=== PATIENT | female | born 2000 | race Hispanic/Latino ===

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

== ENCOUNTER 2021-01-05 10:56 | Emergency (ER) | payer OTHER ==
--- OUTSIDE RECORDS SUMMARY | 2021-01-05 10:58 | XMS REPORT | Continuity of Care Document ---
:2000 Author Organization [facility] t Address [address] [place] [address] Care Team Providers Name Role Phone Luis Alfredo Max DO Attending Clinician Doctor Unassigned, Name Attending Clinician Unavailable Akinsipe WHCNP, C Attending Clinician Arsenio COOMBSP, R Attending Clinician Problems This patient has no known problems. Allergies, Adverse Reactions, Alerts This patient has no known allergies or adverse reactions. Medications This patient has no known medications. Procedures This patient has no known procedures. Encounters Start End Encounter Admission Attending Care Care Encounter Source Date/Time Date/Time Type Type Clinicians Facility Department ID 2020-08-08 2020-08-08 Patient ZANDER Max [id number] 00:00:00 00:00:00 Outreach Luis Alfredo VILA [id number] Joey [facility] [id number] PRINCESS [id number] 2020-06-29 2020-06-29 Orders Doctor ALBA [id number] 00:00:00 00:00:00 Only UnassignedENEIDA [id number] Villan[place]va [facility] [id number] 2020-06-07 2020-06-07 Initial ZANDER Oneill [id number] 14:57:16 15:57:08 Rozina C ASSURANCE AUDITOR [id number] Visit REGIONAL [id number] MATERNAL [id number] & CHILD 107 [facility] 2020-06-07 2020-06-07 Orders Doctor ANJALI [id number] 00:00:00 00:00:00 Only Unassigned, ENEIDA [id number] [place] [id number] 2019-05-03 2019-05-03 Patient Doctor ANJALI [id number] 00:00:00 00:00:00 Secure Msg Unassigned, ENEIDA [id number] [place] [id number] 2019-02-04 2019-02-04 Routine Arsenio [facility] [id number] 10:51:35 11:16:15 Rosjovanynda R ASSURANCE AUDITOR [id number] Visit REGIONAL [id number] MATERNAL [id number] & CHILD 107 [facility] 2019-01-26 2019-01-26 Routine Arsenio [facility] [id number] 11:12:01 11:58:34 Roshunda R ASSURANCE AUDITOR [id number] Visit REGIONAL [id number] MATERNAL [id number] & CHILD 107 [facility] Results This patient has no known results.
--- NOTE | 2021-01-05 12:54 | RAD REPORT ---
EXAM DESCRIPTION: US - Abdomen Exam Limited - 01/05/2021 12:45 pm CLINICAL HISTORY: ABD PAIN COMPARISON: No comparisons FINDINGS: No gallstones, sludge or other abnormalities within the gallbladder lumen. There is no wal l thickening or pericholecystic fluid. No common duct stone or biliary tree dilatation identified. IMPRESSION: Normal gallbladder and biliary tree ultrasound.
[2021-01-05 13:58] LABS: Absolute Lymphocytes (CBC) 2.1 K/uL (0.7-4.9); Basophils % 0.6 % (0-1.3); Hematocrit 33.5 % (36.0-45.0); Lymphocytes % 22.3 % (15.3-44.8); MPV 9.1 fL (7.6-11.3); RBC Red Blood Cell Count 4.01 M/uL (3.86-4.86)
[2021-01-05 14:17] LABS: ALT/SGPT 18 U/L (12-78); AST/SGOT 13 U/L (15-37); Albumin 2.8 g/dL (3.4-5.0); Alkaline Phosphatase 145 U/L (45-117); BUN Blood Urea Nitrogen 7 mg/dL (7-18); Bicarbonate 23 mmol/L (21-32); Bilirubin Direct 0.1 mg/dL (0-0.2); Bilirubin Total 0.5 mg/dL (0.2-1.0); Glucose Level 65 mg/dL (74-106); Lipase 76 U/L (73-393); Protein, Total 7.4 g/dL (6.4-8.2); Sodium Level 138 mmol/L (136-145)
--- NOTE | 2021-01-05 14:39 | ER ---
Nurse's Notes [facility] Name: Maria L Foreman Age: 20 yrs Sex: Female : 2000 Arrival Date: 01/05/2021 Time: 10:57 Bed 20 Private MD: Jim Melo B Diagnosis: Upper abdominal pain, unspecified Presentation: 01/05 12:08 Chief complaint: Patient states: Epigastric pain, Nausea \T\ Vomiting starting at 0800. da3 Pt was seen at L\T\D and cleared. Coronavirus screen: Client denies travel out of the [place] in the last 14 days. At this time, unable to obtain information related to travel outside the [place] At this time, the client does not indicate any symptoms associated with coronavirus-19. Ebola Screen: Patient negative for fever greater than or equal to 101.5 degrees Fahrenheit, and additional compatible Ebola Virus Disease symptoms Patient denies exposure to infectious person. Patient denies travel to an Ebola-affected area in the 21 days before illness onset. Initial Sepsis Screen: Does the patient meet any 2 criteria? No. Patient's initial sepsis screen is negative. Does the patient have a suspected source of infection? No. Patient's initial sepsis screen is negative. Risk Assessment: Do you want to hurt yourself or someone else? Patient reports no desire to harm self or others. Onset of symptoms was January 05, 2021 at 08:00. 12:08 Method Of Arrival: Wheelchair da3 12:08 Acuity: LEV 3 da3 Triage Assessment: 12:11 General: Appears in no apparent distress. Behavior is calm, cooperative, appropriate da3 for age, quiet. Pain: Complains of pain in epigastric area Pain does not radiate. Pain currently is 8 out of 10 on a pain scale. at worst was 8 out of 10 on a pain scale. level that patient reports is acceptable is 3 out of 10 on a pain scale. Quality of pain is described as sharp, Is episodic. GI: Reports upper abdominal pain, nausea, vomiting. 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 - Social history:: Smoking status: Patient denies any tobacco usage or history of. Assessment: 15:12 Reassessment: Patient appears in no apparent distress at this time. Patient and/or ss family updated on plan of care and expected duration. Pain level reassessed. Patient is alert, oriented x 3, equal unlabored respirations, skin warm/dry/pink. FHTs 145. Vital Signs: 12:08 BP 106 / 75; Pulse 84; Resp 20; Temp 97.8(O); Pulse Ox 97% on R/A; Weight 89.36 kg (R); da3 Height 5 ft. 2 in. (157.48 cm) (R); Pain 7/10; 12:08 Body Mass Index 36.03 (89.36 kg, 157.48 cm) da3 ED Course: 10:57 Patient arrived in ED. am2 10:57 Jim Melo MD is Private Physician. am2 12:11 Triage completed. da3 12:11 Arm band placed on. da3 12:45 US Abdomen Limited In Process Unspecified. EDMS 13:24 Initial lab(s) drawn, by me, sent to lab. Inserted saline lock: 20 gauge in right dh3 antecubital area, using aseptic technique. Blood collected. 14:12 Patient placed in an exam room, on a stretcher. ll1 14:13 Shazia Malone FNP-C is [facility]. kb 14:13 Darvin Zuniga MD is Attending Physician. kb 14:59 Mohini Washington, CATAL[employer] is Primary Nurse. ss 15:11 No provider procedures requiring assistance completed. IV discontinued, intact, ss bleeding controlled, No redness/swelling at site. Pressure dressing applied. Administered Medications: 15:00 Drug: Pepcid (famotidine) 20 mg Route: IVP; Site: right antecubital; ss 15:12 Follow up: Response: No adverse reaction ss 15:00 Drug: Tylenol 650 mg Route: PO; ss 15:12 Follow up: Response: No adverse reaction ss Outcome: 14:38 Discharge ordered by . kb 15:11 Discharged to home ambulatory. ss 15:11 Condition: good 15:11 Discharge instructions given to patient, Instructed on discharge instructions, follow up and referral plans. medication usage, Demonstrated understanding of instructions, follow-up care. 15:12 Patient left the ED. ss Signatures: Dispatcher [employer] EDUT Shazia Malone, TABLE GAMES SHIFT MANAGER-C TABLE GAMES SHIFT MANAGER-Mohini Hewitt, RN RN Dai Esparza Nicole Lund 3 August Truong RN RN ll1 Everardo Serrato, RN RN da3
--- NOTE | 2021-01-05 14:39 | EDPHYS ---
[facility] Name: Maria L Foreman Age: 20 yrs Sex: Female : 2000 Arrival Date: 01/05/2021 Time: 10:57 Bed 20 Private MD: Jim Melo B ED Physician Darvin Zuniga HPI: 01/05 16:55 This 20 yrs old Female presents to ER via Wheelchair with complaints of kb Abdominal Pain - 36 wks preg. 16:55 The patient presents with abdominal pain in the epigastric area. Onset: The kb symptoms/episode began/occurred this morning. The symptoms do not radiate. Associated signs and symptoms: none. The symptoms are described as burning. Modifying factors: The symptoms are alleviated by nothing, the symptoms are aggravated by nothing. Severity of pain: At its worst the pain was mild moderate in the emergency department the pain is unchanged. The patient has not experienced similar symptoms in the past. The patient has not recently seen a physician. 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 - Social history:: Smoking status: Patient denies any tobacco usage or history of. ROS: 16:54 Constitutional: Negative for fever, chills, and weight loss. kb 16:54 Abdomen/GI: Positive for abdominal pain, Negative for nausea, vomiting, and diarrhea. 16:54 All other systems are negative. Exam: 16:54 Constitutional: This is a well developed, well nourished patient who is awake, alert, kb and in no acute distress. Head/Face: Normocephalic, atraumatic. ENT: Moist Mucous membranes Cardiovascular: Regular rate and rhythm with a normal S1 and S2. No gallops, murmurs, or rubs. No pulse deficits. Respiratory: Respirations even and unlabored. No increased work of breathing, no retractions or nasal flaring. Back: No spinal tenderness. No costovertebral tenderness. Full range of motion. Skin: Warm, dry with normal turgor. Normal color. MS/ Extremity: Pulses equal, no cyanosis. Neurovascular intact. Full, normal range of motion. Neuro: Awake and alert, GCS 15, oriented to person, place, time, and situation. Moves all extremities. Normal gait. Psych: Awake, alert, with orientation to person, place and time. Behavior, mood, and affect are within normal limits. 16:54 Abdomen/GI: Inspection: gravid appearance, is noted, Bowel sounds: normal, Palpation: soft, in all quadrants, mild abdominal tenderness, in the epigastric area. Vital Signs: 12:08 BP 106 / 75; Pulse 84; Resp 20; Temp 97.8(O); Pulse Ox 97% on R/A; Weight 89.36 kg (R); da3 Height 5 ft. 2 in. (157.48 cm) (R); Pain 7/10; 12:08 Body Mass Index 36.03 (89.36 kg, 157.48 cm) da3 MDM: 14:13 Patient medically screened. kb 16:53 Data reviewed: vital signs, nurses notes. Data interpreted: Pulse oximetry: on room air kb is 97 %. Interpretation: normal. Counseling: I had a detailed discussion with the patient and/or guardian regarding: the historical points, exam findings, and any diagnostic results supporting the discharge/admit diagnosis, lab results, radiology results, the need for outpatient follow up, a family practitioner, an OB/Gyne specialist, to return to the emergency department if symptoms worsen or persist or if there are any questions or concerns that arise at home. 01/05 12:18 Order name: Basic Metabolic Panel; Complete Time: 14:18 kb 01/05 12:18 Order name: CBC with Diff; Complete Time: 14:38 kb 01/05 12:18 Order name: Hepatic Function; Complete Time: 14:18 kb 01/05 12:18 Order name: Lipase; Complete Time: 14:18 kb 01/05 12:18 Order name: US Abdomen Limited; Complete Time: 13:45 kb 01/05 12:18 Order name: IV Saline Lock; Complete Time: 13:27 kb 01/05 12:18 Order name: Labs collected and sent; Complete Time: 13:27 kb Administered Medications: 15:00 Drug: Pepcid (famotidine) 20 mg Route: IVP; Site: right antecubital; ss 15:12 Follow up: Response: No adverse reaction ss 15:00 Drug: Tylenol 650 mg Route: PO; ss 15:12 Follow up: Response: No adverse reaction ss Disposition: 19:29 Co-signature as Attending Physician, Darvin Zuniga MD I agree with the assessment and kdr plan of care. Disposition Summary: 01/05/21 14:38 Discharge Ordered Location: Home kb Condition: Stable kb Diagnosis - Upper abdominal pain, unspecified kb Followup: kb - With: Emergency Department - When: As needed - Reason: Worsening of condition Followup: kb - With: Private Physician - When: 2 - 3 days - Reason: Recheck today's complaints, Continuance of care, Re-evaluation by your physician Discharge Instructions: - Discharge Summary Sheet kb - Abdominal Pain, Adult, [id number] kb - Abdominal Pain During , [id number] kb Forms: - Medication Reconciliation Form kb - Thank You Letter kb - Antibiotic Education kb - Prescription Opioid Use kb Signatures: Dispatcher [employer] EDShazia Mcclendon, PATIENT ACCOUNT LIAISON-C PATIENT ACCOUNT LIAISON-Darvin Garrsion MD MD kdr Smirch, Shelby, RN RN Everardo Mai, RN RN da3
[2021-01-05] MEDS ORDERED: ACETAMINOPHEN 325 MG TABLET ONE (15:26)
[2021-01-05] MEDS ORDERED: FAMOTIDINE 20 MG/2 ML VIAL IV ONE (15:27)
[2021-01-05 17:45] VITALS: BP 106/75; TEMP 97.8; O2SAT 97
== END 2021-01-05 15:12 | disposition home or self-care (01) ==
LOC: ER 10:56
DX: O26.893 Other specified pregnancy related conditions, third trimester (principal); Z3A.36 36 weeks gestation of pregnancy
CPT/HCPCS: 36415; 76705; 80048; 80076; 83690; 85025; 96374; 99284

== ENCOUNTER 2021-01-29 14:15 | Inpatient (IN) | payer OTHER ==
--- OUTSIDE RECORDS SUMMARY | 2021-01-29 14:18 | XMS REPORT | Continuity of Care Document ---
:2000 Author Organization [facility] t Address [address] [place] [address] Care Team Providers Name Role Phone Luis [...] ID 2020-08-08 2020-08-08 Patient ZANDER Max [id number] 00:00:00 00:00:00 Outreach Luis Alfredo VILA [id number] Joey [facility] [id number] PRINCESS [id number] 2020-06-29 2020-06-29 Orders Doctor ALBA [id number] 00:00:00 00:00:00 Only UnassignedENEIDA 350.1.13.[address] [facility] 4.2.7.2.686 [id number] 2020-06-07 2020-06-07 Initial ZANDER Oneill [id number] 14:57:16 15:57:08 Rozina C [employer] STATISTICAL PROGRAMMER [id number] Visit REGIONAL 4.2.7.2.686 MATERNAL [id number] & CHILD [address] [facility] 2020-06-07 2020-06-07 Orders Doctor ANJALI 1.2.840.114 [id number] 00:00:00 00:00:00 Only Unassigned, ENEIDA 350.1.13.10 [place] [id number] 2019-05-03 2019-05-03 Patient Doctor ANJALI [id number] 00:00:00 00:00:00 Secure Msg Unassigned, ENEIDA 350.1.13.10 [place] [id number] 2019-02-04 2019-02-04 Routine Arsenio [facility] 1.2.840.114 [id number] 10:51:35 11:16:15 Rosjovanynda R SAS STATISTICAL PROGRAMMER 350.1.13.10 Visit REGIONAL 4.2.7.2.686 MATERNAL [id number] & CHILD [address] [facility] 2019-01-26 2019-01-26 Routine Arsenio [facility] 1.2.840.114 [id number] 11:12:01 11:58:34 Roshunda R SAS STATISTICAL PROGRAMMER 350.1.13.10 Visit REGIONAL 4.2.7.2.686 MATERNAL [id number] & CHILD [address] [facility] Results This patient has no known results.
[2021-01-29 15:38] VITALS: BMI 38.0
[2021-01-29] MEDS ORDERED: BUTORPHANOL 1 MG/ML INJ IV PRN (16:07)
[2021-01-29] MEDS ORDERED: CARBOPROST TROME 250 MCG/ML IM PRN (16:07)
[2021-01-29] MEDS ORDERED: PROMETHAZINE INJ 25 MG/ML AMP IM PRN ×2 (16:07)
[2021-01-29] MEDS ORDERED: METHYLERGONOVINE 0.2MG/ML AMP IM PRN (16:07)
[2021-01-29] MEDS ORDERED: Ringers Lactate 1,000 ML IV PRN (16:07)
[2021-01-29] MEDS ORDERED: PENICILLIN 5 MU in NA CHLORIDE 0.9% 100 ML IV ONE (16:07)
[2021-01-29] MEDS ORDERED: PENICILLIN G POT 5 MU/100 ML VIAL IV SCH (17:00)
[2021-01-29] MEDS ORDERED: PENICILLIN 2.5 MU in NA CHLORIDE 0.9% 100 ML IV SCH (17:00)
[2021-01-29] MEDS ORDERED: Ringers Lactate 1,000 ML IV SCH (17:00)
[2021-01-29] MEDS ORDERED: OXYTOCIN/LR 20 UNIT/1,000 ML BAG IV SCH (17:00)
[2021-01-29 18:30] LABS: Absolute Lymphocytes (CBC) 2.4 K/uL (0.7-4.9); Basophils % 0.9 % (0-1.3); Hematocrit 34.4 % (36.0-45.0); Lymphocytes % 26.7 % (15.3-44.8); MPV 9.6 fL (7.6-11.3); RBC Red Blood Cell Count 4.05 M/uL (3.86-4.86)
[2021-01-29 23:10] LABS: RPR (Rapid Plasma Reagin) NON-REACT (NON-REACT)
[2021-01-30] MEDS ORDERED: PENICILLIN G POT 5 MU/VIAL IV ONE (03:15)
[2021-01-30] MEDS ORDERED: NA CHLORIDE 0.9% 50 ML ONE (03:16)
[2021-01-30] MEDS ORDERED: ROPIVACAINE HCL 0.2% 20ML AMP EP ONE (06:34)
[2021-01-30] MEDS ORDERED: FENTANYL CITR 100 MCG/2 ML IV ONE (06:34)
[2021-01-30] MEDS ORDERED: 0.2% ROPIVACAINE (200 MG/100 ML) BAG EP ONE (06:35)
[2021-01-30] MEDS ORDERED: LIDOCAINE 1% MPF 30 ML VIAL ONE (07:54)
[2021-01-30] MEDS ORDERED: METHYLERGONOVINE 0.2MG/ML AMP IM ONE (07:54)
--- NOTE | 2021-01-30 09:11 | PREOPHP ---
Date of Admission: 01/29/2021 History Of Present Illness: Maria L Foreman is a 21-year-old, 2, para 1, 38 weeks 6 days. Had oligohydramnios with the first necessitating induction. Had oligohydramnios with this pre gnancy, but it did seem to be improving. Secondary to a terrible cervix and weather conditions, it w as decided proceed with induction at 38 weeks and 6 days. A 2 cm on admission. The patient was cont racting on her own actually. Experienced spontaneous rupture of membranes, clear fluid even before t he Pitocin was started. Started on Pitocin at 3 a.m. and went rapidly to complete. During the labor , received Stadol 1 mg IV, Phenergan [address] Hernandez came in and did a quick one shot epidural. Family History: Mother with hypertension, diabetes on the paternal side of the family. Past Medical History: The patient has had no serious medical illnesses. Past Surgical History: No surgery. Allergies: NO ALLERGIES. Social History: No cigarette smoking. Medications: vitamins prior to admission. Physical Examination: HEENT: Clear. Pupils equal, round, and reactive to light and accommodation. Conjunctivae well perf used. No oral, lingual, buccal lesions. Chest and Lungs: Clear. Heart: Without murmurs, thrills, heaves, or rubs. Breasts: Without masses. Extremities: Clear without edema, cyanosis, or clubbing. Pelvic: A 2 cm, 50% effaced, vertex, well applied, -1 station. Assessment And Plan: Admit for delivery. The patient was obviously in early spontaneous labor. BUBBA/KITTY Voice ID: [id number]
--- NOTE | 2021-01-30 09:14 | DN ---
Surgeon: Jim Melo MD Maria L Foreman is a 21-year-old, 2, para 1, at 38 weeks 6 days, history of oligohydramnios. E xperienced spontaneous rupture of membranes before midnight, was started on penicillin prophylaxis. She received 3 doses during the labor. Stadol 1 mg IV, Phenergan 25 mg IM, at 5-6 cm, requested epid ural anesthesia. Dr. Hernandez did one shot epidural. Second stage of about 10-15 minutes. Spontaneous vaginal delivery of a 6-pound 11-ounce male , Apgars 9 and 9. No episiotomy. Two small first- degree lacerations, one below the clitoris which required several stitches of 2-0 chromic running and interrupted. One small laceration to posterior fourchette, 2 stitches of 2-0 chromic. Local infilt ration in both places as epidural is not fully functional. Tolerated all procedures well. She is re porting pruritus secondary to the epidural, but otherwise quite stable and doing well. The patient i s Rh positive, immune to rubella, negative COVID, positive strep for which she received prophylactic antibiotics x3. BUBBA/KITTY Voice ID: [id number] Report ID: [id number]
[2021-01-30] MEDS ORDERED: MEASLES,MUMPS,RUBELLA VAC 0.5ML SQVAC ONE (12:15)
[2021-01-30] MEDS ORDERED: Tdap (Diph,Pertuss(Acell),Tet Vac) 0.5 ML SYR IMVAC ONE (12:15)
[2021-01-30] MEDS ORDERED: DOCUSATE NA/SENNA CONC 1 TAB PO PRN (12:15)
[2021-01-30] MEDS ORDERED: ONDANSETRON 4 MG (ODT) TAB PO PRN (12:15)
[2021-01-30] MEDS ORDERED: IBUPROFEN 200 MG TAB PO PRN (12:15)
[2021-01-30] MEDS ORDERED: ACETAMINOPHEN 500 MG TAB PO PRN (12:15)
[2021-01-30] MEDS ORDERED: Oxycodone HCl/Acetaminophen 1 TAB TAB PO PRN ×2 (12:15→14:42)
[2021-01-30 20:03] LABS: Urine Appearance CLEAR (Clear); Urine Bilirubin NEGATIVE (Negative); Urine Blood 3+ (Negative); Urine Color YELLOW (Yellow); Urine Glucose NEGATIVE (Negative); Urine Protein 1+ (Negative)
[2021-01-30 20:04] LABS: Urine Microscopic Reflex ORDER UMIC
[2021-01-30 20:05] LABS: Urine Bacteria <20 /HPF (<20); Urine RBC >50 /HPF (NONE SEEN)
[2021-01-31 07:18] VITALS: BP 113/63; TEMP 96.9
--- NOTE | 2021-01-31 08:50 | DS ---
Hospital Course: Maria L Foreman is a 2, para 1, 38 weeks 6 days. Delivered of a 6-pound 11-o unce male , Apgars 9 and 9. Epidural anesthesia with local infiltration for repair of 2 small first-degree lacerations. Schultze delivery of the placenta, 300 mL blood loss at the time of delive ry. Penicillin prophylaxis x3 as the patient was beta strep positive. ; afebrile, ambulat ing and voiding. Lochia is normal. No complaints or problems. Rh positive, immune to rubella. Neg ative COVID. Requests no analgesics on dismissal. To return to my office in 6 weeks for followup to report any temperature elevation of 100 degrees or greater, severe pain, heavy bleeding, or any othe r type of abnormalities. Offered Tdap numerous times during the and again today. Final Diagnoses: Term intrauterine at 38 weeks 6 days, vaginal delivery, epidural anesthes ia, penicillin prophylaxis, Tdap offered. BUBBA/KITTY Voice ID: [id number] Report ID: [id number]
[2021-01-31] MEDS ORDERED: Tdap (Diph,Pertuss(Acell),Tet Vac) 0.5 ML SYR IMVAC ONE (09:05)
[2021-02-04 03:08] LABS: HBsAG Nonreactive (Nonreactive)
== END 2021-01-31 10:00 | disposition home or self-care (01) | DRG 807 ==
LOC: 2ND-WC 14:15
PROVIDERS: ADMIT Specialist; ATTEND Specialist
PROC: 10E0XZZ Delivery of Products of Conception, External Approach (ICD-10-PCS; principal; 2021-01-30)
PROC: 0HQ9XZZ Repair Perineum Skin, External Approach (ICD-10-PCS; 2021-01-30)
PROC: 3E033VJ Introduction of Other Hormone into Peripheral Vein, Percutaneous Approach (ICD-10-PCS; 2021-01-30)
DX: O41.03X0 Oligohydramnios, third trimester, not applicable or unspecified (principal); Z37.0 Single live birth; O99.824 Streptococcus B carrier state complicating childbirth; O70.0 First degree perineal laceration during delivery; O71.89 Other specified obstetric trauma; Z3A.38 38 weeks gestation of pregnancy; Z20.822 Contact with and (suspected) exposure to COVID-19; L29.9 Pruritus, unspecified; Z23 Encounter for immunization
CPT/HCPCS: 36415; 81003; 81015; 85025; 86592; 86901; 87086; 87088; 87340; 90471; 90715; J0595; J2210; J2540; J2550; J2590; J2795; J3010; J7120; U0003

== ENCOUNTER 2021-09-02 00:23 | Emergency (ER) | payer OTHER ==
--- OUTSIDE RECORDS SUMMARY | 2021-09-02 00:27 | XMS REPORT | Continuity of Care Document ---
:2000 Author Organization [facility] t Address [address] [place] [address] Care Team Providers Name Role Phone Gay Montana Primary Care Physician [phone] Dahiana Taylor Attending Clinician Joey Max DO Attending Clinician Dahiana WEBSTER Attending Clinician Unavailable Doctor Unassigned, Name Attending Clinician Unavailable Gina Montana Attending Clinician Payers Payer Name Policy Type Policy Number Effective Date Expiration Date S dorina MEDICAID PENDING PENDING 2020 00:00:00 Advance Directives Directive Decision Effective Termination Comments Source Date Date Healthcare Agents on N/A [facility] ersity FileNameRelationshipHealthcare [facility] Agent Medical RelationshipCommunicationAlexis oLbo SuarezlSpouseBerger Hospital Care [phone] (Mobile) [email or web address] Problems Condition Condition Condition Status Onset Resolution Last Treating Co mments Source Name Details Category Date Date Treatment Clinician Date Susceptibl Susceptibl Disease Active U nivers e to e to 1-21 ity of varicella varicella 00:00: Zoie dawkins (non-immun (non-immun 00 Me dical e), e), Branch currently currently Obesity in Obesity in Disease Active U nivers 1-20 ity of 00:00: [place] 00 Medical Branch History of History of Disease Active Overview : Univers gestationa gestationa 1-20 Formattin ity of l l 00:00: g of this [place] hypertensi hypertensi 00 note Me dical on on might be Branch different from the original. Reports with last not started on meds Multiparit Multiparit Disease Active U nivers y y 1-20 ity of 00:00: [place] 00 Medical Branch Supervisio Supervisio Disease Active U nivers n of n of -20 ity of high-risk high[place]risk [place] [facility] Allergies, Adverse Reactions, Alerts Allergy Allergy Status Severity Reaction(s) Onset Inactive Treating Comm ents Source Name Type Date Date Clinician NO KNOWN Drug Active Univers ALLERGIE Class ity of S [facility] Social History Social Habit Start Date Stop Date Quantity Comments Source Alcohol intake 2021-02-21 2021-02-21 Current [facility] 00:00:00 00:00:00 non-drinker of [facility] alcohol Branch (finding) Tobacco use and 2018-07-13 2018-07-13 Never used Universit y of exposure 00:00:00 00:00:00 [facility] Sex Assigned At [birth year] Universit y of 00:00:00 00:00:00 [facility] Smoking Status Start Date Stop Date Source Never smoker [facility] Medications Ordered Filled Start Stop Current Ordering Indication Dosage Frequency Signature Comments Components Source Medication Medication Date Date Medication? Clinician (SIG) Name Name norethindro 2018-05 Yes [id number] 1{tbl} Take 1 Univers ne 0.35 mg 1-12 tablet by ity of tablet 00:00: mouth [place] 00 daily. Medical Branch ibuprofen 2018-05 Yes [id number] 600mg Take 1 Univers 600 mg 0-01 tablet by ity of tablet 00:00: mouth [place] 00 every 6 Medical (six) Branch hours as needed for Pain (scale 1-3) or Pain (scale 4-6) (Pain). Take with food or milk. Immunizations Ordered Filled Immunization Date Status Comments Sour e Immunization Name Name Influenza Virus 2020-06-07 Completed Universit y of Vaccine Quad .5 mL 00:00:00 [facility] 6+ MO Branch Influenza Virus 2019-03-30 Completed Universit y of Vaccine Quad .5 mL 00:00:00 [facility] 6+ MO Branch TDAP 2018-12-01 Completed University of 00:00:00 [facility] Procedures This patient has no known procedures. Encounters Start End Encounter Admission Attending Care Care Encounter Source Date/Time Date/Time Type Type Clinicians Facility Department ID 2021-02-21 2021-02-21 Telephone Nino [facility] [id number] Univers 00:00:00 00:00:00 Rozina Talbot PROVIDER ENROLLMENT SPECIALIST [facility]13.[facility]2.7.2.686 Jeb as MATERNAL [id number] [facility] ical & CHILD [address] [place] [address] 2020-08-08 2020-08-08 Patient Mansoor [facility] 1.2.840.114 [id number] 00:00:00 00:00:00 Outreach [facility] 350.1.13.10 [facility] 4.2.7.2.686 [facility] [id number] 2020-07-05 2020-07-05 [facility] [id number] Univers 15:45:00 15:45:00 ROZINA [id number] ity o [facility] 2020-07-05 2020-07-05 [facility] [id number] Univers 15:45:00 15:45:00 ROZINA strauss o [facility] 2020-06-29 2020-06-29 Orders Doctor ANJALI 1.2.840.114 [id number] 00:00:00 00:00:00 Only Unassigned, ENEIDA 350.1.13.10 [place] [facility] 4.2.7.2.686 [id number] 2020-06-14 2020-06-14 Outpatient R [facility] [id number] Univers 08:15:00 08:15:00 [id number] ity [facility] 2020-06-14 2020-06-14 Outpatient R [facility] [id number] Univers 08:15:00 08:15:00 ity [facility] 2020-06-07 2020-06-07 Initial Bolivaremily [facility] [id number] 14:57:16 15:57:08 Rozina Talbot PROVIDER ENROLLMENT SPECIALIST 350.1.13.10 Visit REGIONAL 4.2.7.2.686 MATERNAL [id number] & CHILD 107 [facility] 2020-06-07 2020-06-07 Outpatient R [facility] [id number] Univers 14:00:00 14:00:00 [id number] ity [facility] 2020-06-07 2020-06-07 Outpatient R AKINLORRIEEMILY, [facility] [id number] Univers 14:00:00 14:00:00 ROZINA amin [facility] 2020-06-07 2020-06-07 Orders Doctor ANJALI 1.2.840.114 [id number] 00:00:00 00:00:00 Only Unassigned, ENEIDA 350.1.13.[address] [place]2.7.2.686 [id number] [id number] 2019-05-03 2019-05-03 Patient Doctor ANJALI 1.2.840.114 [id number] 00:00:00 00:00:00 Secure Msg Unassigned, ENEIDA 350.1.13.10 [place]2.7.2.686 [id number] [id number] 2019-02-04 2019-02-04 Routine ZANDER Cesar 1.2.840.114 [id number] 10:51:35 11:16:15 Susiea R PROVIDER ENROLLMENT SPECIALIST 350.1.13.10 Visit REGIONAL 4.2.7.2.686 MATERNAL [id number] & CHILD 107 [facility] 2019-01-26 2019-01-26 Routine Arsenio TNSTEVE 1.2.840.114 [id number] 11:12:01 11:58:34 Roshunda R PROVIDER ENROLLMENT SPECIALIST 350.1.13.10 Visit REGIONAL 4.2.7.2.686 MATERNAL [id number] & CHILD 107 [facility] Results This patient has no known results.
--- NOTE | 2021-09-02 01:27 | ER ---
Nurse's Notes [facility] Name: Maria L Foreman Age: 21 yrs Sex: Female : 2000 Arrival Date: 09/02/2021 Time: 00:26 Bed 4 Private MD: Diagnosis: Suspected foreign body in vagina Presentation: 09/02 00:36 Chief complaint: Patient states: "I tried to take out my tampon and I guess I forced it as6 more in there" pt reports tampon has been in for about 3 hours. Coronavirus screen: At this time, the client does not indicate any symptoms associated with coronavirus-19. Ebola Screen: No symptoms or risks identified at this time. Initial Sepsis Screen: Does the patient meet any 2 criteria? No. Patient's initial sepsis screen is negative. Does the patient have a suspected source of infection? No. Patient's initial sepsis screen is negative. Risk Assessment: Do you want to hurt yourself or someone else? Patient reports no desire to harm self or others. Onset of symptoms was September 01, 2021 at 22:00. 00:36 Method Of Arrival: Ambulatory as6 00:36 Acuity: LEV 4 as6 BAND MANAGER: 00:43 LMP 08/29/2021 as6 Historical: - Allergies: 00:42 No Known Allergies; as6 - Home Meds: 00:42 None [Active]; as6 - PMHx: 00:42 None; as6 - PSHx: 00:42 None; as6 - Immunization history:: Client reports having NOT received the Covid vaccine. - Social history:: Smoking status: Patient denies any tobacco usage or history of. - Family history:: not pertinent. - Hospitalizations: : No recent hospitalization is reported. Screenin:43 Abuse screen: Denies threats or abuse. Denies injuries from another. Nutritional as6 screening: No deficits noted. Tuberculosis screening: No symptoms or risk factors identified. Fall Risk None identified. Assessment: 00:43 General: Appears in no apparent distress. Behavior is calm, cooperative. Pain: Denies as6 pain. Neuro: Level of Consciousness is awake, alert, obeys commands, Oriented to person, place, time, situation. Cardiovascular: Capillary refill < 3 seconds Patient's skin is warm and dry. Respiratory: Airway is patent Trachea midline Respiratory effort is even, unlabored, Respiratory pattern is regular, symmetrical. Vital Signs: 00:36 BP 124 / 81; Pulse 74; Resp 18 S; Temp 97.8(O); Pulse Ox 100% on R/A; Weight 81.65 kg as6 (R); Height 5 ft. 2 in. (157.48 cm) (R); Pain 0/10; 01:24 BP 111 / 85; Pulse 70; Resp 18 S; Pulse Ox 98% on R/A; as6 00:36 Body Mass Index 32.92 (81.65 kg, 157.48 cm) as6 ED Course: 00:26 Patient arrived in ED. bp1 00:29 Dev Selby MD is Attending Physician. rn 00:34 Benedicto Ashley, CATALINA is Primary Nurse. as6 00:42 Triage completed. as6 00:43 Arm band placed on. as6 00:44 Placed in gown. Bed in low position. Call light in reach. Side rails up X2. Pulse ox as6 on. NIBP on. 01:26 Jim Melo MD is Referral Physician. rn 01:30 Assist provider with pelvic exam: Set up pelvic tray. Performed by Dev Selby MD as6 Patient tolerated well. Patient did not have IV access during this emergency room visit. Administered Medications: No medications were administered Outcome: 01:27 Discharge ordered by . rn 01:37 Discharged to home ambulatory. as6 01:37 Condition: stable 01:37 Discharge instructions given to patient, Instructed on discharge instructions, follow up and referral plans. Demonstrated understanding of instructions, follow-up care. 01:37 Patient left the ED. as6 Signatures: Dev Selby MD MD rn [place], Brittany bp1 Benedicto Ashley RN RN as6
--- NOTE | 2021-09-02 01:28 | EDPHYS ---
Physician Documentation [facility] Name: Maria L Foreman Age: 21 yrs Sex: Female : 2000 Arrival Date: 09/02/2021 Time: 00:26 Bed 4 Private MD: ED Physician Dev Selby HPI: 09/02 00:42 This 21 yrs old Female presents to ER via Ambulatory with complaints of rn Foreign body In Vagina. 00:42 The patient presents with. rn 00:42 The patient or guardian reports the patient has a suspected foreign body, of the rn vagina. The reported likely foreign body is a tampon. Onset: The symptoms/episode began/occurred today. Current symptoms: foreign body sensation. The patient has not experienced similar symptoms in the past. The patient has not recently seen a physician. Pt reports removing tampon and things broke in half, is dry, states thinks can still see it but didn't want to dig it out so came in.. MANAGER ECONOMIC: 00:43 LMP 08/29/2021 as6 Historical: - Allergies: 00:42 No Known Allergies; as6 - Home Meds: 00:42 None [Active]; as6 - PMHx: 00:42 None; as6 - PSHx: 00:42 None; as6 - Immunization history:: Client reports having NOT received the Covid vaccine. - Social history:: Smoking status: Patient denies any tobacco usage or history of. - Family history:: not pertinent. - Hospitalizations: : No recent hospitalization is reported. ROS: 00:42 Constitutional: Negative for fever, chills, and weight loss, Abdomen/GI: Negative for rn abdominal pain, nausea, vomiting, diarrhea, and constipation, : + foreign body in vagina Exam: 00:42 Constitutional: This is a well developed, well nourished patient who is awake, alert, rn and in no acute distress. Abdomen/GI: soft, non-tender 01:23 : Pelvic Exam: Speculum exam: scant bleeding, no foreign body identified, scant rn amount of blood, larger speculum used and rotated still no foreign body identified.. Vital Signs: 00:36 BP 124 / 81; Pulse 74; Resp 18 S; Temp 97.8(O); Pulse Ox 100% on R/A; Weight 81.65 kg as6 (R); Height 5 ft. 2 in. (157.48 cm) (R); Pain 0/10; 01:24 BP 111 / 85; Pulse 70; Resp 18 S; Pulse Ox 98% on R/A; as6 00:36 Body Mass Index 32.92 (81.65 kg, 157.48 cm) as6 MDM: 00:29 Patient medically screened. rn 01:23 Data reviewed: vital signs, nurses notes, and as a result, I will discharge patient. rn Counseling: I had a detailed discussion with the patient and/or guardian regarding: the historical points, exam findings, and any diagnostic results supporting the discharge/admit diagnosis, the need for outpatient follow up, to return to the emergency department if symptoms worsen or persist or if there are any questions or concerns that arise at home. ED course: NO foreign body identified on speculum exam, no further tools available other than 2 speculums, will dc home with return precautions and urged to f/u with [facility] tomorrow given is friday.. 04:10 ED course: No vaginal discharge or foul smell noted. ED course: Recommend f/u with [facility] [facility] rn and given return precautions if notices foul smell or drainage. . 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
[2021-09-02 01:46] VITALS: TEMP 97.8
[2021-09-02 01:47] VITALS: BP 111/85; O2SAT 98
== END 2021-09-02 01:37 | disposition home or self-care (01) ==
LOC: ER 00:23
DX: Z71.1 Person with feared health complaint in whom no diagnosis is made (principal)
CPT/HCPCS: 99283

== ENCOUNTER 2023-09-15 06:58 | Emergency (ER) | payer SELFPAY ==
--- OUTSIDE RECORDS SUMMARY | 2023-09-15 07:04 | XMS REPORT | Continuity of Care Document ---
Author Name Unknown Address [address] [facility] [address] [place] [address] [facility] thconnect Address [address] [facility]. [address] [place] [address] Care Team Providers Care Braker Passenger Train Name Role Phone Rozina Taylor Primary Care Physicia n MERLY GARDNER Attending Clinician ROZINA Ortiz Attending Clinician Unavail able Visit, Ryann Nurse Attending Clinician Unava ilRozina Lemus Attending Clinician + ANJALI MEDEROS Attending Clinician Unavailable Doctor Unassigned, [place] Attending Clinician U karol Tinoco MD, Turner Attending Clinician [phone] Oscar Gonzalez MD Attending Clinician [phone] Winston Farley MD Attending Clinician [phone] Merly Gardner CNM Attending Clinician [phone] Provider, Ryann Temrudy Attending Clinician Sherri vailable Ultrasound, Jorgelisa Attending Clinician UnavailMerary Metz MD Attending Clinician [phone] MERARY SMILEY Attending Clinician Unavailable MERARY SMILEY Attending Clinician Unavailable GAY COE Attending Clinician Unavailab brittany Dominguez MD, Last Melgar Attending Clinician + LAST DOMINGUEZ Attending Clinician Unav ailable Xochitl ROMULO, Clara George Attending Clinician Gay [place] Attending Clinician Luis Alfredo Max DO Attending Clinician Earnest CORTEZ, Turner Admitting Clinician Payers Payer Name Policy Type Policy Number Effective Date Expirati on Date Source [facility] [id number] 2022 00:00:00 MEDICAID PENDING PENDING 2020 00:00:00 Problems Condition Name Condition Details Condition Category Status Onset Date Resolution Date Last Treatment Date Treating Clinician Comments Source Pre-eclamp ruthie in third trimester Pre-eclamp ruthie in third trimester Disease Active 4-06 00:00: 00 [facility] Acute blood loss anemia Acute blood loss anemia Disease Active 4-06 00:00: 00 [facility] Obstetrica l laceration Obstetrica l laceration Disease Active 4-06 00:00: 00 [facility] Elevated blood pressure reading without diagnosis of hypertensi on Elevated blood pressure reading without diagnosis of hypertensi on Disease Active 4-04 00:00: 00 [facility] 38 weeks gestation of 38 weeks gestation of Disease Active 4-04 00:00: 00 [facility] Anemia of mother in , antepartum Anemia of mother in , antepartum Disease Active 2- 00:00: 00 [facility] Anemia of mother in , antepartum Anemia of mother in , antepartum Disease Active 2- 00:00: 00 [facility] Pain of round ligament affecting , antepartum Pain of round ligament affecting , antepartum Disease Active 06-19 00:00: 00 [facility] GBS (group B streptococ cus) UTI complicati ng GBS (group B streptococ cus) UTI complicati ng Disease Active 2021-05 00:00: 00 [facility] History of HSV History of HSV Disease Active 2021-05 00:00: 00 [facility] Herpes infection in Herpes infection in Disease Active 2021-05 00:00: 00 [facility] Susceptibl e to varicella (non-immun e), currently Susceptibl e to varicella (non-immun e), currently Disease Active 06-08 00:00: 00 [facility] Obesity in Obesity in Disease Active 06-07 00:00: 00 [facility] History of gestationa l hypertensi on History of gestationa l hypertensi on Disease Active 06-07 00:00: 00 Overview: Formattin g of this note might be different from the original. Reports with last not started on meds [facility] Multiparit y Multiparit y Disease Active 06-07 00:00: 00 [facility] Supervisio n of high-risk Supervisio n of high-risk Disease Active 06-07 00:00: 00 [facility] (spontaneo us vaginal delivery) (spontaneo us vaginal delivery) Disease Active 2018-05 00:00: 00 [facility] Single live Single live Disease Active 2018-05 0 00:00: 00 [facility] Maternal varicella, non-immune Maternal varicella, non-immune Disease Active 07-14 00:00: 00 Overview: Formattin g of this note might be different from the original. [facility] Allergies, Adverse Reactions, Alerts Allergy Name Allergy Type Status Severity Reaction(s) Onset Date Inactive Date Treating Clinician Comments Source NO KNOWN ALLERGIE S Drug Class Active [facility] Social History Social Habit Start Date Stop Date Quantity Comments Source ASSERTION 2021-12-11 00:00:00 [facility] to SARS-CoV-2 (event) 2022-08-18 00:00:00 2022-08-28 13:35:00 Not sure [facility] History of Social function 2022-01-31 00:00:00 2022-01-31 00:00:00 [facility] Tobacco use and exposure 2022-01-31 00:00:00 2022-01-31 00:00:00 Smokeless tobacco non-user [facility] Alcohol intake 2022-01-31 00:00:00 2022-01-31 00:00:00 Current non-drinker of alcohol (finding) [facility] Sex Assigned At 2000 00:00:00 2000 00:00:00 [facility] Smoking Status Start Date Stop Date Source Never smoked tobacco [facility] Medications Ordered Medication Name Filled Medication Name Start Date Stop Date Current Medication? Ordering Clinician Indication Dosage Frequency Signature (SIG) Comments Components Source [id number] fum-folic () 27 mg iron- 1 mg folic tablet 08-22 00:00: 00 Yes [id number] 1{tbl} Take 1 tablet by mouth in the morning. [facility] docusate 100 mg capsule 08-22 00:00: 00 Yes [id number] 200mg Take 2 capsules by mouth once daily as needed for Constipati on. [facility] ferrous sulfate 325 mg (65 mg iron) tablet 08-22 00:00: 00 Yes [id number] 325mg Take 1 tablet by mouth in the morning. [facility] ibuprofen 600 mg tablet 08-22 00:00: 00 Yes [id number] 600mg Take 1 tablet by mouth every 6 (six) hours as needed (Pain). Take with food or milk. [facility] [id number] fum-folic () 27 mg iron- 1 mg folic tablet 08-22 00:00: 00 Yes [id number] 1{tbl} Take 1 tablet by mouth in the morning. [facility] ibuprofen (IBU) tablet 600 mg 08-21 17:00: 00 Yes 600mg 600 mg, Oral, Q6H, First dose on Fri08/21/22 at 1200, Until Discontinu ed, Routine [facility] INVESTIGATI ONAL DRUG - hydrochloro thiazide 50 mg or placebo capsule 08-21 15:45: 00 09-04 13:59 :00 No 50mg 50 mg, Oral, DAILY, 14 doses, First dose (after last modificati on) on Fri08/21/22 at 1045, Last dose on Fri09/03/22 at 0900, Routine
Principal investigat or: SAVANNA HAN [facility] rho(D) immune globulin (RHOGAM) syringe 300 mcg 08-21 13:02: 12 Yes 300ug 300 mcg, Intramuscu lar, ONCE, For 1 dose, Conditiona l, Routine [facility] acetaminoph en (TYLENOL) tablet 650 mg 08-21 13:02: 08 Yes 650mg 650 mg, Oral, Q6HPRN, Starting on Fri08/21/22 at 0802, Until Discontinu ed, Routine, Pain (scale 1-3) [facility] diphenhydrA MINE (BENADRYL) tablet 25 mg 08-21 13:02: 08 Yes 25mg 25 mg, Oral, Q6HPRN, Starting on Fri08/21/22 at 0802, Until Discontinu ed, Routine, Sleep, Itching [facility] ondansetron (ZOFRAN (PF)) injection 4 mg 08-21 13:02: 08 Yes 4mg 4 mg, Slow IV Push, Q8HPRN, Starting on Fri08/21/22 at 0802, Until Discontinu ed, Routine, Nausea and Vomiting (N/V) [facility] simethicone (GAS RELIEF (SIMETHICON E)) chewable tablet 160 mg 08-21 13:02: 08 Yes 160mg 160 mg, Oral, PC+HSPRN, Starting on Fri08/21/22 at 0802, Until Discontinu ed, Routine, Gas [facility] docusate (COLACE) capsule 200 mg 08-21 13:02: 08 Yes 200mg 200 mg, Oral, QDAILYPRN, Starting on Fri08/21/22 at 0802, Until Discontinu ed, Routine, Constipati on [facility] magnesium hydroxide (MILK OF MAGNESIA) 400 mg/5 mL suspension 30 mL 08-21 13:02: 08 Yes 30mL 30 mL, Oral, QDAILYPRN, Starting on Fri08/21/22 at 0802, Until Discontinu ed, Routine, Constipati on [facility] benzocaine- menthol (DERMOPLAST ) 20-0.5 % topical spray 08-21 13:02: 07 Yes Topical, PRN, Starting on Fri08/21/22 at 0802, Until Discontinu ed, Routine, Perineum discomfort [facility] ibuprofen (IBU) tablet 600 mg 08-21 11:45: 00 08-21 10:55 :00 No 600mg 600 mg, Oral, ONCE, 1 dose, On Fri08/21/22 at 0645, Routine [facility] ceFAZolin (ANCEF) 1,000 mg in NaCl 0.9% (NS) 100 mL MINI-BAG 08-21 11:45: 00 08-21 11:35 :30 No 1000mg 1,000 mg, Intravenou s, ONCE, 1 dose, On Fri08/21/22 at 0645, Administer over 30 Minutes, 100 mL
Reas on for Anti-Infec tive: Empiric Non-Surgic al Prophylaxi s
Durat ion of therapy: 72 hours [facility] oxytocin (PITOCIN) 30 units in NS 500 mL IV infusion 08-21 10:06: 19 08-21 13:02 :10 No 600mL/h 600 mL/hr, IV Infusion, PRN, For post delivery uterine atony., Starting on Fri08/21/[address] at 600 mL/hr for 1 hr then 150 mL/hr for 1 hr.
[facility] oxytocin (PITOCIN) 30 units in NS 500 mL IV infusion 08-21 10:06: 19 08-21 13:02 :10 No 300mL/h 300 mL/hr, IV Infusion, SEE-INSTRU CTIONS, Starting on Fri08/21/[address] at 300 mL/hr for 1 hr then 150 mL/hr for 1 hr. & nbsp; For post delivery uterotonic
[facility] ondansetron (ZOFRAN (PF)) injection 4 mg 08-21 06:30: 00 08-21 05:48 :00 No 4mg 4 mg, Slow IV Push, ONCE, On Fri08/21/22 at 0130, For 1 dose
Do ses of ondansetro n 16 mg and above need to be administer ed via IV piggyback. For Dose >=24mg ECG monitoring is advisable.
[facility] lactated ringers IV infusion 500 mL 08-21 04:30: 00 08-21 03:48 :38 No 500mL at 999 mL/hr, 500 mL, IV Infusion, ONCE, 1 dose, On Fri08/20/22 at 2330, Routine [facility] lidocaine-e pinephrine (XYLOCAINE W/EPINEPHRI NE) 1.5 %-1:200,000 injection 08-21 04:18: 00 08-21 11:52 :22 No Intraderma l, ONCE INTRA PROCEDURE, Starting on Fri08/20/22 at 2318, Until Discontinu ed, Routine, Intra-op [facility] ropivacaine 0.2 % (NAROPIN (PF)) epidural infusion 08-21 04:18: 00 08-21 11:52 :22 No Epidural, CONTINUOUS PRN, Starting on Fri08/20/22 at 2318, Until Discontinu ed, Routine, Intra-op [facility] lactated ringers IV infusion 500 mL 08-21 03:35: 45 08-21 09:47 :04 No 500mL at 999 mL/hr, 500 mL, IV Infusion, PRN - SEE INSTRUCTIO NS, 1 dose, Starting on Fri08/20/22 at 2235, Until Fri08/21/22 at 0447, Routine [facility] sodium citrate-cit ronni acid (BICITRA) 500-334 mg/5 mL solution 30 mL 08-21 03:35: 45 08-21 03:49 :00 No 30mL 30 mL, Oral, PRE-PROCED URE ONCE, 1 dose, Starting on Fri08/20/22 at 2235, Until Fri08/20/22 at 2249, Routine, Surgery/Pr ocedure [facility] D5W-LR IV infusion 1,000 mL 08-21 01:31: 21 08-21 13:02 :10 No 1000mL at 1-125 mL/hr, IV Infusion, TITRATE, Starting on Fri08/20/22 at 2031, Until Fri08/21/22 at 0802, Routine [facility] acyclovir 400 mg tablet 07-31 00:00: 00 Yes [id number] 400mg Take 1 tablet by mouth in the morning and 1 tablet at noon and 1 tablet in the evening. [facility] Iron Fum & P-FA-Vit B & C No.9 (INTEGRA PLUS) 125 mg iron- 1 mg Cap - 00:00: 00 08-22 00:00 :00 No [id number] 1{capsu le} Take 1 capsule by mouth daily. [facility] aspirin 81 mg chewable tablet 2021-05- 00:00: 00 08-22 00:00 :00 No [id number] 81mg Take 1 tablet by mouth in the morning. [facility] ampicillin 500 mg capsule 02-04 00:00: 00 02-15 04:59 :00 No [id number] 500mg Take 1 capsule by mouth every 6 (six) hours for 10 days. [facility] vit 33-iron-fol ic-dha (SELECT-OB + DHA) 29 mg iron-1 mg -250 mg combo pack 01-31 00:00: 00 08-22 00:00 :00 No [id number] 1{packe t} Take 1 Packet by mouth in the morning. [facility] vit 33-iron-fol ic-dha (SELECT-OB + DHA) 29 mg iron-1 mg -250 mg combo pack -15 00:00: 00 08-22 00:00 :00 No [id number] 1{packe t} Take 1 Packet by mouth in the morning. [facility] norethindro ne 0.35 mg tablet 2018-05 00:00: 03-22 00:00 :00 No [id number] 1{tbl} Take 1 tablet by mouth daily. [facility] ibuprofen 600 mg tablet 2018-05 00:00: 00 03-22 00:00 :00 No [id number] 600mg Take 1 tablet by mouth every 6 (six) hours as needed for Pain (scale 1-3) or Pain (scale 4-6) (Pain). Take with food or milk. [facility] Immunizations Ordered Immunization Name Filled Immunization Name Date Status Comments Source TD 2022-06-18 00:00:00 Completed [facility] TDAP 2022-06-18 00:00:00 Completed [facility] TDAP 2022-06-18 00:00:00 Completed [facility] TDAP 2022-06-18 00:00:00 Completed [facility] TDAP 2022-06-18 00:00:00 Completed [facility] TDAP 2022-06-18 00:00:00 Completed [facility] TDAP 2022-06-18 00:00:00 Completed [facility] TDAP 2022-06-18 00:00:00 Completed [facility] TDAP 2022-06-18 00:00:00 Completed [facility] TDAP 2022-06-18 00:00:00 Completed [facility] TDAP 2022-06-18 00:00:00 Completed [facility] TDAP 2022-06-18 00:00:00 Completed [facility] TDAP 2022-06-18 00:00:00 Completed [facility] TDAP 2022-06-18 00:00:00 Completed [facility] Influenza Virus Vaccine Quad IM, Preserv and ABX Free 6 MO-64 YRS 2022-01-31 00:00:00 Completed [facility] Influenza Virus Vaccine Quad IM, Preserv and ABX Free 6 MO-64 YRS 2022-01-31 00:00:00 Completed [facility] Influenza Virus Vaccine Quad IM, Preserv and ABX Free 6 MO-64 YRS 2022-01-31 00:00:00 Completed [facility] Influenza Virus Vaccine Quad IM, Preserv and ABX Free 6 MO-64 YRS 2022-01-31 00:00:00 Completed [facility] Influenza Virus Vaccine Quad IM, Preserv and ABX Free 6 MO-64 YRS 2022-01-31 00:00:00 Completed [facility] Influenza Virus Vaccine Quad IM, Preserv and ABX Free 6 MO-64 YRS 2022-01-31 00:00:00 Completed [facility] Influenza Virus Vaccine Quad IM, Preserv and ABX Free 6 MO-64 YRS 2022-01-31 00:00:00 Completed [facility] Influenza Virus Vaccine Quad IM, Preserv and ABX Free 6 MO-64 YRS 2022-01-31 00:00:00 Completed [facility] Influenza Virus Vaccine Quad IM, Preserv and ABX Free 6 MO-64 YRS 2022-01-31 00:00:00 Completed [facility] Influenza Virus Vaccine Quad IM, Preserv and ABX Free 6 MO-64 YRS 2022-01-31 00:00:00 Completed [facility] Influenza Virus Vaccine Quad IM, Preserv and ABX Free 6 MO-64 YRS 2022-01-31 00:00:00 Completed [facility] Influenza Virus Vaccine Quad IM, Preserv and ABX Free 6 MO-64 YRS 2022-01-31 00:00:00 Completed [facility] Influenza Virus Vaccine Quad IM, Preserv and ABX Free 6 MO-64 YRS 2022-01-31 00:00:00 Completed [facility] Influenza Virus Vaccine Quad IM, Preserv and ABX Free 6 MO-64 YRS 2022-01-31 00:00:00 Completed [facility] Influenza Virus Vaccine Quad IM, Preserv and ABX Free 6 MO-64 YRS 2022-01-31 00:00:00 Completed [facility] Influenza Virus Vaccine Quad IM, Preserv and ABX Free 6 MO-64 YRS 2022-01-31 00:00:00 Completed [facility] Influenza Virus Vaccine Quad IM, Preserv and ABX Free 6 MO-64 YRS 2022-01-31 00:00:00 Completed [facility] Influenza Virus Vaccine Quad IM, Preserv and ABX Free 6 MO-64 YRS 2022-01-31 00:00:00 Completed [facility] Influenza Virus Vaccine Quad IM, Preserv and ABX Free 6 MO-64 YRS 2022-01-31 00:00:00 Completed [facility] Influenza Virus Vaccine Quad IM, Preserv and ABX Free 6 MO-64 YRS 2022-01-31 00:00:00 Completed [facility] Influenza Virus Vaccine Quad IM, Preserv and ABX Free 6 MO-64 YRS 2022-01-31 00:00:00 Completed [facility] Influenza Virus Vaccine Quad IM, Preserv and ABX Free 6 MO-64 YRS 2022-01-31 00:00:00 Completed [facility] Influenza Virus Vaccine Quad IM, Preserv and ABX Free 6 MO-64 YRS 2022-01-31 00:00:00 Completed [facility] Influenza Virus Vaccine Quad IM, Preserv and ABX Free 6 MO-64 YRS 2022-01-31 00:00:00 Completed [facility] Influenza Virus Vaccine Quad IM, Preserv and ABX Free 6 MO-64 YRS 2022-01-31 00:00:00 Completed [facility] Influenza Virus Vaccine Quad IM, Preserv and ABX Free 6 MO-64 YRS 2022-01-31 00:00:00 Completed [facility] Influenza Virus Vaccine Quad .5 mL IM 6+ MO 2020-06-07 00:00:00 Completed [facility] Influenza Virus Vaccine Quad .5 mL IM 6+ MO 2020-06-07 00:00:00 Completed [facility] Influenza Virus Vaccine Quad .5 mL IM 6+ MO 2020-06-07 00:00:00 Completed [facility] Influenza Virus Vaccine Quad .5 mL IM 6+ MO 2020-06-07 00:00:00 Completed [facility] Influenza Virus Vaccine Quad .5 mL IM 6+ MO 2020-06-07 00:00:00 Completed [facility] Influenza Virus Vaccine Quad .5 mL IM 6+ MO 2020-06-07 00:00:00 Completed [facility] Influenza Virus Vaccine Quad .5 mL IM 6+ MO 2020-06-07 00:00:00 Completed [facility] Influenza Virus Vaccine Quad .5 mL IM 6+ MO 2020-06-07 00:00:00 Completed [facility] Influenza Virus Vaccine Quad .5 mL IM 6+ MO 2020-06-07 00:00:00 Completed [facility] Influenza Virus Vaccine Quad .5 mL IM 6+ MO 2020-06-07 00:00:00 Completed [facility] Influenza Virus Vaccine Quad .5 mL IM 6+ MO 2020-06-07 00:00:00 Completed [facility] Influenza Virus Vaccine Quad .5 mL IM 6+ MO 2020-06-07 00:00:00 Completed [facility] Influenza Virus Vaccine Quad .5 mL IM 6+ MO 2020-06-07 00:00:00 Completed [facility] Influenza Virus Vaccine Quad .5 mL IM 6+ MO 2020-06-07 00:00:00 Completed [facility] Influenza Virus Vaccine Quad .5 mL IM 6+ MO 2020-06-07 00:00:00 Completed [facility] Influenza Virus Vaccine Quad .5 mL IM 6+ MO 2020-06-07 00:00:00 Completed [facility] Influenza Virus Vaccine Quad .5 mL IM 6+ MO 2020-06-07 00:00:00 Completed [facility] Influenza Virus Vaccine Quad .5 mL IM 6+ MO 2020-06-07 00:00:00 Completed [facility] Influenza Virus Vaccine Quad .5 mL IM 6+ MO 2020-06-07 00:00:00 Completed [facility] Influenza Virus Vaccine Quad .5 mL IM 6+ MO 2020-06-07 00:00:00 Completed [facility] Influenza Virus Vaccine Quad .5 mL IM 6+ MO 2020-06-07 00:00:00 Completed [facility] Influenza Virus Vaccine Quad .5 mL IM 6+ MO 2020-06-07 00:00:00 Completed [facility] Influenza Virus Vaccine Quad .5 mL IM 6+ MO 2020-06-07 00:00:00 Completed [facility] Influenza Virus Vaccine Quad .5 mL IM 6+ MO 2020-06-07 00:00:00 Completed [facility] Influenza Virus Vaccine Quad .5 mL IM 6+ MO 2020-06-07 00:00:00 Completed [facility] Influenza Virus Vaccine Quad .5 mL IM 6+ MO 2020-06-07 00:00:00 Completed [facility] Influenza Virus Vaccine Quad .5 mL IM 6+ MO 2019-03-30 00:00:00 Completed [facility] Influenza Virus Vaccine Quad .5 mL IM 6+ MO 2019-03-30 00:00:00 Completed [facility] Influenza Virus Vaccine Quad .5 mL IM 6+ MO 2019-03-30 00:00:00 Completed [facility] Influenza Virus Vaccine Quad .5 mL IM 6+ MO 2019-03-30 00:00:00 Completed [facility] Influenza Virus Vaccine Quad .5 mL IM 6+ MO 2019-03-30 00:00:00 Completed [facility] Influenza Virus Vaccine Quad .5 mL IM 6+ MO 2019-03-30 00:00:00 Completed [facility] Influenza Virus Vaccine Quad .5 mL IM 6+ MO 2019-03-30 00:00:00 Completed [facility] Influenza Virus Vaccine Quad .5 mL IM 6+ MO 2019-03-30 00:00:00 Completed [facility] Influenza Virus Vaccine Quad .5 mL IM 6+ MO 2019-03-30 00:00:00 Completed [facility] Influenza Virus Vaccine Quad .5 mL IM 6+ MO 2019-03-30 00:00:00 Completed [facility] Influenza Virus Vaccine Quad .5 mL IM 6+ MO 2019-03-30 00:00:00 Completed [facility] Influenza Virus Vaccine Quad .5 mL IM 6+ MO 2019-03-30 00:00:00 Completed [facility] Influenza Virus Vaccine Quad .5 mL IM 6+ MO 2019-03-30 00:00:00 Completed [facility] Influenza Virus Vaccine Quad .5 mL IM 6+ MO 2019-03-30 00:00:00 Completed [facility] Influenza Virus Vaccine Quad .5 mL IM 6+ MO 2019-03-30 00:00:00 Completed [facility] Influenza Virus Vaccine Quad .5 mL IM 6+ MO 2019-03-30 00:00:00 Completed [facility] Influenza Virus Vaccine Quad .5 mL IM 6+ MO 2019-03-30 00:00:00 Completed [facility] Influenza Virus Vaccine Quad .5 mL IM 6+ MO 2019-03-30 00:00:00 Completed [facility] Influenza Virus Vaccine Quad .5 mL IM 6+ MO 2019-03-30 00:00:00 Completed [facility] Influenza Virus Vaccine Quad .5 mL IM 6+ MO 2019-03-30 00:00:00 Completed [facility] Influenza Virus Vaccine Quad .5 mL IM 6+ MO 2019-03-30 00:00:00 Completed [facility] Influenza Virus Vaccine Quad .5 mL IM 6+ MO 2019-03-30 00:00:00 Completed [facility] Influenza Virus Vaccine Quad .5 mL IM 6+ MO 2019-03-30 00:00:00 Completed [facility] Influenza Virus Vaccine Quad .5 mL IM 6+ MO 2019-03-30 00:00:00 Completed [facility] Influenza Virus Vaccine Quad .5 mL IM 6+ MO 2019-03-30 00:00:00 Completed [facility] Influenza Virus Vaccine Quad .5 mL IM 6+ MO 2019-03-30 00:00:00 Completed [facility] TDAP 2018-12-01 00:00:00 Completed [facility] TDAP 2018-12-01 00:00:00 Completed [facility] TDAP 2018-12-01 00:00:00 Completed [facility] TDAP 2018-12-01 00:00:00 Completed [facility] TDAP 2018-12-01 00:00:00 Completed [facility] TDAP 2018-12-01 00:00:00 Completed [facility] TDAP 2018-12-01 00:00:00 Completed [facility] TDAP 2018-12-01 00:00:00 Completed [facility] TDAP 2018-12-01 00:00:00 Completed [facility] TDAP 2018-12-01 00:00:00 Completed [facility] TDAP 2018-12-01 00:00:00 Completed [facility] TDAP 2018-12-01 00:00:00 Completed [facility] TDAP 2018-12-01 00:00:00 Completed [facility] TDAP 2018-12-01 00:00:00 Completed [facility] TDAP 2018-12-01 00:00:00 Completed [facility] TDAP 2018-12-01 00:00:00 Completed [facility] TDAP 2018-12-01 00:00:00 Completed [facility] TDAP 2018-12-01 00:00:00 Completed [facility] TDAP 2018-12-01 00:00:00 Completed [facility] TDAP 2018-12-01 00:00:00 Completed [facility] TDAP 2018-12-01 00:00:00 Completed [facility] TDAP 2018-12-01 00:00:00 Completed [facility] TDAP 2018-12-01 00:00:00 Completed [facility] TDAP 2018-12-01 00:00:00 Completed [facility] TDAP 2018-12-01 00:00:00 Completed [facility] TDAP 2018-12-01 00:00:00 Completed [facility] Influenza Virus Vaccine Quad .5 mL IM 6+ MO 2017-01-30 00:00:00 Completed [facility] Influenza Virus Vaccine Quad .5 mL IM 6+ MO 2017-01-30 00:00:00 Completed [facility] Influenza Virus Vaccine Quad .5 mL IM 6+ MO 2017-01-30 00:00:00 Completed [facility] Influenza Virus Vaccine Quad .5 mL IM 6+ MO 2017-01-30 00:00:00 Completed [facility] Influenza Virus Vaccine Quad .5 mL IM 6+ MO 2017-01-30 00:00:00 Completed [facility] Influenza Virus Vaccine Quad .5 mL IM 6+ MO 2017-01-30 00:00:00 Completed [facility] Influenza Virus Vaccine Quad .5 mL IM 6+ MO 2017-01-30 00:00:00 Completed [facility] Influenza Virus Vaccine Quad .5 mL IM 6+ MO 2017-01-30 00:00:00 Completed [facility] Influenza Virus Vaccine Quad .5 mL IM 6+ MO 2017-01-30 00:00:00 Completed [facility] Influenza Virus Vaccine Quad .5 mL IM 6+ MO 2017-01-30 00:00:00 Completed [facility] Influenza Virus Vaccine Quad .5 mL IM 6+ MO 2017-01-30 00:00:00 Completed [facility] Influenza Virus Vaccine Quad .5 mL IM 6+ MO 2017-01-30 00:00:00 Completed [facility] Influenza Virus Vaccine Quad .5 mL IM 6+ MO 2017-01-30 00:00:00 Completed [facility] Meningococcal B, OMV 2016-09-26 00:00:00 Completed [facility] Meningococcal B, OMV 2016-09-26 00:00:00 Completed [facility] Meningococcal B, OMV 2016-09-26 00:00:00 Completed [facility] Meningococcal B, OMV 2016-09-26 00:00:00 Completed [facility] Meningococcal B, OMV 2016-09-26 00:00:00 Completed [facility] Meningococcal B, OMV 2016-09-26 00:00:00 Completed [facility] Meningococcal B, OMV 2016-09-26 00:00:00 Completed [facility] Meningococcal B, OMV 2016-09-26 00:00:00 Completed [facility] Meningococcal B, OMV 2016-09-26 00:00:00 Completed [facility] Meningococcal B, OMV 2016-09-26 00:00:00 Completed [facility] Meningococcal B, OMV 2016-09-26 00:00:00 Completed [facility] Meningococcal B, OMV 2016-09-26 00:00:00 Completed [facility] Meningococcal B, OMV 2016-09-26 00:00:00 Completed [facility] Meningococcal B, OMV 2016-06-06 00:00:00 Completed [facility] Meningococcal B, OMV 2016-06-06 00:00:00 Completed [facility] Meningococcal B, OMV 2016-06-06 00:00:00 Completed [facility] Meningococcal B, OMV 2016-06-06 00:00:00 Completed [facility] Meningococcal B, OMV 2016-06-06 00:00:00 Completed [facility] Meningococcal B, OMV 2016-06-06 00:00:00 Completed [facility] Meningococcal B, OMV 2016-06-06 00:00:00 Completed [facility] Meningococcal B, OMV 2016-06-06 00:00:00 Completed [facility] Meningococcal B, OMV 2016-06-06 00:00:00 Completed [facility] Meningococcal B, OMV 2016-06-06 00:00:00 Completed [facility] Meningococcal B, OMV 2016-06-06 00:00:00 Completed [facility] Meningococcal B, OMV 2016-06-06 00:00:00 Completed [facility] Meningococcal B, V 2016-06-06 00:00:00 Completed [facility] Influenza Virus Vaccine - Whole 2016-02-07 00:00:00 Completed [facility] Meningococcal Polysaccharide (groups A, C, Y and W-135) conjugate vaccine (MCV4P) 2016-02-07 00:00:00 Completed [facility] Meningococcal B, OMV 2016-02-07 00:00:00 Completed [facility] Influenza Virus Vaccine - Whole 2016-02-07 00:00:00 Completed [facility] Meningococcal Polysaccharide (groups A, C, Y and W-135) conjugate vaccine (MCV4P) 2016-02-07 00:00:00 Completed [facility] Meningococcal B, OMV 2016-02-07 00:00:00 Completed [facility] Influenza Virus Vaccine - Whole 2016-02-07 00:00:00 Completed [facility] Meningococcal Polysaccharide (groups A, C, Y and W-135) conjugate vaccine (MCV4P) 2016-02-07 00:00:00 Completed [facility] Meningococcal B, OMV 2016-02-07 00:00:00 Completed [facility] Influenza Virus Vaccine - Whole 2016-02-07 00:00:00 Completed [facility] Meningococcal Polysaccharide (groups A, C, Y and W-135) conjugate vaccine (MCV4P) 2016-02-07 00:00:00 Completed [facility] Meningococcal B, OMV 2016-02-07 00:00:00 Completed [facility] Influenza Virus Vaccine - Whole 2016-02-07 00:00:00 Completed [facility] Meningococcal Polysaccharide (groups A, C, Y and W-135) conjugate vaccine (MCV4P) 2016-02-07 00:00:00 Completed [facility] Meningococcal B, OMV 2016-02-07 00:00:00 Completed [facility] Influenza Virus Vaccine - Whole 2016-02-07 00:00:00 Completed [facility] Meningococcal Polysaccharide (groups A, C, Y and W-135) conjugate vaccine (MCV4P) 2016-02-07 00:00:00 Completed [facility] Meningococcal B, OMV 2016-02-07 00:00:00 Completed [facility] Influenza Virus Vaccine - Whole 2016-02-07 00:00:00 Completed [facility] Meningococcal Polysaccharide (groups A, C, Y and W-135) conjugate vaccine (MCV4P) 2016-02-07 00:00:00 Completed [facility] Meningococcal B, OMV 2016-02-07 00:00:00 Completed [facility] Influenza Virus Vaccine - Whole 2016-02-07 00:00:00 Completed [facility] Meningococcal Polysaccharide (groups A, C, Y and W-135) conjugate vaccine (MCV4P) 2016-02-07 00:00:00 Completed [facility] Meningococcal B, OMV 2016-02-07 00:00:00 Completed [facility] Influenza Virus Vaccine - Whole 2016-02-07 00:00:00 Completed [facility] Meningococcal Polysaccharide (groups A, C, Y and W-135) conjugate vaccine (MCV4P) 2016-02-07 00:00:00 Completed [facility] Meningococcal B, OMV 2016-02-07 00:00:00 Completed [facility] Influenza Virus Vaccine - Whole 2016-02-07 00:00:00 Completed [facility] Meningococcal Polysaccharide (groups A, C, Y and W-135) conjugate vaccine (MCV4P) 2016-02-07 00:00:00 Completed [facility] Meningococcal B, OMV 2016-02-07 00:00:00 Completed [facility] Influenza Virus Vaccine - Whole 2016-02-07 00:00:00 Completed [facility] Meningococcal Polysaccharide (groups A, C, Y and W-135) conjugate vaccine (MCV4P) 2016-02-07 00:00:00 Completed [facility] Meningococcal B, OMV 2016-02-07 00:00:00 Completed [facility] Influenza Virus Vaccine - Whole 2016-02-07 00:00:00 Completed [facility] Meningococcal Polysaccharide (groups A, C, Y and W-135) conjugate vaccine (MCV4P) 2016-02-07 00:00:00 Completed [facility] Meningococcal B, OMV 2016-02-07 00:00:00 Completed [facility] Influenza Virus Vaccine - Whole 2016-02-07 00:00:00 Completed [facility] Meningococcal Polysaccharide (groups A, C, Y and W-135) conjugate vaccine (MCV4P) 2016-02-07 00:00:00 Completed [facility] Meningococcal B, OMV 2016-02-07 00:00:00 Completed [facility] Influenza Virus Vaccine - Whole 2015-03-16 00:00:00 Completed [facility] Influenza Virus Vaccine - Whole 2015-03-16 00:00:00 Completed [facility] Influenza Virus Vaccine - Whole 2015-03-16 00:00:00 Completed [facility] Influenza Virus Vaccine - Whole 2015-03-16 00:00:00 Completed [facility] Influenza Virus Vaccine - Whole 2015-03-16 00:00:00 Completed [facility] Influenza Virus Vaccine - Whole 2015-03-16 00:00:00 Completed [facility] Influenza Virus Vaccine - Whole 2015-03-16 00:00:00 Completed [facility] Influenza Virus Vaccine - Whole 2015-03-16 00:00:00 Completed [facility] Influenza Virus Vaccine - Whole 2015-03-16 00:00:00 Completed [facility] Influenza Virus Vaccine - Whole 2015-03-16 00:00:00 Completed [facility] Influenza Virus Vaccine - Whole 2015-03-16 00:00:00 Completed [facility] Influenza Virus Vaccine - Whole 2015-03-16 00:00:00 Completed [facility] Influenza Virus Vaccine - Whole 2015-03-16 00:00:00 Completed [facility] HPV 2013-07-12 00:00:00 Completed [facility] HPV 2013-07-12 00:00:00 Completed [facility] HPV 2013-07-12 00:00:00 Completed [facility] HPV 2013-07-12 00:00:00 Completed [facility] HPV 2013-07-12 00:00:00 Completed [facility] HPV 2013-07-12 00:00:00 Completed [facility] HPV 2013-07-12 00:00:00 Completed [facility] HPV 2013-07-12 00:00:00 Completed [facility] HPV 2013-07-12 00:00:00 Completed [facility] HPV 2013-07-12 00:00:00 Completed [facility] HPV 2013-07-12 00:00:00 Completed [facility] HPV 2013-07-12 00:00:00 Completed [facility] HPV 2013-07-12 00:00:00 Completed [facility] Influenza Virus Vaccine - Whole 2013-02-08 00:00:00 Completed [facility] HPV 2013-02-08 00:00:00 Completed [facility] Influenza Virus Vaccine - Whole 2013-02-08 00:00:00 Completed [facility] HPV 2013-02-08 00:00:00 Completed [facility] Influenza Virus Vaccine - Whole 2013-02-08 00:00:00 Completed [facility] HPV 2013-02-08 00:00:00 Completed [facility] Influenza Virus Vaccine - Whole 2013-02-08 00:00:00 Completed [facility] HPV 2013-02-08 00:00:00 Completed [facility] Influenza Virus Vaccine - Whole 2013-02-08 00:00:00 Completed [facility] HPV 2013-02-08 00:00:00 Completed [facility] Influenza Virus Vaccine - Whole 2013-02-08 00:00:00 Completed [facility] HPV 2013-02-08 00:00:00 Completed [facility] Influenza Virus Vaccine - Whole 2013-02-08 00:00:00 Completed [facility] HPV 2013-02-08 00:00:00 Completed [facility] Influenza Virus Vaccine - Whole 2013-02-08 00:00:00 Completed [facility] HPV 2013-02-08 00:00:00 Completed [facility] Influenza Virus Vaccine - Whole 2013-02-08 00:00:00 Completed [facility] HPV 2013-02-08 00:00:00 Completed [facility] Influenza Virus Vaccine - Whole 2013-02-08 00:00:00 Completed [facility] HPV 2013-02-08 00:00:00 Completed [facility] Influenza Virus Vaccine - Whole 2013-02-08 00:00:00 Completed [facility] HPV 2013-02-08 00:00:00 Completed [facility] Influenza Virus Vaccine - Whole 2013-02-08 00:00:00 Completed [facility] HPV 2013-02-08 00:00:00 Completed [facility] Influenza Virus Vaccine - Whole 2013-02-08 00:00:00 Completed [facility] HPV 2013-02-08 00:00:00 Completed [facility] HPV 2012-07-20 00:00:00 Completed [facility] HPV 2012-07-20 00:00:00 Completed [facility] HPV 2012-07-20 00:00:00 Completed [facility] HPV 2012-07-20 00:00:00 Completed [facility] HPV 2012-07-20 00:00:00 Completed [facility] HPV 2012-07-20 00:00:00 Completed [facility] HPV 2012-07-20 00:00:00 Completed [facility] HPV 2012-07-20 00:00:00 Completed [facility] HPV 2012-07-20 00:00:00 Completed [facility] HPV 2012-07-20 00:00:00 Completed [facility] HPV 2012-07-20 00:00:00 Completed [facility] HPV 2012-07-20 00:00:00 Completed [facility] HPV 2012-07-20 00:00:00 Completed [facility] Influenza Virus Vaccine - Whole 2011-02-16 00:00:00 Completed [facility] Meningococcal Polysaccharide (groups A, C, Y and W-135) conjugate vaccine (MCV4P) 2011-02-16 00:00:00 Completed [facility] TDAP 2011-02-16 00:00:00 Completed [facility] Influenza Virus Vaccine - Whole 2011-02-16 00:00:00 Completed [facility] Meningococcal Polysaccharide (groups A, C, Y and W-135) conjugate vaccine (MCV4P) 2011-02-16 00:00:00 Completed [facility] TDAP 2011-02-16 00:00:00 Completed [facility] Influenza Virus Vaccine - Whole 2011-02-16 00:00:00 Completed [facility] Meningococcal Polysaccharide (groups A, C, Y and W-135) conjugate vaccine (MCV4P) 2011-02-16 00:00:00 Completed [facility] TDAP 2011-02-16 00:00:00 Completed [facility] Influenza Virus Vaccine - Whole 2011-02-16 00:00:00 Completed [facility] Meningococcal Polysaccharide (groups A, C, Y and W-135) conjugate vaccine (MCV4P) 2011-02-16 00:00:00 Completed [facility] TDAP 2011-02-16 00:00:00 Completed [facility] Influenza Virus Vaccine - Whole 2011-02-16 00:00:00 Completed [facility] Meningococcal Polysaccharide (groups A, C, Y and W-135) conjugate vaccine (MCV4P) 2011-02-16 00:00:00 Completed [facility] TDAP 2011-02-16 00:00:00 Completed [facility] Influenza Virus Vaccine - Whole 2011-02-16 00:00:00 Completed [facility] Meningococcal Polysaccharide (groups A, C, Y and W-135) conjugate vaccine (MCV4P) 2011-02-16 00:00:00 Completed [facility] TDAP 2011-02-16 00:00:00 Completed [facility] Influenza Virus Vaccine - Whole 2011-02-16 00:00:00 Completed [facility] Meningococcal Polysaccharide (groups A, C, Y and W-135) conjugate vaccine (MCV4P) 2011-02-16 00:00:00 Completed [facility] TDAP 2011-02-16 00:00:00 Completed [facility] Influenza Virus Vaccine - Whole 2011-02-16 00:00:00 Completed [facility] Meningococcal Polysaccharide (groups A, C, Y and W-135) conjugate vaccine (MCV4P) 2011-02-16 00:00:00 Completed [facility] TDAP 2011-02-16 00:00:00 Completed [facility] Influenza Virus Vaccine - Whole 2011-02-16 00:00:00 Completed [facility] Meningococcal Polysaccharide (groups A, C, Y and W-135) conjugate vaccine (MCV4P) 2011-02-16 00:00:00 Completed [facility] TDAP 2011-02-16 00:00:00 Completed [facility] Influenza Virus Vaccine - Whole 2011-02-16 00:00:00 Completed [facility] Meningococcal Polysaccharide (groups A, C, Y and W-135) conjugate vaccine (MCV4P) 2011-02-16 00:00:00 Completed [facility] TDAP 2011-02-16 00:00:00 Completed [facility] Influenza Virus Vaccine - Whole 2011-02-16 00:00:00 Completed [facility] Meningococcal Polysaccharide (groups A, C, Y and W-135) conjugate vaccine (MCV4P) 2011-02-16 00:00:00 Completed [facility] TDAP 2011-02-16 00:00:00 Completed [facility] Influenza Virus Vaccine - Whole 2011-02-16 00:00:00 Completed [facility] Meningococcal Polysaccharide (groups A, C, Y and W-135) conjugate vaccine (MCV4P) 2011-02-16 00:00:00 Completed [facility] TDAP 2011-02-16 00:00:00 Completed [facility] Influenza Virus Vaccine - Whole 2011-02-16 00:00:00 Completed [facility] Meningococcal Polysaccharide (groups A, C, Y and W-135) conjugate vaccine (MCV4P) 2011-02-16 00:00:00 Completed [facility] TDAP 2011-02-16 00:00:00 Completed [facility] Influenza Virus Vaccine - Whole 2010-06-13 00:00:00 Completed [facility] Influenza Virus Vaccine - Whole 2010-06-13 00:00:00 Completed [facility] Influenza Virus Vaccine - Whole 2010-06-13 00:00:00 Completed [facility] Influenza Virus Vaccine - Whole 2010-06-13 00:00:00 Completed [facility] Influenza Virus Vaccine - Whole 2010-06-13 00:00:00 Completed [facility] Influenza Virus Vaccine - Whole 2010-06-13 00:00:00 Completed [facility] Influenza Virus Vaccine - Whole 2010-06-13 00:00:00 Completed [facility] Influenza Virus Vaccine - Whole 2010-06-13 00:00:00 Completed [facility] Influenza Virus Vaccine - Whole 2010-06-13 00:00:00 Completed [facility] Influenza Virus Vaccine - Whole 2010-06-13 00:00:00 Completed [facility] Influenza Virus Vaccine - Whole 2010-06-13 00:00:00 Completed [facility] Influenza Virus Vaccine - Whole 2010-06-13 00:00:00 Completed [facility] Influenza Virus Vaccine - Whole 2010-06-13 00:00:00 Completed [facility] Influenza Virus Vaccine Nasal 2009-02-22 00:00:00 Completed [facility] Influenza Virus Vaccine Nasal 2009-02-22 00:00:00 Completed [facility] Influenza Virus Vaccine Nasal 2009-02-22 00:00:00 Completed [facility] Influenza Virus Vaccine Nasal 2009-02-22 00:00:00 Completed [facility] Influenza Virus Vaccine Nasal 2009-02-22 00:00:00 Completed [facility] Influenza Virus Vaccine Nasal 2009-02-22 00:00:00 Completed [facility] Influenza Virus Vaccine Nasal 2009-02-22 00:00:00 Completed [facility] Influenza Virus Vaccine Nasal 2009-02-22 00:00:00 Completed [facility] Influenza Virus Vaccine Nasal 2009-02-22 00:00:00 Completed [facility] Influenza Virus Vaccine Nasal 2009-02-22 00:00:00 Completed [facility] Influenza Virus Vaccine Nasal 2009-02-22 00:00:00 Completed [facility] Influenza Virus Vaccine Nasal 2009-02-22 00:00:00 Completed [facility] Influenza Virus Vaccine Nasal 2009-02-22 00:00:00 Completed [facility] Varicella (varivax)(chicken pox) 2006-10-03 00:00:00 Completed [facility] Varicella (varivax)(chicken pox) 2006-10-03 00:00:00 Completed [facility] Varicella (varivax)(chicken pox) 2006-10-03 00:00:00 Completed [facility] Varicella (varivax)(chicken pox) 2006-10-03 00:00:00 Completed [facility] Varicella (varivax)(chicken pox) 2006-10-03 00:00:00 Completed [facility] Varicella (varivax)(chicken pox) 2006-10-03 00:00:00 Completed [facility] Varicella (varivax)(chicken pox) 2006-10-03 00:00:00 Completed [facility] Varicella (varivax)(chicken pox) 2006-10-03 00:00:00 Completed [facility] Varicella (varivax)(chicken pox) 2006-10-03 00:00:00 Completed [facility] Varicella (varivax)(chicken pox) 2006-10-03 00:00:00 Completed [facility] Varicella (varivax)(chicken pox) 2006-10-03 00:00:00 Completed [facility] Varicella (varivax)(chicken pox) 2006-10-03 00:00:00 Completed [facility] Varicella (varivax)(chicken pox) 2006-10-03 00:00:00 Completed [facility] MMR 2004-02-24 00:00:00 Completed [facility] IPV 2004-02-24 00:00:00 Completed [facility] MMR 2004-02-24 00:00:00 Completed [facility] IPV 2004-02-24 00:00:00 Completed [facility] MMR 2004-02-24 00:00:00 Completed [facility] IPV 2004-02-24 00:00:00 Completed [facility] MMR 2004-02-24 00:00:00 Completed [facility] IPV 2004-02-24 00:00:00 Completed [facility] MMR 2004-02-24 00:00:00 Completed [facility] IPV 2004-02-24 00:00:00 Completed [facility] MMR 2004-02-24 00:00:00 Completed [facility] IPV 2004-02-24 00:00:00 Completed [facility] MMR 2004-02-24 00:00:00 Completed [facility] IPV 2004-02-24 00:00:00 Completed [facility] MMR 2004-02-24 00:00:00 Completed [facility] IPV 2004-02-24 00:00:00 Completed [facility] MMR 2004-02-24 00:00:00 Completed [facility] IPV 2004-02-24 00:00:00 Completed [facility] MMR 2004-02-24 00:00:00 Completed [facility] IPV 2004-02-24 00:00:00 Completed [facility] MMR 2004-02-24 00:00:00 Completed [facility] IPV 2004-02-24 00:00:00 Completed [facility] MMR 2004-02-24 00:00:00 Completed [facility] IPV 2004-02-24 00:00:00 Completed [facility] MMR 2004-02-24 00:00:00 Completed [facility] IPV 2004-02-24 00:00:00 Completed [facility] HEPATITIS A 2003-06-15 00:00:00 Completed [facility] HEPATITIS A 2003-06-15 00:00:00 Completed [facility] HEPATITIS A 2003-06-15 00:00:00 Completed [facility] HEPATITIS A 2003-06-15 00:00:00 Completed [facility] HEPATITIS A 2003-06-15 00:00:00 Completed [facility] HEPATITIS A 2003-06-15 00:00:00 Completed [facility] HEPATITIS A 2003-06-15 00:00:00 Completed [facility] HEPATITIS A 2003-06-15 00:00:00 Completed [facility] HEPATITIS A 2003-06-15 00:00:00 Completed [facility] HEPATITIS A 2003-06-15 00:00:00 Completed [facility] HEPATITIS A 2003-06-15 00:00:00 Completed [facility] HEPATITIS A 2003-06-15 00:00:00 Completed [facility] HEPATITIS A 2003-06-15 00:00:00 Completed [facility] HEPATITIS A 2002-09-28 00:00:00 Completed [facility] HEPATITIS A 2002-09-28 00:00:00 Completed [facility] HEPATITIS A 2002-09-28 00:00:00 Completed [facility] HEPATITIS A 2002-09-28 00:00:00 Completed [facility] HEPATITIS A 2002-09-28 00:00:00 Completed [facility] HEPATITIS A 2002-09-28 00:00:00 Completed [facility] HEPATITIS A 2002-09-28 00:00:00 Completed [facility] HEPATITIS A 2002-09-28 00:00:00 Completed [facility] [facility] 2002-09-28 00:00:00 Completed [facility] HEPATITIS A 2002-09-28 00:00:00 Completed [facility] HEPATITIS A 2002-09-28 00:00:00 Completed [facility] HEPATITIS A 2002-09-28 00:00:00 Completed [facility] HEPATITIS A 2002-09-28 00:00:00 Completed [facility] HIB 4 Dose Schedule 2001-01-22 00:00:00 Completed [facility] MMR 2001-01-22 00:00:00 Completed [facility] IPV 2001-01-22 00:00:00 Completed [facility] Varicella (varivax)(chicken pox) 2001-01-22 00:00:00 Completed [facility] HIB 4 Dose Schedule 2001-01-22 00:00:00 Completed [facility] MMR 2001-01-22 00:00:00 Completed [facility] IPV 2001-01-22 00:00:00 Completed [facility] Varicella (varivax)(chicken pox) 2001-01-22 00:00:00 Completed [facility] HIB 4 Dose Schedule 2001-01-22 00:00:00 Completed [facility] MMR 2001-01-22 00:00:00 Completed [facility] IPV 2001-01-22 00:00:00 Completed [facility] Varicella (varivax)(chicken pox) 2001-01-22 00:00:00 Completed [facility] HIB 4 Dose Schedule 2001-01-22 00:00:00 Completed [facility] MMR 2001-01-22 00:00:00 Completed [facility] IPV 2001-01-22 00:00:00 Completed [facility] Varicella (varivax)(chicken pox) 2001-01-22 00:00:00 Completed [facility] HIB 4 Dose Schedule 2001-01-22 00:00:00 Completed [facility] MMR 2001-01-22 00:00:00 Completed [facility] IPV 2001-01-22 00:00:00 Completed [facility] Varicella (varivax)(chicken pox) 2001-01-22 00:00:00 Completed [facility] HIB 4 Dose Schedule 2001-01-22 00:00:00 Completed [facility] MMR 2001-01-22 00:00:00 Completed [facility] IPV 2001-01-22 00:00:00 Completed [facility] Varicella (varivax)(chicken pox) 2001-01-22 00:00:00 Completed [facility] HIB 4 Dose Schedule 2001-01-22 00:00:00 Completed [facility] MMR 2001-01-22 00:00:00 Completed [facility] IPV 2001-01-22 00:00:00 Completed [facility] Varicella (varivax)(chicken pox) 2001-01-22 00:00:00 Completed [facility] HIB 4 Dose Schedule 2001-01-22 00:00:00 Completed [facility] MMR 2001-01-22 00:00:00 Completed [facility] IPV 2001-01-22 00:00:00 Completed [facility] Varicella (varivax)(chicken pox) 2001-01-22 00:00:00 Completed [facility] HIB 4 Dose Schedule 2001-01-22 00:00:00 Completed [facility] MMR 2001-01-22 00:00:00 Completed [facility] IPV 2001-01-22 00:00:00 Completed [facility] Varicella (varivax)(chicken pox) 2001-01-22 00:00:00 Completed [facility] HIB 4 Dose Schedule 2001-01-22 00:00:00 Completed [facility] MMR 2001-01-22 00:00:00 Completed [facility] IPV 2001-01-22 00:00:00 Completed [facility] Varicella (varivax)(chicken pox) 2001-01-22 00:00:00 Completed [facility] HIB 4 Dose Schedule 2001-01-22 00:00:00 Completed [facility] MMR 2001-01-22 00:00:00 Completed [facility] IPV 2001-01-22 00:00:00 Completed [facility] Varicella (varivax)(chicken pox) 2001-01-22 00:00:00 Completed [facility] HIB 4 Dose Schedule 2001-01-22 00:00:00 Completed [facility] MMR 2001-01-22 00:00:00 Completed [facility] IPV 2001-01-22 00:00:00 Completed [facility] Varicella (varivax)(chicken pox) 2001-01-22 00:00:00 Completed [facility] HIB 4 Dose Schedule 2001-01-22 00:00:00 Completed [facility] MMR 2001-01-22 00:00:00 Completed [facility] IPV 2001-01-22 00:00:00 Completed [facility] Varicella (varivax)(chicken pox) 2001-01-22 00:00:00 Completed [facility] Hep B, Adol or Pedi Dosage 2000 00:00:00 Completed [facility] HIB 4 Dose Schedule 2000 00:00:00 Completed [facility] Hep B, Adol or Pedi Dosage 2000 00:00:00 Completed [facility] HIB 4 Dose Schedule 2000 00:00:00 Completed [facility] Hep B, Adol or Pedi Dosage 2000 00:00:00 Completed [facility] HIB 4 Dose Schedule 2000 00:00:00 Completed [facility] Hep B, Adol or Pedi Dosage 2000 00:00:00 Completed [facility] HIB 4 Dose Schedule 2000 00:00:00 Completed [facility] Hep B, Adol or Pedi Dosage 2000 00:00:00 Completed [facility] HIB 4 Dose Schedule 2000 00:00:00 Completed [facility] Hep B, Adol or Pedi Dosage 2000 00:00:00 Completed [facility] HIB 4 Dose Schedule 2000 00:00:00 Completed [facility] Hep B, Adol or Pedi Dosage 2000 00:00:00 Completed [facility] HIB 4 Dose Schedule 2000 00:00:00 Completed [facility] Hep B, Adol or Pedi Dosage 2000 00:00:00 Completed [facility] HIB 4 Dose Schedule 2000 00:00:00 Completed [facility] Hep B, Adol or Pedi Dosage 2000 00:00:00 Completed [facility] HIB 4 Dose Schedule 2000 00:00:00 Completed [facility] Hep B, Adol or Pedi Dosage 2000 00:00:00 Completed [facility] HIB 4 Dose Schedule 2000 00:00:00 Completed [facility] Hep B, Adol or Pedi Dosage 2000 00:00:00 Completed [facility] HIB 4 Dose Schedule 2000 00:00:00 Completed [facility] Hep B, Adol or Pedi Dosage 2000 00:00:00 Completed [facility] HIB 4 Dose Schedule 2000 00:00:00 Completed [facility] Hep B, Adol or Pedi Dosage 2000 00:00:00 Completed [facility] HIB 4 Dose Schedule 2000 00:00:00 Completed [facility] HIB 4 Dose Schedule 2000 00:00:00 Completed [facility] IPV 2000 00:00:00 Completed [facility] HIB 4 Dose Schedule 2000 00:00:00 Completed [facility] IPV 2000 00:00:00 Completed [facility] HIB 4 Dose Schedule 2000 00:00:00 Completed [facility] IPV 2000 00:00:00 Completed [facility] HIB 4 Dose Schedule 2000 00:00:00 Completed [facility] IPV 2000 00:00:00 Completed [facility] HIB 4 Dose Schedule 2000 00:00:00 Completed [facility] IPV 2000 00:00:00 Completed [facility] HIB 4 Dose Schedule 2000 00:00:00 Completed [facility] IPV 2000 00:00:00 Completed [facility] HIB 4 Dose Schedule 2000 00:00:00 Completed [facility] IPV 2000 00:00:00 Completed [facility] HIB 4 Dose Schedule 2000 00:00:00 Completed [facility] IPV 2000 00:00:00 Completed [facility] HIB 4 Dose Schedule 2000 00:00:00 Completed [facility] IPV 2000 00:00:00 Completed [facility] HIB 4 Dose Schedule 2000 00:00:00 Completed [facility] IPV 2000 00:00:00 Completed [facility] HIB 4 Dose Schedule 2000 00:00:00 Completed [facility] IPV 2000 00:00:00 Completed [facility] HIB 4 Dose Schedule 2000 00:00:00 Completed [facility] IPV 2000 00:00:00 Completed [facility] HIB 4 Dose Schedule 2000 00:00:00 Completed [facility] IPV 2000 00:00:00 Completed [facility] Hep B, Adol or Pedi Dosage 2000 00:00:00 Completed [facility] HIB 4 Dose Schedule 2000 00:00:00 Completed [facility] IPV 2000 00:00:00 Completed [facility] Hep B, Adol or Pedi Dosage 2000 00:00:00 Completed [facility] HIB 4 Dose Schedule 2000 00:00:00 Completed [facility] IPV 2000 00:00:00 Completed [facility] Hep B, Adol or Pedi Dosage 2000 00:00:00 Completed [facility] HIB 4 Dose Schedule 2000 00:00:00 Completed [facility] IPV 2000 00:00:00 Completed [facility] Hep B, Adol or Pedi Dosage 2000 00:00:00 Completed [facility] HIB 4 Dose Schedule 2000 00:00:00 Completed [facility] IPV 2000 00:00:00 Completed [facility] Hep B, Adol or Pedi Dosage 2000 00:00:00 Completed [facility] HIB 4 Dose Schedule 2000 00:00:00 Completed [facility] IPV 2000 00:00:00 Completed [facility] Hep B, Adol or Pedi Dosage 2000 00:00:00 Completed [facility] HIB 4 Dose Schedule 2000 00:00:00 Completed [facility] IPV 2000 00:00:00 Completed [facility] Hep B, Adol or Pedi Dosage 2000 00:00:00 Completed [facility] HIB 4 Dose Schedule 2000 00:00:00 Completed [facility] IPV 2000 00:00:00 Completed [facility] Hep B, Adol or Pedi Dosage 2000 00:00:00 Completed [facility] HIB 4 Dose Schedule 2000 00:00:00 Completed [facility] IPV 2000 00:00:00 Completed [facility] Hep B, Adol or Pedi Dosage 2000 00:00:00 Completed [facility] HIB 4 Dose Schedule 2000 00:00:00 Completed [facility] IPV 2000 00:00:00 Completed [facility] Hep B, Adol or Pedi Dosage 2000 00:00:00 Completed [facility] HIB 4 Dose Schedule 2000 00:00:00 Completed [facility] IPV 2000 00:00:00 Completed [facility] Hep B, Adol or Pedi Dosage 2000 00:00:00 Completed [facility] HIB 4 Dose Schedule 2000 00:00:00 Completed [facility] IPV 2000 00:00:00 Completed [facility] Hep B, Adol or Pedi Dosage 2000 00:00:00 Completed [facility] HIB 4 Dose Schedule 2000 00:00:00 Completed [facility] IPV 2000 00:00:00 Completed [facility] Hep B, Adol or Pedi Dosage 2000 00:00:00 Completed [facility] HIB 4 Dose Schedule 2000 00:00:00 Completed [facility] IPV 2000 00:00:00 Completed [facility] Hep B, Adol or Pedi Dosage 2000 00:00:00 Completed [facility] Hep B, Adol or Pedi Dosage 2000 00:00:00 Completed [facility] Hep B, Adol or Pedi Dosage 2000 00:00:00 Completed [facility] Hep B, Adol or Pedi Dosage 2000 00:00:00 Completed [facility] Hep B, Adol or Pedi Dosage 2000 00:00:00 Completed [facility] Hep B, Adol or Pedi Dosage 2000 00:00:00 Completed [facility] Hep B, Adol or Pedi Dosage 2000 00:00:00 Completed [facility] Hep B, Adol or Pedi Dosage 2000 00:00:00 Completed [facility] Hep B, Adol or Pedi Dosage 2000 00:00:00 Completed [facility] Hep B, Adol or Pedi Dosage 2000 00:00:00 Completed [facility] Hep B, Adol or Pedi Dosage 2000 00:00:00 Completed [facility] Hep B, Adol or Pedi Dosage 2000 00:00:00 Completed [facility] Hep B, Adol or Pedi Dosage 2000 00:00:00 Completed [facility] Influenza Virus Vaccine Quad .5 mL IM 6+ MO (FLUZONE/FLULAVAL/FL UARIX) Unknown Completed [facility] Influenza Virus Vaccine Quad IM, Preserv and ABX Free 6 MO-64 YRS (FLUCELVAX) Unknown Completed [facility] TDAP Unknown Completed [facility] Influenza Virus Vaccine Quad .5 mL IM 6+ MO (FLUZONE/FLULAVAL/FL UARIX) Unknown Completed [facility] Influenza Virus Vaccine - Whole Unknown Completed [facility] Influenza Virus Vaccine - Whole Unknown Completed [facility] Influenza Virus Vaccine - Whole Unknown Completed [facility] Influenza Virus Vaccine - Whole Unknown Completed [facility] Influenza Virus Vaccine - Whole Unknown Completed [facility] Influenza Virus Vaccine Nasal Unknown Completed [facility] HEPATITIS A Unknown Completed [facility] HEPATITIS A Unknown Completed [facility] Hep B, Adol or Pedi Dosage Unknown Completed [facility] Hep B, Adol or Pedi Dosage Unknown Completed [facility] Hep B, Adol or Pedi Dosage Unknown Completed [facility] HIB 4 Dose Schedule Unknown Completed [facility] HIB 4 Dose Schedule Unknown Completed [facility] HIB 4 Dose Schedule Unknown Completed [facility] HIB 4 Dose Schedule Unknown Completed [facility] HPV Unknown Completed [facility] HPV Unknown Completed [facility] HPV Unknown Completed [facility] Meningococcal Polysaccharide (groups A, C, Y and W-135) conjugate vaccine (MCV4P) Unknown Completed [facility] Meningococcal Polysaccharide (groups A, C, Y and W-135) conjugate vaccine (MCV4P) Unknown Completed [facility] Meningococcal B, OMV Unknown Completed [facility] Meningococcal B, OMV Unknown Completed [facility] Meningococcal B, OMV Unknown Completed [facility] MMR Unknown Completed [facility] MMR Unknown Completed [facility] IPV Unknown Completed [facility] IPV Unknown Completed [facility] IPV Unknown Completed [facility] IPV Unknown Completed [facility] TDAP Unknown Completed [facility] Varicella (varivax)(chicken pox) Unknown Completed [facility] Varicella (varivax)(chicken pox) Unknown Completed [facility] TDAP Unknown Completed [facility] Influenza Virus Vaccine Quad .5 mL IM 6+ MO (FLUZONE/FLULAVAL/FL UARIX) Unknown Completed [facility] Influenza Virus Vaccine Quad .5 mL IM 6+ MO (FLUZONE/FLULAVAL/FL UARIX) Unknown Completed [facility] Influenza Virus Vaccine Quad IM, Preserv and ABX Free 6 MO-64 YRS (FLUCELVAX) Unknown Completed [facility] TDAP Unknown Completed [facility] Influenza Virus Vaccine Quad .5 mL IM 6+ MO (FLUZONE/FLULAVAL/FL UARIX) Unknown Completed [facility] Influenza Virus Vaccine - Whole Unknown Completed [facility] Influenza Virus Vaccine - Whole Unknown Completed [facility] Influenza Virus Vaccine - Whole Unknown Completed [facility] Influenza Virus Vaccine - Whole Unknown Completed [facility] Influenza Virus Vaccine - Whole Unknown Completed [facility] Influenza Virus Vaccine Nasal Unknown Completed [facility] HEPATITIS A Unknown Completed [facility] HEPATITIS A Unknown Completed [facility] Hep B, Adol or Pedi Dosage Unknown Completed [facility] Hep B, Adol or Pedi Dosage Unknown Completed [facility] Hep B, Adol or Pedi Dosage Unknown Completed [facility] HIB 4 Dose Schedule Unknown Completed [facility] HIB 4 Dose Schedule Unknown Completed [facility] HIB 4 Dose Schedule Unknown Completed [facility] HIB 4 Dose Schedule Unknown Completed [facility] HPV Unknown Completed [facility] HPV Unknown Completed [facility] HPV Unknown Completed [facility] Meningococcal Polysaccharide (groups A, C, Y and W-135) conjugate vaccine (MCV4P) Unknown Completed [facility] Meningococcal Polysaccharide (groups A, C, Y and W-135) conjugate vaccine (MCV4P) Unknown Completed [facility] Meningococcal B, OMV Unknown Completed [facility] Meningococcal B, OMV Unknown Completed [facility] Meningococcal B, OMV Unknown Completed [facility] MMR Unknown Completed [facility] MMR Unknown Completed [facility] IPV Unknown Completed [facility] IPV Unknown Completed [facility] IPV Unknown Completed [facility] IPV Unknown Completed [facility] TDAP Unknown Completed [facility] Varicella (varivax)(chicken pox) Unknown Completed [facility] Varicella (varivax)(chicken pox) Unknown Completed [facility] TDAP Unknown Completed [facility] Influenza Virus Vaccine Quad .5 mL IM 6+ MO (FLUZONE/FLULAVAL/FL UARIX) Unknown Completed [facility] Influenza Virus Vaccine Quad .5 mL IM 6+ MO (FLUZONE/FLULAVAL/FL UARIX) Unknown Completed [facility] Influenza Virus Vaccine Quad IM, Preserv and ABX Free 6 MO-64 YRS (FLUCELVAX) Unknown Completed [facility] TDAP Unknown Completed [facility] Influenza Virus Vaccine Quad .5 mL IM 6+ MO (FLUZONE/FLULAVAL/FL UARIX) Unknown Completed [facility] Influenza Virus Vaccine - Whole Unknown Completed [facility] Influenza Virus Vaccine - Whole Unknown Completed [facility] Influenza Virus Vaccine - Whole Unknown Completed [facility] Influenza Virus Vaccine - Whole Unknown Completed [facility] Influenza Virus Vaccine - Whole Unknown Completed [facility] Influenza Virus Vaccine Nasal Unknown Completed [facility] HEPATITIS A Unknown Completed [facility] HEPATITIS A Unknown Completed [facility] Hep B, Adol or Pedi Dosage Unknown Completed [facility] Hep B, Adol or Pedi Dosage Unknown Completed [facility] Hep B, Adol or Pedi Dosage Unknown Completed [facility] HIB 4 Dose Schedule Unknown Completed [facility] HIB 4 Dose Schedule Unknown Completed [facility] HIB 4 Dose Schedule Unknown Completed [facility] HIB 4 Dose Schedule Unknown Completed [facility] HPV Unknown Completed [facility] HPV Unknown Completed [facility] HPV Unknown Completed [facility] Meningococcal Polysaccharide (groups A, C, Y and W-135) conjugate vaccine (MCV4P) Unknown Completed [facility] Meningococcal Polysaccharide (groups A, C, Y and W-135) conjugate vaccine (MCV4P) Unknown Completed [facility] Meningococcal B, OMV Unknown Completed [facility] Meningococcal B, OMV Unknown Completed [facility] Meningococcal B, OMV Unknown Completed [facility] MMR Unknown Completed [facility] MMR Unknown Completed [facility] IPV Unknown Completed [facility] IPV Unknown Completed [facility] IPV Unknown Completed [facility] IPV Unknown Completed [facility] TDAP Unknown Completed [facility] Varicella (varivax)(chicken pox) Unknown Completed [facility] Varicella (varivax)(chicken pox) Unknown Completed [facility] TDAP Unknown Completed [facility] Influenza Virus Vaccine Quad .5 mL IM 6+ MO (FLUZONE/FLULAVAL/FL UARIX) Unknown Completed [facility] Influenza Virus Vaccine Quad .5 mL IM 6+ MO (FLUZONE/FLULAVAL/FL UARIX) Unknown Completed [facility] Influenza Virus Vaccine Quad IM, Preserv and ABX Free 6 MO-64 YRS (FLUCELVAX) Unknown Completed [facility] Influenza Virus Vaccine Quad .5 mL IM 6+ MO (FLUZONE/FLULAVAL/FL UARIX) Unknown Completed [facility] Influenza Virus Vaccine - Whole Unknown Completed [facility] Influenza Virus Vaccine - Whole Unknown Completed [facility] Influenza Virus Vaccine - Whole Unknown Completed [facility] Influenza Virus Vaccine - Whole Unknown Completed [facility] Influenza Virus Vaccine - Whole Unknown Completed [facility] Influenza Virus Vaccine Nasal Unknown Completed [facility] HEPATITIS A Unknown Completed [facility] HEPATITIS A Unknown Completed [facility] Hep B, Adol or Pedi Dosage Unknown Completed [facility] Hep B, Adol or Pedi Dosage Unknown Completed [facility] Hep B, Adol or Pedi Dosage Unknown Completed [facility] HIB 4 Dose Schedule Unknown Completed [facility] HIB 4 Dose Schedule Unknown Completed [facility] HIB 4 Dose Schedule Unknown Completed [facility] HIB 4 Dose Schedule Unknown Completed [facility] HPV Unknown Completed [facility] HPV Unknown Completed [facility] HPV Unknown Completed [facility] Meningococcal Polysaccharide (groups A, C, Y and W-135) conjugate vaccine (MCV4P) Unknown Completed [facility] Meningococcal Polysaccharide (groups A, C, Y and W-135) conjugate vaccine (MCV4P) Unknown Completed [facility] Meningococcal B, OMV Unknown Completed [facility] Meningococcal B, OMV Unknown Completed [facility] Meningococcal B, OMV Unknown Completed [facility] MMR Unknown Completed [facility] MMR Unknown Completed [facility] IPV Unknown Completed [facility] IPV Unknown Completed [facility] IPV Unknown Completed [facility] IPV Unknown Completed [facility] TDAP Unknown Completed [facility] Varicella (varivax)(chicken pox) Unknown Completed [facility] Varicella (varivax)(chicken pox) Unknown Completed [facility] TDAP Unknown Completed [facility] Influenza Virus Vaccine Quad .5 mL IM 6+ MO (FLUZONE/FLULAVAL/FL UARIX) Unknown Completed [facility] Influenza Virus Vaccine Quad .5 mL IM 6+ MO (FLUZONE/FLULAVAL/FL UARIX) Unknown Completed [facility] Influenza Virus Vaccine Quad IM, Preserv and ABX Free 6 MO-64 YRS (FLUCELVAX) Unknown Completed [facility] Influenza Virus Vaccine Quad .5 mL IM 6+ MO (FLUZONE/FLULAVAL/FL UARIX) Unknown Completed [facility] Influenza Virus Vaccine - Whole Unknown Completed [facility] Influenza Virus Vaccine - Whole Unknown Completed [facility] Influenza Virus Vaccine - Whole Unknown Completed [facility] Influenza Virus Vaccine - Whole Unknown Completed [facility] Influenza Virus Vaccine - Whole Unknown Completed [facility] Influenza Virus Vaccine Nasal Unknown Completed [facility] HEPATITIS A Unknown Completed [facility] HEPATITIS A Unknown Completed [facility] Hep B, Adol or Pedi Dosage Unknown Completed [facility] Hep B, Adol or Pedi Dosage Unknown Completed [facility] Hep B, Adol or Pedi Dosage Unknown Completed [facility] HIB 4 Dose Schedule Unknown Completed [facility] HIB 4 Dose Schedule Unknown Completed [facility] HIB 4 Dose Schedule Unknown Completed [facility] HIB 4 Dose Schedule Unknown Completed [facility] HPV Unknown Completed [facility] HPV Unknown Completed [facility] HPV Unknown Completed [facility] Meningococcal Polysaccharide (groups A, C, Y and W-135) conjugate vaccine (MCV4P) Unknown Completed [facility] Meningococcal Polysaccharide (groups A, C, Y and W-135) conjugate vaccine (MCV4P) Unknown Completed [facility] Meningococcal B, OMV Unknown Completed [facility] Meningococcal B, OMV Unknown Completed [facility] Meningococcal B, OMV Unknown Completed [facility] MMR Unknown Completed [facility] MMR Unknown Completed [facility] IPV Unknown Completed [facility] IPV Unknown Completed [facility] IPV Unknown Completed [facility] IPV Unknown Completed [facility] TDAP Unknown Completed [facility] Varicella (varivax)(chicken pox) Unknown Completed [facility] Varicella (varivax)(chicken pox) Unknown Completed [facility] TDAP Unknown Completed [facility] Influenza Virus Vaccine Quad .5 mL IM 6+ MO (FLUZONE/FLULAVAL/FL UARIX) Unknown Completed [facility] Vital Signs Vital Name Observation Time Observation Value Comments S ource Systolic blood pressure 2022-08-28 18:49:00 127 mm[Hg] [facility] Diastolic blood pressure 2022-08-28 18:49:00 87 mm[Hg] [facility] Heart rate 2022-08-28 18:49:00 77 /min [facility] Body temperature 2022-08-28 18:49:00 36.06 [facility] Respiratory rate 2022-08-28 18:49:00 17 /min [facility] Body weight 2022-08-28 18:49:00 82.555 kg [facility] BMI 2022-08-28 18:49:00 33.28 kg/m2 [facility] Systolic blood pressure 2022-08-22 21:39:00 137 mm[Hg] [facility] Diastolic blood pressure 2022-08-22 21:39:00 87 mm[Hg] [facility] Heart rate 2022-08-22 21:39:00 63 /min [facility] Body temperature 2022-08-22 21:39:00 36.78 Zuly [facility] Respiratory rate 2022-08-22 21:39:00 18 /min [facility] Oxygen saturation in Arterial blood by Pulse oximetry 2022-08-22 21:39:00 99 /min [facility] Body height 2022-08-21 00:19:00 157.5 cm [facility] Body weight 2022-08-21 00:19:00 90.402 kg [facility] BMI 2022-08-21 00:19:00 36.44 kg/m2 [facility] Systolic blood pressure 2022-08-20 20:22:00 149 mm[Hg] [facility] Diastolic blood pressure 2022-08-20 20:22:00 90 mm[Hg] [facility] Heart rate 2022-08-20 20:21:00 75 /min [facility] Body temperature 2022-08-20 20:21:00 36.22 Zuly [facility] Respiratory rate 2022-08-20 20:21:00 17 /min [facility] Body height 2022-08-20 20:21:00 157.5 cm [facility] Body weight 2022-08-20 20:21:00 90.538 kg [facility] BMI 2022-08-20 20:21:00 36.51 kg/m2 [facility] Systolic blood pressure 2022-07-30 18:02:00 133 mm[Hg] [facility] Diastolic blood pressure 2022-07-30 18:02:00 78 mm[Hg] [facility] Heart rate 2022-07-30 18:02:00 81 /min [facility] Body temperature 2022-07-30 18:02:00 36.44 Zuly [facility] Respiratory rate 2022-07-30 18:02:00 18 /min [facility] Body height 2022-07-30 18:02:00 157.5 cm [facility] Body weight 2022-07-30 18:02:00 88.996 kg [facility] BMI 2022-07-30 18:02:00 35.89 kg/m2 [facility] Systolic blood pressure 2022-07-03 15:36:00 124 mm[Hg] [facility] Diastolic blood pressure 2022-07-03 15:36:00 84 mm[Hg] [facility] Heart rate 2022-07-03 15:36:00 80 /min [facility] Body temperature 2022-07-03 15:36:00 35.83 Zuly [facility] Respiratory rate 2022-07-03 15:36:00 18 /min [facility] Body height 2022-07-03 15:36:00 157.5 cm [facility] Body weight 2022-07-03 15:36:00 86.365 kg [facility] BMI 2022-07-03 15:36:00 34.82 kg/m2 [facility] Systolic blood pressure 2022-06-18 19:39:00 115 mm[Hg] [facility] Diastolic blood pressure 2022-06-18 19:39:00 68 mm[Hg] [facility] Heart rate 2022-06-18 19:39:00 78 /min [facility] Body temperature 2022-06-18 19:39:00 36.28 Zuly [facility] Respiratory rate 2022-06-18 19:39:00 16 /min [facility] Body height 2022-06-18 19:39:00 157.5 cm [facility] Body weight 2022-06-18 19:39:00 86.138 kg [facility] BMI 2022-06-18 19:39:00 34.73 kg/m2 [facility] Systolic blood pressure 2022-03-22 14:14:00 125 mm[Hg] [facility] Diastolic blood pressure 2022-03-22 14:14:00 74 mm[Hg] [facility] Heart rate 2022-03-22 14:14:00 75 /min [facility] Body temperature 2022-03-22 14:14:00 36.28 Zuly [facility] Respiratory rate 2022-03-22 14:14:00 18 /min [facility] Body weight 2022-03-22 14:14:00 85.049 kg [facility] BMI 2022-03-22 14:14:00 34.29 kg/m2 [facility] Procedures Procedure Date / Time Performed Performing Clinician Source CBC WITH DIFF 2022-08-22 09:36:00 Jayne Goff Mai [facility] VENOUS CORD GAS 2022-08-21 10:05:00 Ly, [facility] CENTRAL NEURAXIAL BLOCK 2022-08-21 04:41:00 Imelda Gonzalez [facility] SGOT (ASPARTATE AMINO TRANSFER) 2022-08-21 01:47:00 Ly, [facility] CREATININE 2022-08-21 01:47:00 Ly, [facility] ALANINE AMINO TRANSFERASE(SGPT 2022-08-21 01:47:00 Ly, [facility] LACTATE DEHYDROGENASE 2022-08-21 01:47:00 Ly, [facility] URIC ACID 2022-08-21 01:47:00 Ly, [facility] CBC WITH DIFF 2022-08-21 01:47:00 Ly, [facility] URINALYSIS 2022-08-21 01:47:00 Ly, [facility] HEPATITIS B SURFACE ANTIGEN 2022-08-21 01:47:00 Ly, [facility] HB ABO GROUPING 2022-08-21 01:47:00 Ly, [facility] RHO (D) IMMUNE GLOBULIN 2022-08-21 01:47:00 Jill Salguero Mai [facility] PROTEIN CREAT RATIO URINE RANDOM 2022-08-21 01:47:00 Ly, [facility] SYPHILIS IGG/IGM 2022-08-21 01:47:00 Ly, [facility] COVID-19 (ID NOW RAPID TESTING) 2022-08-21 00:30:00 Guille [facility] LAB ONLY COVID INTERPRETATION 2022-08-21 00:30:00 Savanna Han [facility] GALV ONLY - INFLUENZA A B RSV PCR 2022-08-20 20:24:00 Ly, Teresa [facility] POCT URINALYSIS 2022-08-20 00:00:00 Gay Coe [facility] CBC WITH DIFF 2022-07-30 18:50:00 Merly Gardner [facility] POCT URINALYSIS 2022-07-30 18:02:00 aGy Coe [facility] ASSIGNMENT OF BENEFITS 2022-07-30 17:42:37 Docto r Unassigned, [place] [facility] POCT URINALYSIS 2022-07-03 15:39:00 Gay Coe [facility] CBC WITH DIFF 2022-06-18 20:07:00 Merly Gardner [facility] HIV 1/2 AG-AB WITH REFLEX 2022-06-18 20:07:00 Merly Artis [facility] TDAP VACCINE, >11 YRS, IM 2022-06-18 19:58:57 Merly Artis [facility] POCT URINALYSIS 2022-06-18 00:00:00 Gay Coe [facility] POCT URINALYSIS 2022-03-22 14:15:00 Gay Coe [facility] Encounters Start Date/Time End Date/Time Encounter Type Admission Type Attending [facility] Facility Care Department Encounter ID Source 2022-12-24 15:00:00 2022-12-24 15:00:00 Outpatient MERLY ROMERO [facility] [id number] [facility] 2022-11-21 14:45:00 2022-11-21 14:45:00 Outpatient ROZINA DEE [facility] [id number] [facility] 2022-09-16 10:15:00 2022-09-16 10:15:00 Outpatient ROZINA DEE [facility] [id number] [facility] 2022-08-28 13:30:00 2022-08-28 14:01:39 [facility] 1.2.840.114 350.1.13.10 4.2.7.2.686 [id number] [facility] 2022-08-28 13:30:00 2022-08-28 13:30:00 Outpatient R ROZINA ONEILL [facility] [id number] [facility] 2022-08-23 00:00:00 2022-08-23 00:00:00 Telephone Rozina Oneill [facility] 1.2.840.114 350.1.13.10 4.2.7.2.686 [id number] [facility] 2022-08-23 00:00:00 2022-08-23 00:00:00 Patient Secure Msg Doctor Unassigned, [place] [facility] 1.2.840.114 350.1.13.10 4.2.7.2.686 [id number] [facility] 2022-08-23 00:00:00 2022-08-23 00:00:00 Patient Secure Msg Doctor Unassigned, [place] [facility] 1.2.840.114 350.1.13.10 4.2.7.2.686 [id number] [facility] 2022-08-20 19:09:00 2022-08-22 20:49:00 Hospital Encounter Turner Tinoco [facility] 1.2.840.114 350.1.13.10 4.2.7.2.686 [id number] [facility] 2022-08-20 22:35:00 2022-08-21 06:52:00 Anesthesia Event Oscar Gonzalez Brian [facility] 1.2.840.114 350.1.13.10 4.2.7.2.686 [id number] [facility] 2022-08-20 15:00:00 2022-08-20 15:48:28 Outpatient R MERLY GARDNER [facility] [id number] [facility] 2022-08-20 15:00:00 2022-08-20 15:48:28 Routine Visit Merly Gardner [facility] 1..840.114 350.1.13.10 4.2.7.2.686 [id number] [facility] 2022-08-20 15:00:00 2022-08-20 15:48:28 [facility] [id number] [facility] 2022-08-06 15:15:00 2022-08-06 15:15:00 Outpatient R ROZINA ONEILL [facility] [id number] [facility] 2022-08-03 00:00:00 2022-08-03 00:00:00 Patient Secure Msg Doctor Unassigned, [place] 395[address].840.114 350.1.13.10 4.2.7.2.686 [id number] [facility] 2022-07-30 12:45:00 2022-07-30 13:40:37 Outpatient R MERLY GARDNER [facility] [id number] [facility] 2022-07-30 12:45:00 2022-07-30 13:40:37 Routine Visit Provider, [facility]Rmchp [facility] 1..840.114 350.1.13.10 4.2.7.2.686 [id number] [facility] 2022-07-30 00:00:00 2022-07-30 00:00:00 Orders Only Doctor Unassigned, [place] [address].0.114 350.1.13.10 4.2.7.2.686 [id number] [facility] 2022-07-28 00:00:00 2022-07-28 00:00:00 Patient Secure Msg Doctor Unassigned, [place] [facility] 1.20.114 350.1.13.10 4.2.7.2.686 [id number] [facility] 2022-07-18 12:45:00 2022-07-18 12:45:00 Outpatient R MERLY GARDNER [facility] [id number] [facility] 2022-07-03 09:00:00 2022-07-03 10:12:46 Outpatient R ROZINA ONEILL [facility] [id number] [facility] 2022-07-03 09:00:00 2022-07-03 10:12:46 Routine Visit Rozina Oneill [facility] .840.114 350.1.13.10 4.2.7.2.686 [id number] 107 [id number] [facility] 2022-06-19 00:00:00 2022-06-19 00:00:00 Case Management Merly Gardner [facility] 1.840.114 350.1.13.10 4.2.7.2.686 [id number] [facility] 2022-06-18 13:30:00 2022-06-18 14:20:07 Outpatient R ROZINA ONEILL [facility] [id number] [facility] 2022-06-18 13:30:00 2022-06-18 14:20:07 Routine Visit Provider, JorgeRmchp Temp Rozina Oneill [facility] 1.840.114 350.1.13.10 4.2.7.2.686 [id number] [facility] 2022-05-29 08:45:00 2022-05-29 08:45:00 Outpatient R ROZINA ONEILL [facility] [id number] [facility] 2022-04-24 09:45:00 2022-04-24 09:45:00 Outpatient R ROZINA ONEILL [facility] [id number] [facility] 2022-04-18 00:00:00 2022-04-18 00:00:00 Abstract Rozina Oneill [facility] 1..840.114 350.1.13.10 4.2.7.2.686 [id number] [facility] 2022-04-17 08:00:00 2022-04-17 09:00:00 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 Visit Ultrasound, Merary James [facility] 1..840.114 350.1.13.10 4.2.7.2.686 [id number] [facility] 2022-04-17 08:00:00 2022-04-17 08:00:00 Outpatient MERARY RODGERS SANGEETA [facility] [id number] [facility] 2022-03-22 09:00:00 2022-03-22 10:02:01 Outpatient MERLY ROMEOR [facility] [id number] [facility] 2022-03-22 09:00:00 2022-03-22 10:02:01 Routine Visit Provider, Merly Brown [facility] 1..840.114 350.1.13.10 4.2.7.2.686 [id number] [facility] 2022-03-15 09:30:00 2022-03-15 09:30:00 Outpatient R MERLY GARDNER [facility] [id number] [facility] 2022-03-04 07:45:00 2022-03-04 07:45:00 Outpatient R GAY COE [facility] [id number] [facility] 2022-02-21 08:00:00 2022-02-21 08:30:00 Termite Helper Visit Ultrasound, Last Camacho [facility] 1..114 350.1.13.10 4.2.7.2.686 [id number] [facility] 2022-02-21 08:00:00 2022-02-21 08:00:00 Outpatient P ANGELICA LAST [facility] [id number] [facility] 2022-02-21 08:00:00 2022-02-21 08:00:00 Outpatient P [facility] [id number] [facility] 2022-02-21 00:00:00 2022-02-21 00:00:00 Abstract Clara Leung [facility]ILD [facility] 1..114 350.1.13.10 4.2.7.2.686 [id number] [facility] 2022-02-10 00:00:00 2022-02-10 00:00:00 Patient Secure Msg Doctor Unassigned, [place] [facility] 1..114 350.1.13.10 4.2.7.2.686 [id number] [facility] 2022-02-10 00:00:00 2022-02-10 00:00:00 Telephone Gay Coe [facility] 1.0.114 350.1.13.10 4.2.7.2.686 [id number] [facility] 2022-02-05 00:00:00 2022-02-05 00:00:00 Telephone Gay Coe [facility] 1..114 350.1.13.10 4.2.7.2.686 [id number] [facility] 2022-02-04 00:00:00 2022-02-04 00:00:00 Telephone Gay Coe [facility] 1..114 350.1.13.10 4.2.7.2.686 [id number] [facility] 2022-02-01 00:00:00 2022-02-01 00:00:00 [facility] 1..114 350.1.13.10 4.2.7.2.686 [id number] [facility] 2022-01-31 09:15:00 2022-01-31 09:48:42 Outpatient R GERMAINE COECHRISTINE [facility] [id number] [facility] 2022-01-31 09:15:00 2022-01-31 09:48:42 Outpatient R COEGAY [facility] [id number] [facility] 2022-01-31 09:15:00 2022-01-31 09:48:42 Initial Visit Germaine Coechristine [facility] CHILD [facility] 1..114 350.1.13.10 4.2.7.2.686 [id number] [facility] 2022-01-31 00:00:00 2022-01-31 00:00:00 Orders Only Doctor Unassigned, [place] [facility] 1.114 350.1.13.10 4.2.7.2.686 [id number] [facility] 2021-02-21 00:00:00 2021-02-21 00:00:00 Telephone Rozina Oneill [facility] 1.2.840.114 350.1.13.10 4.2.7.2.686 [id number] [facility] 2020-08-08 00:00:00 2020-08-08 00:00:00 Patient Outreach Luis Alfredo Max [facility] 1.2840.114 350.1.13.10 4.2.7.2.686 [id number] 2020-07-05 15:45:00 2020-07-05 15:45:00 Outpatient R ROZINA ONEILL [facility] [id number] [facility] 2020-06-29 00:00:00 2020-06-29 00:00:00 Orders Only Doctor Unassigned, [place] [facility] 1.2840.114 350.1.13.10 4.2.7.2.686 [id number] 2020-06-14 08:15:00 2020-06-14 08:15:00 Outpatient R [facility] [id number] [facility] 2020-06-07 14:57:16 2020-06-07 15:57:08 Initial Visit Rozina Oneill [facility] 1.2840.114 350.1.13.10 4.2.7.2.686 [id number] 2020-06-07 14:00:00 2020-06-07 14:00:00 Outpatient R ROZINA ONEILL [facility] [id number] [facility] 2020-06-07 00:00:00 2020-06-07 00:00:00 Orders Only Doctor Unassigned, [place] [facility] 1.2.840.114 350.1.13.10 4.2.7.2.686 [id number] 2019-05-03 00:00:00 2019-05-03 00:00:00 Patient Secure Msg Doctor Unassigned, [place] [facility] 1.2.840.114 350.1.13.10 4.2.7.2.686 [id number] 2019-02-04 10:51:35 2019-02-04 11:16:15 [facility] 1.2.840.114 350.1.13.10 4.2.7.2.686 [id number] 2019-01-26 11:12:01 2019-01-26 11:58:34 [facility] 1.2.840.114 350.1.13.10 4.2.7.2.686 [id number] Results Test Description Test Time Test Comments Results Result Co mments Source [facility] CORD [id number] 10:23:04* Test Item Value Reference Range Interpretation Comme nts VENOUS BASE EXCESS, CORD (test code = 1533974301) -0.3 mEq/L VENOUS PH, CORD (test code = 8209408672) 7.34 7.25-7.45 VENOUS PC02, CORD (test code = 2158549808) 50 See_Comment H [Automated me ssage] The system which generated this result transmitted reference range: 27 - 49 mmHg. The reference range was not used to interpret this result as normal/abnormal. VENOUS PO2, CORD (test code = 5740178040) 22 See_Comment [Automated me ssage] The system which generated this result transmitted reference range: 17 - 41 mmHg. The reference range was not used to interpret this result as normal/abnormal. VENOUS BICARBONATE, CORD (test code = 9078093042) 26 See_Comment [Automa kathryn message] The system which generated this result transmitted reference range: 12 - 29 mEq/L. The reference range was not used to interpret this result as normal/abnormal. Lab Interpretation (test code = 13323-7) [id number] 10:22:43* Test Item Value Reference Range Interpretation Comme nts BASE EXCESS, CORD (test code = 6522167820) -2.8 mEq/L QUES AC PH, CORD (BEAKER) (test code = 3938135073) 7.29 7.18-7.38 PC02, CORD (test code = 2300414525) 53 See_Comment [Automated messa ge] The system which generated this result transmitted reference range: 32 - 66 mmHg. The reference range was not used to interpret this result as normal/abnormal. PO2, CORD (test code = 0170530209) 21 See_Comment [Automated messa ge] The system which generated this result transmitted reference range: 10 - 30 mmHg. The reference range was not used to interpret this result as normal/abnormal. BICARBONATE, CORD (test code = 0938031757) 25 See_Comment [Automated messa ge] The system which generated this result transmitted reference range: 17 - 27 mEq/L. The reference range was not used to interpret this result as normal/abnormal. [facility]CIFIC [id number] 20:27:00* Test Item Value Reference Range Interpretation Comme nts POCT U SP GRAV (test code = 3255) . 1.005-1.025 POCT PH U (test code = 3254) 7 mg/dl 5-8 POCT U LEUK EST (test code = 3263) trace Negative - Negative POCT U NIT (test code = 3262) negative Negative - Negati ve POCT U PROT (test code = 3259) 3+ Negative - Negat felicitas POCT U GLU (test code = 3256) negative Negative - Negati ve POCT U KETONE (test code = 3258) negative Negative - Neg ative POCT U UROBILI (test code = 3260) . 0.2-1 POCT U BILI (test code = 3261) . Negative - Negat felicitas POCT U BLD (test code = 3257) trace Negative - Negati ve POCT U COLOR (test code = 3266) . POCT U APPEAR (test code = 3267) . [facility] WITH [id number] 05:55:15* Test Item Value Reference Range Interpretation Comme nts WBC (test code = 6690-2) 8.34 See_Comment [Automated [employer]] The system which generated this result transmitted reference range: 4.30 - 11.10 10*3/?L. The reference range was not used to interpret this result as normal/abnormal. RBC (test code = 789-8) 4.08 See_Comment [Automated [employer]] The system which generated this result transmitted reference range: 3.93 - 5.25 10*6/?L. The reference range was not used to interpret this result as normal/abnormal. HGB (test code = 718-7) 11.6 g/dL 11.6-15.0 HCT (test code = 4544-3) 35.8 % 35.7-45.2 MCV (test code = 787-2) 87.7 fL 80.6-95.5 MCH (test code = 785-6) 28.4 pg 25.9-32.8 MCHC (test code = 786-4) 32.4 g/dL 31.6-35.1 RDW-SD (test code = 36190-7) 41.6 fL 39.0-49.9 RDW-CV (test code = 788-0) 13.0 % 12.0-15.5 PLT (test code = 777-3) 275 See_Comment [Automated [employer] ge] The system which generated this result transmitted reference range: 166 - 358 10*3/?L. The reference range was not used to interpret this result as normal/abnormal. MPV (test code = 06630-0) 12.3 fL 9.5-12.9 IPF % (test code = 7286062578) 8.4 % 1.3-7.7 H Platelet count measured by fluorescence method. NRBC/100 WBC (test code = 2817303527) 0.0 See_Comment [Automated [facility] ssage] The system which generated this result transmitted reference range: 0.0 - 10.0 /100 WBCs. The reference range was not used to interpret this result as normal/abnormal. NRBC x10^3 (test code = 8065594289) See_Comment [Automated messa ge] The system which generated this result transmitted reference range: 10*3/?L. The reference range was not used to interpret this result as normal/abnormal. GRAN MAT (NEUT) % (test code = 770-8) 72.6 % IMM GRAN % (test code = 7664616493) 0.40 % LYMPH % (test code = 736-9) 20.7 % MONO % (test code = 5905-5) 5.3 % EOS % (test code = 713-8) 0.8 % BASO % (test code = 706-2) 0.2 % GRAN MAT x10^3(ANC) (test code = 0249802827) 6.05 10*3/uL 1.88-7.09 IMM GRAN x10^3 (test code = 3798434396) 0.03 10*3/uL 0.00-0.06 LYMPH x10^3 (test code = 731-0) 1.73 10*3/uL 1.32-3.29 MONO x10^3 (test code = 742-7) 0.44 10*3/uL 0.33-0.92 EOS x10^3 (test code = 711-2) 0.07 10*3/uL 0.03-0.39 BASO x10^3 (test code = 704-7) 0.01-0.07 Lab Interpretation (test code = 79935-7) Abnormal [facility] WITH [id number] 05:55:15* Test Item Value Reference Range Interpretation Comme nts WBC (test code = 6690-2) 8.34 See_Comment [Automated messa ge] The system which generated this result transmitted reference range: 4.30 - 11.10 10*3/?L. The reference range was not used to interpret this result as normal/abnormal. RBC (test code = 789-8) 4.08 See_Comment [Automated messa ge] The system which generated this result transmitted reference range: 3.93 - 5.25 10*6/?L. The reference range was not used to interpret this result as normal/abnormal. HGB (test code = 718-7) 11.6 g/dL 11.6-15.0 HCT (test code = 4544-3) 35.8 % 35.7-45.2 MCV (test code = 787-2) 87.7 fL 80.6-95.5 MCH (test code = 785-6) 28.4 pg 25.9-32.8 MCHC (test code = 786-4) 32.4 g/dL 31.6-35.1 RDW-SD (test code = 92176-6) 41.6 fL 39.0-49.9 RDW-CV (test code = 788-0) 13.0 % 12.0-15.5 PLT (test code = 777-3) 275 See_Comment [Automated [employer]] The system which generated this result transmitted reference range: 166 - 358 10*3/?L. The reference range was not used to interpret this result as normal/abnormal. MPV (test code = 87202-0) 12.3 fL 9.5-12.9 IPF % (test code = 9308628877) 8.4 % 1.3-7.7 H Platelet count measured by fluorescence method. NRBC/100 WBC (test code = 4124693439) 0.0 See_Comment [Automated [facility] ssage] The system which generated this result transmitted reference range: 0.0 - 10.0 /100 WBCs. The reference range was not used to interpret this result as normal/abnormal. NRBC x10^3 (test code = 8334720622) See_Comment [Automated [employer]] The system which generated this result transmitted reference range: 10*3/?L. The reference range was not used to interpret this result as normal/abnormal. GRAN MAT (NEUT) % (test code = 770-8) 72.6 % IMM GRAN % (test code = 1804238727) 0.40 % LYMPH % (test code = 736-9) 20.7 % MONO % (test code = 5905-5) 5.3 % EOS % (test code = 713-8) 0.8 % BASO % (test code = 706-2) 0.2 % GRAN MAT x10^3(ANC) (test code = 2987762990) 6.05 10*3/uL 1.88-7.09 IMM GRAN x10^3 (test code = 4724883022) 0.03 10*3/uL 0.00-0.06 LYMPH x10^3 (test code = 731-0) 1.73 10*3/uL 1.32-3.29 MONO x10^3 (test code = 742-7) 0.44 10*3/uL 0.33-0.92 EOS x10^3 (test code = 711-2) 0.07 10*3/uL 0.03-0.39 BASO x10^3 (test code = 704-7) 0.01-0.07 Lab Interpretation (test code = 20912-2) Abnormal [facility] URINALYSIS W SPECIFIC [id number] 18:02:00* Test Item Value Reference Range Interpretation Comme nts POCT U SP GRAV (test code = 3255) . 1.005-1.025 POCT PH U (test code = 3254) . 5-8 POCT U LEUK EST (test code = 3263) . Negative - N egative POCT U NIT (test code = 3262) . Negative - Negati ve POCT U PROT (test code = 3259) 3+ Negative - Negat felicitas POCT U GLU (test code = 3256) Neg Negative - Negati ve POCT U KETONE (test code = 3258) . Negative - Neg ative POCT U UROBILI (test code = 3260) . 0.2-1 POCT U BILI (test code = 3261) . Negative - Negat felicitas POCT U BLD (test code = 3257) . Negative - Negati ve POCT U COLOR (test code = 3266) . POCT U APPEAR (test code = 3267) . [facility] URINALYSIS W SPECIFIC [id number] 18:02:00* Test Item Value Reference Range Interpretation Comme nts POCT U SP GRAV (test code = 3255) . 1.005-1.025 POCT PH U (test code = 3254) . 5-8 POCT U LEUK EST (test code = 3263) . Negative - N egative POCT U NIT (test code = 3262) . Negative - Negati ve POCT U PROT (test code = 3259) 3+ Negative - Negat felicitas POCT U GLU (test code = 3256) Neg Negative - Negati ve POCT U KETONE (test code = 3258) . Negative - Neg ative POCT U UROBILI (test code = 3260) . 0.2-1 POCT U BILI (test code = 3261) . Negative - Negat felicitas POCT U BLD (test code = 3257) . Negative - Negati ve POCT U COLOR (test code = 3266) . POCT U APPEAR (test code = 3267) . [facility] URINALYSIS W SPECIFIC [id number] 15:39:00* Test Item Value Reference Range Interpretation Comme nts POCT U SP GRAV (test code = 3255) . 1.005-1.025 POCT PH U (test code = 3254) . 5-8 POCT U LEUK EST (test code = 3263) . Negative - N egative POCT U NIT (test code = 3262) . Negative - Negati ve POCT U PROT (test code = 3259) 3+ Negative - Negat felicitas POCT U GLU (test code = 3256) Neg Negative - Negati ve POCT U KETONE (test code = 3258) . Negative - Neg ative POCT U UROBILI (test code = 3260) . 0.2-1 POCT U BILI (test code = 3261) . Negative - Negat felicitas POCT U BLD (test code = 3257) . Negative - Negati ve POCT U COLOR (test code = 3266) POCT U APPEAR (test code = 3267) [facility] URINALYSIS W SPECIFIC [id number] 15:39:00* Test Item Value Reference Range Interpretation Comme nts POCT U SP GRAV (test code = 3255) . 1.005-1.025 POCT PH U (test code = 3254) . 5-8 POCT U LEUK EST (test code = 3263) . Negative - N egative POCT U NIT (test code = 3262) . Negative - Negati ve POCT U PROT (test code = 3259) 3+ Negative - Negat felicitas POCT U GLU (test code = 3256) Neg Negative - Negati ve POCT U KETONE (test code = 3258) . Negative - Neg ative POCT U UROBILI (test code = 3260) . 0.2-1 POCT U BILI (test code = 3261) . Negative - Negat felicitas POCT U BLD (test code = 3257) . Negative - Negati ve POCT U COLOR (test code = 3266) POCT U APPEAR (test code = 3267) [facility] URINALYSIS W SPECIFIC [id number] 15:39:00* Test Item Value Reference Range Interpretation Comme nts POCT U SP GRAV (test code = 3255) . 1.005-1.025 POCT PH U (test code = 3254) . 5-8 POCT U LEUK EST (test code = 3263) . Negative - N egative POCT U NIT (test code = 3262) . Negative - Negati ve POCT U PROT (test code = 3259) 3+ Negative - Negat felicitas POCT U GLU (test code = 3256) Neg Negative - Negati ve POCT U KETONE (test code = 3258) . Negative - Neg ative POCT U UROBILI (test code = 3260) . 0.2-1 POCT U BILI (test code = 3261) . Negative - Negat felicitas POCT U BLD (test code = 3257) . Negative - Negati ve POCT U COLOR (test code = 3266) POCT U APPEAR (test code = 3267) [facility] URINALYSIS W SPECIFIC [id number] 19:52:00* Test Item Value Reference Range Interpretation Comme nts POCT U SP GRAV (test code = 3255) . 1.005-1.025 POCT PH U (test code = 3254) 6 mg/dl 5-8 POCT U LEUK EST (test code = 3263) 2+ Negative - Negative POCT U NIT (test code = 3262) negative Negative - Negati ve POCT U PROT (test code = 3259) 2+ Negative - Negat felicitas POCT U GLU (test code = 3256) negative Negative - Negati ve POCT U KETONE (test code = 3258) negative Negative - Neg ative POCT U UROBILI (test code = 3260) . 0.2-1 POCT U BILI (test code = 3261) . Negative - Negat felicitas POCT U BLD (test code = 3257) 1+ Negative - Negati ve POCT U COLOR (test code = 3266) . POCT U APPEAR (test code = 3267) . [facility] URINALYSIS W SPECIFIC [id number] 14:15:00* Test Item Value Reference Range Interpretation Comme nts POCT U SP GRAV (test code = 3255) * 1.005-1.025 POCT PH U (test code = 3254) * 5-8 POCT U LEUK EST (test code = 3263) * Negative - Negative POCT U NIT (test code = 3262) * Negative - Negati ve POCT U PROT (test code = 3259) trace Negative - Negat felicitas POCT U GLU (test code = 3256) negative Negative - Negati ve POCT U KETONE (test code = 3258) * Negative - Neg ative POCT U UROBILI (test code = 3260) * 0.2-1 POCT U BILI (test code = 3261) * Negative - Negat felicitas POCT U BLD (test code = 3257) * Negative - Negati ve POCT U COLOR (test code = 3266) POCT U APPEAR (test code = 3267) [facility] URINALYSIS W SPECIFIC [id number] 14:15:00* Test Item Value Reference Range Interpretation Comme nts POCT U SP GRAV (test code = 3255) * 1.005-1.025 POCT PH U (test code = 3254) * 5-8 POCT U LEUK EST (test code = 3263) * Negative - Negative POCT U NIT (test code = 3262) * Negative - Negati ve POCT U PROT (test code = 3259) trace Negative - Negat felicitas POCT U GLU (test code = 3256) negative Negative - Negati ve POCT U KETONE (test code = 3258) * Negative - Neg ative POCT U UROBILI (test code = 3260) * 0.2-1 POCT U BILI (test code = 3261) * Negative - Negat felicitas POCT U BLD (test code = 3257) * Negative - Negati ve POCT U COLOR (test code = 3266) POCT U APPEAR (test code = 3267) [facility]
--- NOTE | 2023-09-15 07:11 | EDPHYS ---
Physician Documentation [facility] Name: Maria L Foreman Age: 23 yrs Sex: Female : 2000 Arrival Date: 09/15/2023 Time: 06:58 Bed IW1 Private MD: ED Physician Dev Selby HPI: 09/14 07:10 This 23 yrs old Female presents to ER via Ambulatory with complaints of Facial rn Swelling, Toothache. 07:10 The patient presents with pain, swelling. Onset: The symptoms/episode began/occurred rn last night. Modifying factors: The symptoms are alleviated by nothing, the symptoms are aggravated by chewing. Associated signs and symptoms: Pertinent positives: pain, swelling. Severity of symptoms: At their worst the symptoms were mild, in the emergency department the symptoms are unchanged. The patient has not experienced similar symptoms in the past. 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 - Infectious Disease History:: Denies. - Social history:: Smoking status: Patient denies any tobacco usage or history of. - Family history:: not pertinent. - Hospitalizations: : No recent hospitalization is reported. ROS: 07:10 Constitutional: Negative for fever, chills, and weight loss, ENT: + for dental pain and rn left cheek swelling Exam: 07:10 Constitutional: This is a well developed, well nourished patient who is awake, alert, rn and in no acute distress. Eyes: Periorbital areas with no swelling, redness, or edema. ENT: Positive dental caries left upper teeth. No evidence of dental abscess. Mild swelling of left buccal mucosa without fluctuance or abscess Vital Signs: 07:07 BP 137 / 98; Pulse 98; Resp 16; Pulse Ox 100% on R/A; iw MDM: 07:01 Patient medically screened. rn 07:10 Differential diagnosis: dental caries, dental abscess. Data reviewed: vital signs, rn nurses notes, and as a result, I will discharge patient. Counseling: I had a detailed discussion with the patient and/or guardian regarding the historical points, exam findings, and any diagnostic results supporting the discharge/admit diagnosis, the need for outpatient follow up, to return to the emergency department if symptoms worsen or persist or if there are any questions or concerns that arise at home. Special discussion: I discussed with the patient/guardian in detail that at this point there is no indication for admission to the hospital. It is understood, however, that if the symptoms persist or worsen the patient needs to return immediately for re-evaluation. ED course: Has dentist appointment in 4 days.. 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
--- NOTE | 2023-09-15 07:11 | ER ---
Nurse's Notes [facility] Name: Maria L Foreman Age: 23 yrs Sex: Female : 2000 Arrival Date: 09/15/2023 Time: 06:58 Bed IW1 Private MD: Diagnosis: Dental caries, unspecified;Cellulitis of face Presentation: 09/14 07:07 Chief complaint: Patient states: left sided facial swelling, tooth pain since last iw night, has dental appt next Friday. Coronavirus screen: At this time, the client does not indicate any symptoms associated with coronavirus-19. Ebola Screen: Patient negative for fever greater than or equal to 101.5 degrees Fahrenheit, and additional compatible Ebola Virus Disease symptoms Patient denies exposure to infectious person. Patient denies travel to an Ebola-affected area in the 21 days before illness onset. No symptoms or risks identified at this time. Initial Sepsis Screen: Does the patient meet any 2 criteria? No. Patient's initial sepsis screen is negative. Does the patient have a suspected source of infection? No. Patient's initial sepsis screen is negative. Risk Assessment: Do you want to hurt yourself or someone else? Patient reports no desire to harm self or others. Onset of symptoms was September 15, 2023. 07:07 Method Of Arrival: Ambulatory iw 07:07 Acuity: LEV 4 iw Triage Assessment: 07:08 General: Appears in no apparent distress. Behavior is calm, cooperative. Pain: iw Complains of pain in face. EENT: Reports pain in left cheek. 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 - Infectious Disease History:: Denies. - Social history:: Smoking status: Patient denies any tobacco usage or history of. - Family history:: not pertinent. - Hospitalizations: : No recent hospitalization is reported. Screenin:17 [facility] ED Fall Risk Assessment (Adult) History of falling in the last 3 months, iw including since admission No falls in past 3 months (0 pts) Confusion or Disorientation No (0 pts) Intoxicated or Sedated No (0 pts) Impaired Gait No (0 pts) Mobility Assist Device Used No (0 pt) Altered Elimination No (0 pt) Score/Fall Risk Level 0 - 2 = Low Risk. Abuse screen: Denies threats or abuse. Denies injuries from another. Nutritional screening: No deficits noted. Tuberculosis screening: No symptoms or risk factors identified. Assessment: 07:10 General: Appears in no apparent distress. comfortable, Behavior is calm, cooperative. iw Pain: Complains of pain in left cheek. Neuro: Level of Consciousness is awake, alert, obeys commands, Oriented to person, place, time, situation, Moves all extremities. Full function. Cardiovascular: Patient's skin is warm and dry. Respiratory: Respiratory effort is even, unlabored, Respiratory pattern is regular. GI: Abdomen is non-distended. Derm: Skin is intact, is healthy with good turgor. Musculoskeletal: Range of motion: intact in all extremities. Vital Signs: 07:07 BP 137 / 98; Pulse 98; Resp 16; Pulse Ox 100% on R/A; iw ED Course: 07:00 Patient arrived in ED. rg4 07:01 Dev eSlby MD is Attending Physician. rn 07:08 Triage completed. iw 07:08 Arm band placed on. iw 07:09 Odette Cabral RN is Primary Nurse. iw 07:10 Patient has correct armband on for positive identification. Provided Education on: HIV iw Consent. 07:17 No provider procedures requiring assistance completed. Patient did not have IV access iw during this emergency room visit. Administered Medications: No medications were administered Medication: 07:10 VIS not applicable for this client. iw Outcome: 07:10 Discharge ordered by . rn 07:17 Discharged to home ambulatory, iw 07:17 Condition: good 07:17 Discharge instructions given to patient, Instructed on discharge instructions, follow up and referral plans. medication usage, Demonstrated understanding of instructions, follow-up care, medications, Prescriptions given X 1, 07:18 Patient left the ED. iw Signatures: Odette Cabral RN RN iw Dev Selby MD MD rn Garcia, Rubi rg4
[2023-09-15 07:28] VITALS: BP 137/98; O2SAT 100
== END 2023-09-15 07:18 | disposition home or self-care (01) ==
LOC: ER 06:58
DX: K02.9 Dental caries, unspecified (principal); L03.211 Cellulitis of face
CPT/HCPCS: 99283

== ENCOUNTER 2024-04-23 08:11 | Emergency (ER) | payer SELFPAY ==
[2024-04-23] MEDS ORDERED: ONDANSETRON 4 MG (ODT) TAB ONE (08:42)
[2024-04-23 09:13] LABS: Urine Bacteria 20-50 /HPF (<20); Urine Bilirubin NEGATIVE (Negative); Urine Blood 2+ (Negative); Urine Clarity Extremely Turbid (Clear); Urine Color Yellow (Yellow); Urine Culture Reflex Order NOT NEEDED; Urine Glucose NEGATIVE (Negative); Urine Granular Casts 0-5 /LPF (None Seen); Urine Ketones NEGATIVE (Negative); Urine Microscopic Reflex YN ORDER UMIC; Urine Mucus 2+ /HPF (None Seen); Urine Nitrite NEGATIVE (Negative); Urine Protein 1+ (Negative); Urine Urobilinogen 1+ (Normal); Urine WBC <5 /HPF (<5)
[2024-04-23] MEDS ORDERED: IBUPROFEN 200 MG TAB PO ONE (09:28)
[2024-04-23] MEDS ORDERED: ACETAMINOPHEN 325 MG TABLET ONE (09:28)
[2024-04-23 09:30] LABS: SARS-CoV-2 Antigen CONTROL BLUE LINE VIS/BG OK; SARS-CoV-2 Antigen Rapid Res Negative (Negative)
--- NOTE | 2024-04-23 09:54 | EDPHYS ---
Physician Documentation [facility] Name: Maria L Foreman Age: 24 yrs Sex: Female : 2000 Arrival Date: 04/23/2024 Time: 08:11 Bed 20 Private MD: ED Physician Ehsan Angel HPI: 04/23 09:48 This 24 yrs old Female presents to ER via Ambulatory with complaints of yovani Nausea/Vomiting, Sore Throat, Fever. 09:48 The patient presents to the emergency department with nausea, vomiting, that is yovani intermittent. Onset: The symptoms/episode began/occurred 3 day(s) ago. Possible causes: unknown, sick contacts, strep. The symptoms are aggravated by movement, food , The symptoms are alleviated by remaining still. Associated signs and symptoms: Pertinent positives: fever, nausea, vomiting. Severity of symptoms: At their worst the symptoms were moderate in the emergency department the symptoms are unchanged. The patient has experienced similar episodes in the past, a few times. Historical: - Allergies: 08:25 No Known Allergies; ss - Home Meds: 08:25 None [Active]; ss - PMHx: 08:25 None; ss - PSHx: 08:25 None; ss - Immunization history:: Client reports receiving the 2nd dose of the Covid vaccine. - Infectious Disease History:: Denies. - Social history:: Smoking status: Patient denies any tobacco usage or history of. ROS: 09:49 Eyes: Negative for injury, pain, redness, and discharge, Neck: Negative for injury, yovani pain, and swelling, Cardiovascular: Negative for chest pain, palpitations, and edema, Respiratory: Negative for shortness of breath, cough, wheezing, and pleuritic chest pain, Abdomen/GI: Negative for abdominal pain, nausea, vomiting, diarrhea, and constipation, Back: Negative for injury and pain, : Negative for injury, bleeding, discharge, and swelling, MS/Extremity: Negative for injury and deformity, Skin: Negative for injury, rash, and discoloration, Neuro: Negative for headache, weakness, numbness, tingling, and seizure, Psych: Negative for depression, anxiety, suicide ideation, homicidal ideation, and hallucinations, Allergy/Immunology: Negative for hives, rash, and allergies, Endocrine: Negative for neck swelling, polydipsia, polyuria, polyphagia, and marked weight changes, Hematologic/Lymphatic: Negative for swollen nodes, abnormal bleeding, and unusual bruising, 09:49 Constitutional: Positive for body aches, chills, fatigue, fever, malaise, poor PO intake, 09:49 ENT: Positive for rhinorrhea, sinus congestion, sore throat, :49 Respiratory: Positive for cough, Exam: 09:49 Constitutional: This is a well developed, well nourished patient who is awake, alert, yovani and in no acute distress. Head/Face: Normocephalic, atraumatic. Eyes: Pupils equal round and reactive to light, extra-ocular motions intact. Lids and lashes normal. Conjunctiva and sclera are non-icteric and not injected. Cornea within normal limits. Periorbital areas with no swelling, redness, or edema. Neck: Trachea midline, no thyromegaly or masses palpated, and no cervical lymphadenopathy. Supple, full range of motion without nuchal rigidity, or vertebral point tenderness. No Meningismus. Chest/axilla: Normal chest wall appearance and motion. Nontender with no deformity. No lesions are appreciated. Respiratory: Lungs have equal breath sounds bilaterally, clear to auscultation and percussion. No rales, rhonchi or wheezes noted. No increased work of breathing, no retractions or nasal flaring. Abdomen/GI: Soft, non-tender, with normal bowel sounds. No distension or tympany. No guarding or rebound. No evidence of tenderness throughout. Back: No spinal tenderness. No costovertebral tenderness. Full range of motion. Skin: Warm, dry with normal turgor. Normal color with no rashes, no lesions, and no evidence of cellulitis. MS/ Extremity: Pulses equal, no cyanosis. Neurovascular intact. Full, normal range of motion., bilateral aka Neuro: Awake and alert, GCS 15, oriented to person, place, time, and situation. Cranial nerves II-XII grossly intact. Motor strength 5/5 in all extremities. Sensory grossly intact. Cerebellar exam normal. Normal gait. Psych: Awake, alert, with orientation to person, place and time. Behavior, mood, and affect are within normal limits. 09:49 ENT: Posterior pharynx: Airway: normal, no evidence of obstruction, Tonsils: bilaterally enlarged, with erythema, with exudate, Uvula: normal, midline, non-edematous, no erythema, swelling, is not appreciated, erythema, is not appreciated, exudate, is not appreciated, peritonsillar mass, is not appreciated, pooling of secretions, is not appreciated, Vital Signs: 08:24 BP 117 / 79; Pulse 128; Resp 15; Temp 98.9(O); Pulse Ox 97% on R/A; Weight 83.91 kg; ss Height 5 ft. 2 in. ; Pain 8/10; 10:43 BP 104 / 76; Pulse 107; Resp 20; Pulse Ox 99% ; bp 08:24 Body Mass Index 33.84 (83.91 kg, 157.48 cm) 08:24 Pain Scale: Adult ss MDM: 08:23 Medical Screening Exam initiated [facility] 09:51 Differential diagnosis: Nonspecific abd pain, gastritis, viral gastroenteritis, yovani gastroenteritis, viral Infection, bacterial infection. Differential Diagnosis sepsis, flu. Data reviewed: vital signs, nurses notes, lab test result(s), Flu: negative. Consideration of Admission/Observation Escalation of care including admission/observation considered. I considered the following discharge prescriptions or medication management in the emergency department Medications were administered in the Emergency Department. See MAR. Test considered but Not performed: Labs: no cbc, no comp met. Historians other than the Patient: pt well informed. Care significantly affected by the following chronic conditions: none. 04/23 08:24 Order name: Urinalysis w/ reflexes; Complete Time: 09:20 [facility] 04/23 08:24 Order name: PREGU; Complete Time: 09:20 [facility] 04/23 08:24 Order name: Strep; Complete Time: 09:47 [facility] 04/23 08:24 Order name: Flu; Complete Time: 09:47 [facility] 04/23 08:24 Order name: SARS RAPID; Complete Time: 09:47 [facility] 04/23 09:21 Order name: PO challenge; Complete Time: 09:30 [facility] Administered Medications: 08:45 Drug: Ondansetron Oral Disintegrating Tablet Oral Disintegrating Tablet 4 mg PO once bp Route: PO; 10:12 Follow up: Response: Nausea is decreased bp 09:29 Drug: Acetaminophen PO 650 mg PO once Route: PO; bp 10:12 Follow up: Response: No adverse reaction bp 09:30 Drug: Ibuprofen PO 600 mg PO once Route: PO; bp 10:12 Follow up: Response: No adverse reaction bp 10:00 Drug: Rocephin (cefTRIAXone) IM 1 grams IM once Route: IM; Site: right gluteus; bp 10:12 Follow up: Response: No adverse reaction bp 10:00 Drug: Amoxicillin-Clavulanate PO 875 mg PO once Route: PO; bp 10:13 Follow up: Response: No adverse reaction bp 10:00 Drug: Dexamethasone PO 10 mg PO once Route: PO; bp 10:13 Follow up: Response: No adverse reaction bp Disposition Summary: 04/23/24 09:53 Discharge Ordered Notes: Location: Home [facility] Problem: new [facility] Symptoms: have improved [facility] Condition: Stable [facility] Diagnosis - Fever, unspecified yovani - Streptococcal pharyngitis yovani - Streptococcal tonsillitis yovani - Vomiting yovani Followup: [facility] - With: Private Physician - When: 2 - 3 days - Reason: Recheck today's complaints, Continuance of care, Re-evaluation by your physician Discharge Instructions: - Discharge Summary Sheet [facility] - Fever, Adult yovani - Pharyngitis yovani - Sore Throat [facility] - Rapid Strep Test [facility] - Strep Throat, Adult [facility] - Upper Respiratory Infection, Adult [facility] - Strep Throat, Adult, [id number] [facility] Forms: - Medication Reconciliation Form [facility] - Antibiotic Education [facility] - Prescription Opioid Use [facility] - Patient Portal Instructions [facility] - Leadership Thank You Letter [facility] - Work release form bp Prescriptions: - ondansetron 4 mg Oral Tablet,disintegrating - take 1 tablet ORAL route every 6-8 hours for 5 days; 20 tablet; Refills: 0, [facility] Product Selection Permitted - Augmentin 875-125 mg Oral Tablet - take 1 tablet ORAL route every 12 hours for 10 days; 20 tablet; Refills: 0, [facility] Product Selection Permitted Signatures: Dispatcher [employer] Ehsan Wayne MD MD cha Blanchard, Shelby, RN RN Winston Goldman RN RN bp
--- NOTE | 2024-04-23 09:54 | ER ---
Nurse's Notes [facility] Name: Maria L Foreman Age: 24 yrs Sex: Female : 2000 Arrival Date: 04/23/2024 Time: 08:11 Bed 20 Private MD: Diagnosis: Fever, unspecified;Streptococcal pharyngitis;Streptococcal tonsillitis;Vomiting Presentation: 04/23 08:24 Chief complaint: Patient states: sore throat and fever that began two days ago. Body ss aches that began last night. Tylenol last taken at 0400 this am. Coronavirus screen: Client denies travel out of the [place] in the last 14 days. Ebola Screen: Patient denies exposure to infectious person. Patient denies travel to an Ebola-affected area in the 21 days before illness onset. Initial Sepsis Screen: Does the patient meet any 2 criteria? No. Patient's initial sepsis screen is negative. Does the patient have a suspected source of infection? No. Patient's initial sepsis screen is negative. Risk Assessment: Do you want to hurt yourself or someone else? Patient reports no desire to harm self or others. Onset of symptoms was April 21, 2024. 08:24 Method Of Arrival: Ambulatory ss 08:24 Acuity: LEV 3 ss Triage Assessment: 08:30 General: Appears in no apparent distress. uncomfortable, Behavior is calm, cooperative, bp appropriate for age. Pain: Complains of pain in neck. EENT: Reports pain when swallowing. Neuro: No deficits noted. Cardiovascular: No deficits noted. Respiratory: No deficits noted. GI: Reports nausea. : No signs and/or symptoms were reported regarding the genitourinary system. Derm: No deficits noted. Musculoskeletal: No deficits noted. Historical: - Allergies: 08:25 No Known Allergies; ss - Home Meds: 08:25 None [Active]; ss - PMHx: 08:25 None; ss - PSHx: 08:25 None; ss - Immunization history:: Client reports receiving the 2nd dose of the Covid vaccine. - Infectious Disease History:: Denies. - Social history:: Smoking status: Patient denies any tobacco usage or history of. Screenin:30 [facility] ED Fall Risk Assessment (Adult) History of falling in the last 3 months, bp including since admission No falls in past 3 months (0 pts) Confusion or Disorientation No (0 pts) Intoxicated or Sedated No (0 pts) Impaired Gait No (0 pts) Mobility Assist Device Used No (0 pt) Altered Elimination No (0 pt) Score/Fall Risk Level 0 - 2 = Low Risk. Abuse screen: Denies threats or abuse. Denies injuries from another. Nutritional screening: No deficits noted. Tuberculosis screening: No symptoms or risk factors identified. Assessment: 08:30 General: Appears in no apparent distress. Behavior is calm, cooperative, appropriate bp for age. GI: Abdomen is non-distended. EENT: Throat is reddened. Vital Signs: 08:24 BP 117 / 79; Pulse 128; Resp 15; Temp 98.9(O); Pulse Ox 97% on R/A; Weight 83.91 kg; ss Height 5 ft. 2 in. ; Pain 8/10; 10:43 BP 104 / 76; Pulse 107; Resp 20; Pulse Ox 99% ; bp 08:24 Body Mass Index 33.84 (83.91 kg, 157.48 cm) ss 08:24 Pain Scale: Adult ss ED Course: 08:16 Patient arrived in ED. mg5 08:17 Winston Goldman, RN is Primary Nurse. bp 08:23 Ehsan Angel MD is Attending Physician. yovani 08:25 Triage completed. ss 08:25 Arm band placed on right wrist. ss 08:30 Patient has correct armband on for positive identification. bp 08:51 COVID swab sent to lab. Flu and/or RSV swab sent to lab. Strep swab sent to lab. bp 10:43 No provider procedures requiring assistance completed. Patient did not have IV access bp during this emergency room visit. Administered Medications: 08:45 Drug: Ondansetron Oral Disintegrating Tablet Oral Disintegrating Tablet 4 mg PO once bp Route: PO; 10:12 Follow up: Response: Nausea is decreased bp 09:29 Drug: Acetaminophen PO 650 mg PO once Route: PO; bp 10:12 Follow up: Response: No adverse reaction bp 09:30 Drug: Ibuprofen PO 600 mg PO once Route: PO; bp 10:12 Follow up: Response: No adverse reaction bp 10:00 Drug: Rocephin (cefTRIAXone) IM 1 grams IM once Route: IM; Site: right gluteus; bp 10:12 Follow up: Response: No adverse reaction bp 10:00 Drug: Amoxicillin-Clavulanate PO 875 mg PO once Route: PO; bp 10:13 Follow up: Response: No adverse reaction bp 10:00 Drug: Dexamethasone PO 10 mg PO once Route: PO; bp 10:13 Follow up: Response: No adverse reaction bp Medication: 08:30 VIS not applicable for this client. bp Outcome: 09:53 Discharge ordered by . yovani 10:35 Patient left the ED. bp 10:43 Discharged to home ambulatory, bp 10:43 Condition: stable 10:43 Discharge instructions given to patient, Instructed on discharge instructions, follow up and referral plans. medication usage, Demonstrated understanding of instructions, follow-up care, medications, Prescriptions given X 2, Signatures: Ehsan Angel MD MD cha Blanchard, Shelby, RN RN Winston Vargas, CATALINA RN Enid Rider mg5
[2024-04-23] MEDS ORDERED: CEFTRIAXONE 1000 MG/VIAL ONE (10:06)
[2024-04-23] MEDS ORDERED: LIDOCAINE 1% MPF 2 ML AMPULE ONE (10:06)
[2024-04-23] MEDS ORDERED: AMOX/K CLAV 875 MG TAB ONE (10:06)
[2024-04-23] MEDS ORDERED: dexAMETHasone 4 MG TAB ONE (10:06)
[2024-04-23 13:04] VITALS: BP 117/79; TEMP 98.9; O2SAT 97
--- OUTSIDE RECORDS SUMMARY | 2024-04-26 07:59 | XMS REPORT | Continuity of Care Document ---
Author Name Unknown Address [address] [facility] [address] [place] [address] [facility] thconnect Address [address] [facility] [place] [address] Care Team Providers Care [employer] Name Role Phone Rozina Taylor Primary Care Physicia n APARNA REES Attending Clinician Unavailable MERLY GARDNER Attending Clinician ROZINA Ortiz Attending Clinician Unavail able Visit, Ryann Nurse Attending Clinician Unava ilable Rozina Taylor Attending Clinician + ANJALI MEDEROS Attending Clinician Unavailable Doctor Unassigned, [place] Attending Clinician U karol Tinoco MD, Turner Attending Clinician [phone] Oscar Gonzalez MD Attending Clinician [phone] Winston Farley MD Attending Clinician [phone] Merly Gardner CNM Attending Clinician [phone] Provider, Ryann Temp Attending Clinician Sherri vailable Ultrasound, Jorgelisa Attending Clinician Unavaila Merary Mackey MD Attending Clinician [phone] MERARY SMILEY Attending Clinician Unavailable MERARY SMILEY Attending Clinician Unavailable GAY COE Attending Clinician Unavailab Storm CORTEZ, Last Melgar Attending Clinician + LAST DOMINGUEZ Attending Clinician Unav ailable Petersherita ROMULO, Clara George Attending Clinician Gay Montana Attending Clinician Luis Alfredo Max DO Attending Clinician [phone] Turner Tinoco MD Admitting Clinician [phone] Payers Payer Name Policy Type Policy Number Effective Date Expirati on Date Source [id number] [facility] [id number] 2022 00:00:00 MEDICAID PENDING PENDING 2020 00:00:00 Problems Condition Name Condition Details Condition Category Status Onset Date Resolution Date Last Treatment Date Treating Clinician Comments Source Pre-eclamp ruthie in third trimester Pre-eclamp ruthie in third trimester Disease Active 4-06 00:00: 00 [facility] Acute blood loss anemia Acute blood loss anemia Disease Active 4-06 00:00: 00 [facility] Obstetrica l laceration Obstetrica l laceration Disease Active 4-06 00:00: 00 [facility] Elevated blood pressure reading without diagnosis of hypertensi on Elevated blood pressure reading without diagnosis of hypertensi on Disease Active 0 4-04 00:00: 00 [facility] 38 weeks gestation of 38 weeks gestation of Disease Active 0 4-04 00:00: 00 [facility] Anemia of mother in , antepartum Anemia of mother in , antepartum Disease Active 2- 00:00: 00 [facility] Anemia of mother in , antepartum Anemia of mother in , antepartum Disease Active 2- 00:00: 00 [facility] Pain of round ligament affecting , antepartum Pain of round ligament affecting , antepartum Disease Active 2 00:00: 00 [facility] GBS (group B streptococ cus) UTI complicati ng GBS (group B streptococ cus) UTI complicati ng Disease Active 2021-05 00:00: 00 [facility] History of HSV History of HSV Disease Active 2021-05 00:00: 00 [facility] Herpes infection in Herpes infection in Disease Active 2021-05 00:00: 00 [facility] Susceptibl e to varicella (non-immun e), currently Susceptibl e to varicella (non-immun e), currently Disease Active 06-08 00:00: 00 [facility] Obesity in Obesity in Disease Active 06-07 00:00: 00 [facility] History of gestationa l hypertensi on History of gestationa l hypertensi on Disease Active 06-07 00:00: 00 Overview: Formattin g of this note might be different from the original. Reports with last not started on meds [facility] Multiparit y Multiparit y Disease Active 06-07 00:00: 00 [facility] Supervisio n of high-risk Supervisio n of high-risk Disease Active 06-07 00:00: 00 [facility] (spontaneo us vaginal delivery) (spontaneo us vaginal delivery) Disease Active 2018-05 0 00:00: 00 [facility] Single live Single live Disease Active 2018-05 0- 00:00: 00 [facility] Maternal varicella, non-immune Maternal varicella, non-immune Disease Active 07-14 00:00: 00 Overview: Formattin g of this note might be different from the original. [facility] Allergies, Adverse Reactions, Alerts Allergy Name Allergy Type Status Severity Reaction(s) Onset Date Inactive Date Treating Clinician Comments Source NO KNOWN ALLERGIE S Drug Class Active [facility] Social History Social Habit Start Date Stop Date Quantity Comments Source ASSERTION 2021-12-11 00:00:00 [facility] intake 2023-10-29 00:00:00 2023-10-29 00:00:00 Current non-drinker of alcohol (finding) [facility] Exposure to SARS-CoV-2 (event) 2022-08-18 00:00:00 2022-08-28 13:35:00 Not sure [facility] History of Social function 2022-01-31 00:00:00 2022-01-31 00:00:00 [facility] Tobacco use and exposure 2022-01-31 00:00:00 2022-01-31 00:00:00 Smokeless tobacco non-user [facility] Alcohol intake 2022-01-31 00:00:00 2022-01-31 00:00:00 Current non-drinker of alcohol (finding) [facility] Sex assigned at 2000 00:00:00 2000 00:00:00 [facility] Smoking Status Start Date Stop Date Source Never smoked tobacco [facility] Medications Ordered Medication Name Filled Medication Name Start Date Stop Date Current Medication? Ordering Clinician Indication Dosage Frequency Signature (SIG) Comments Components Source [id number] fum-folic () 27 mg iron- 1 mg folic tablet 08-22 00:00: 00 Yes [id number] 1{tbl} Take 1 tablet by mouth in the morning. [facility] docusate 100 mg capsule 08-22 00:00: 00 Yes [id number] 200mg Take 2 capsules by mouth once daily as needed for Constipati on. [facility] ferrous sulfate 325 mg (65 mg iron) tablet 08-22 00:00: 00 Yes [id number] 325mg Take 1 tablet by mouth in the morning. [facility] ibuprofen 600 mg tablet 08-22 00:00: 00 Yes [id number] 600mg Take 1 tablet by mouth every 6 (six) hours as needed (Pain). Take with food or milk. [facility] [id number] fum-folic () 27 mg iron- 1 mg folic tablet 08-22 00:00: 00 Yes [id number] 1{tbl} Take 1 tablet by mouth in the morning. [facility] ibuprofen (IBU) tablet 600 mg 08-21 17:00: 00 Yes 600mg 600 mg, Oral, Q6H, First dose on Fri08/21/22 at 1200, Until Discontinu ed, Routine [facility] INVESTIGATI ONAL DRUG - hydrochloro thiazide 50 mg or placebo capsule 08-21 15:45: 00 09-04 13:59 :00 No 50mg 50 mg, Oral, DAILY, 14 doses, First dose (after last modificati on) on Fri08/21/22 at 1045, Last dose on Fri09/03/22 at 0900, Routine
Principal investigat or: SAVANNA ERICKSON [facility] rho(D) immune globulin (RHOGAM) syringe 300 mcg 08-21 13:02: 12 Yes 300ug 300 mcg, Intramuscu lar, ONCE, For 1 dose, Conditiona l, Routine [facility] acetaminoph en (TYLENOL) tablet 650 mg 08-21 13:02: 08 Yes 650mg 650 mg, Oral, Q6HPRN, Starting on Fri08/21/22 at 0802, Until Discontinu ed, Routine, Pain (scale 1-3) [facility] diphenhydrA MINE (BENADRYL) tablet 25 mg 08-21 13:02: 08 Yes 25mg 25 mg, Oral, Q6HPRN, Starting on Fri08/21/22 at 0802, Until Discontinu ed, Routine, Sleep, Itching [facility] ondansetron (ZOFRAN (PF)) injection 4 mg 08-21 13:02: 08 Yes 4mg 4 mg, Slow IV Push, Q8HPRN, Starting on Fri08/21/22 at 0802, Until Discontinu ed, Routine, Nausea and Vomiting (N/V) [facility] simethicone (GAS RELIEF (SIMETHICON E)) chewable tablet 160 mg 08-21 13:02: 08 Yes 160mg 160 mg, Oral, PC+HSPRN, Starting on Fri08/21/22 at 0802, Until Discontinu ed, Routine, Gas [facility] docusate (COLACE) capsule 200 mg 08-21 13:02: 08 Yes 200mg 200 mg, Oral, QDAILYPRN, Starting on Fri08/21/22 at 0802, Until Discontinu ed, Routine, Constipati on [facility] magnesium hydroxide (MILK OF MAGNESIA) 400 mg/5 mL suspension 30 mL 08-21 13:02: 08 Yes 30mL 30 mL, Oral, QDAILYPRN, Starting on Fri08/21/22 at 0802, Until Discontinu ed, Routine, Constipati on [facility] benzocaine- menthol (DERMOPLAST ) 20-0.5 % topical spray 08-21 13:02: 07 Yes Topical, PRN, Starting on Fri08/21/22 at 0802, Until Discontinu ed, Routine, Perineum discomfort [facility] ibuprofen (IBU) tablet 600 mg 08-21 11:45: 00 08-21 10:55 :00 No 600mg 600 mg, Oral, ONCE, 1 dose, On Fri08/21/22 at 0645, Routine [facility] ceFAZolin (ANCEF) 1,000 mg in NaCl 0.9% (NS) 100 mL MINI-BAG 08-21 11:45: 00 08-21 11:35 :30 No 1000mg 1,000 mg, Intravenou s, ONCE, 1 dose, On Fri08/21/22 at 0645, Administer over 30 Minutes, 100 mL
Reas on for Anti-Infec tive: Empiric Non-Surgic al Prophylaxi s
Durat ion of therapy: 72 hours [facility] oxytocin (PITOCIN) 30 units in NS 500 mL IV infusion 08-21 10:06: 19 08-21 13:02 :10 No 600mL/h 600 mL/hr, IV Infusion, PRN, For post delivery uterine atony., Starting on Fri08/21/[address] at 600 mL/hr for 1 hr then 150 mL/hr for 1 hr.
[facility] oxytocin (PITOCIN) 30 units in NS 500 mL IV infusion 08-21 10:06: 19 08-21 13:02 :10 No 300mL/h 300 mL/hr, IV Infusion, SEE-INSTRU CTIONS, Starting on Fri08/21/[address] at 300 mL/hr for 1 hr then 150 mL/hr for 1 hr. & nbsp; For post delivery uterotonic
[facility] ondansetron (ZOFRAN (PF)) injection 4 mg 08-21 06:30: 00 08-21 05:48 :00 No 4mg 4 mg, Slow IV Push, ONCE, On Fri08/21/22 at 0130, For 1 dose
Do ses of ondansetro n 16 mg and above need to be administer ed via IV piggyback. For Dose >=24mg ECG monitoring is advisable.
[facility] lactated ringers IV infusion 500 mL 08-21 04:30: 00 08-21 03:48 :38 No 500mL at 999 mL/hr, 500 mL, IV Infusion, ONCE, 1 dose, On Fri08/20/22 at 2330, Routine [facility] lidocaine-e pinephrine (XYLOCAINE W/EPINEPHRI NE) 1.5 %-1:200,000 injection 08-21 04:18: 00 08-21 11:52 :22 No Intraderma l, ONCE INTRA PROCEDURE, Starting on Fri08/20/22 at 2318, Until Discontinu ed, Routine, Intra-op [facility] ropivacaine 0.2 % (NAROPIN (PF)) epidural infusion 08-21 04:18: 00 08-21 11:52 :22 No Epidural, CONTINUOUS PRN, Starting on Fri08/20/22 at 2318, Until Discontinu ed, Routine, Intra-op [facility] lactated ringers IV infusion 500 mL 08-21 03:35: 45 08-21 09:47 :04 No 500mL at 999 mL/hr, 500 mL, IV Infusion, PRN - SEE INSTRUCTIO NS, 1 dose, Starting on Fri08/20/22 at 2235, Until Fri08/21/22 at 0447, Routine [facility] sodium citrate-cit ronni acid (BICITRA) 500-334 mg/5 mL solution 30 mL 08-21 03:35: 45 08-21 03:49 :00 No 30mL 30 mL, Oral, PRE-PROCED URE ONCE, 1 dose, Starting on Fri08/20/22 at 2235, Until Fri08/20/22 at 2249, Routine, Surgery/Pr ocedure [facility] D5W-LR IV infusion 1,000 mL 08-21 01:31: 21 08-21 13:02 :10 No 1000mL at 1-125 mL/hr, IV Infusion, TITRATE, Starting on Fri08/20/22 at 2031, Until Fri08/21/22 at 0802, Routine [facility] acyclovir 400 mg tablet 3-15 00:00: 00 Yes [id number] 400mg Take 1 tablet by mouth in the morning and 1 tablet at noon and 1 tablet in the evening. [facility] Iron Fum & P-FA-Vit B & C No.9 (INTEGRA PLUS) 125 mg iron- 1 mg Cap 2- 00:00: 00 08-22 00:00 :00 No [id number] 1{capsu le} Take 1 capsule by mouth daily. [facility] aspirin 81 mg chewable tablet 2021-05 1-04 00:00: 00 08-22 00:00 :00 No [id number] 81mg Take 1 tablet by mouth in the morning. [facility] ampicillin 500 mg capsule - 00:00: 00 02-15 04:59 :00 No [id number] 500mg Take 1 capsule by mouth every 6 (six) hours for 10 days. [facility] vit 33-iron-fol ic-dha (SELECT-OB + DHA) 29 mg iron-1 mg -250 mg combo pack -15 00:00: 00 08-22 00:00 :00 No [id number] 1{packe t} Take 1 Packet by mouth in the morning. [facility] vit 33-iron-fol ic-dha (SELECT-OB + DHA) 29 mg iron-1 mg -250 mg combo pack 01-31 00:00: 00 08-22 00:00 :00 No [id number] 1{packe t} Take 1 Packet by mouth in the morning. [facility] norethindro ne 0.35 mg tablet 2018-05 00:00: 00 03-22 00:00 :00 No [id number] 1{tbl} Take 1 tablet by mouth daily. [facility] ibuprofen 600 mg tablet 2018-05 00:00: 00 03-22 00:00 :00 No [id number] 600mg Take 1 tablet by mouth every 6 (six) hours as needed for Pain (scale 1-3) or Pain (scale 4-6) (Pain). Take with food or milk. [facility] Immunizations Ordered Immunization Name Filled Immunization Name Date Status Comments Source [facility] 2022-06-18 00:00:00 Completed [facility] TDAP 2022-06-18 00:00:00 Completed [facility] TDAP 2022-06-18 00:00:00 Completed [facility] TDAP 2022-06-18 00:00:00 Completed [facility] TDAP 2022-06-18 00:00:00 Completed [facility] TDAP 2022-06-18 00:00:00 Completed [facility] TDAP 2022-06-18 00:00:00 Completed [facility] TDAP 2022-06-18 00:00:00 Completed [facility] TDAP 2022-06-18 00:00:00 Completed [facility] TDAP 2022-06-18 00:00:00 Completed [facility] TDAP 2022-06-18 00:00:00 Completed [facility] Influenza Virus Vaccine Quad IM, Preserv and ABX Free 6 MO-64 YRS 2022-01-31 00:00:00 Completed [facility] Influenza Virus Vaccine Quad IM, Preserv and ABX Free 6 MO-64 YRS 2022-01-31 00:00:00 Completed [facility] Influenza Virus Vaccine Quad IM, Preserv and ABX Free 6 MO-64 YRS 2022-01-31 00:00:00 Completed [facility] Influenza Virus Vaccine Quad IM, Preserv and ABX Free 6 MO-64 YRS 2022-01-31 00:00:00 Completed [facility] Influenza Virus Vaccine Quad IM, Preserv and ABX Free 6 MO-64 YRS 2022-01-31 00:00:00 Completed [facility] Influenza Virus Vaccine Quad IM, Preserv and ABX Free 6 MO-64 YRS 2022-01-31 00:00:00 Completed [facility] Influenza Virus Vaccine Quad IM, Preserv and ABX Free 6 MO-64 YRS 2022-01-31 00:00:00 Completed [facility] Influenza Virus Vaccine Quad IM, Preserv and ABX Free 6 MO-64 YRS 2022-01-31 00:00:00 Completed [facility] Influenza Virus Vaccine Quad IM, Preserv and ABX Free 6 MO-64 YRS 2022-01-31 00:00:00 Completed [facility] Influenza Virus Vaccine Quad IM, Preserv and ABX Free 6 MO-64 YRS 2022-01-31 00:00:00 Completed [facility] Influenza Virus Vaccine Quad IM, Preserv and ABX Free 6 MO-64 YRS 2022-01-31 00:00:00 Completed [facility] Influenza Virus Vaccine Quad IM, Preserv and ABX Free 6 MO-64 YRS 2022-01-31 00:00:00 Completed [facility] Influenza Virus Vaccine Quad IM, Preserv and ABX Free 6 MO-64 YRS 2022-01-31 00:00:00 Completed [facility] Influenza Virus Vaccine Quad IM, Preserv and ABX Free 6 MO-64 YRS 2022-01-31 00:00:00 Completed [facility] Influenza Virus Vaccine Quad IM, Preserv and ABX Free 6 MO-64 YRS 2022-01-31 00:00:00 Completed [facility] Influenza Virus Vaccine Quad IM, Preserv and ABX Free 6 MO-64 YRS 2022-01-31 00:00:00 Completed [facility] Influenza Virus Vaccine Quad IM, Preserv and ABX Free 6 MO-64 YRS 2022-01-31 00:00:00 Completed [facility] Influenza Virus Vaccine Quad IM, Preserv and ABX Free 6 MO-64 YRS 2022-01-31 00:00:00 Completed [facility] Influenza Virus Vaccine Quad IM, Preserv and ABX Free 6 MO-64 YRS 2022-01-31 00:00:00 Completed [facility] Influenza Virus Vaccine Quad .5 mL IM 6+ MO 2020-06-07 00:00:00 Completed [facility] Influenza Virus Vaccine Quad .5 mL IM 6+ MO 2020-06-07 00:00:00 Completed [facility] Influenza Virus Vaccine Quad .5 mL IM 6+ MO 2020-06-07 00:00:00 Completed [facility] Influenza Virus Vaccine Quad .5 mL IM 6+ MO 2020-06-07 00:00:00 Completed [facility] Influenza Virus Vaccine Quad .5 mL IM 6+ MO 2020-06-07 00:00:00 Completed [facility] Influenza Virus Vaccine Quad .5 mL IM 6+ MO 2020-06-07 00:00:00 Completed [facility] Influenza Virus Vaccine Quad .5 mL IM 6+ MO 2020-06-07 00:00:00 Completed [facility] Influenza Virus Vaccine Quad .5 mL IM 6+ MO 2020-06-07 00:00:00 Completed [facility] Influenza Virus Vaccine Quad .5 mL IM 6+ MO 2020-06-07 00:00:00 Completed [facility] Influenza Virus Vaccine Quad .5 mL IM 6+ MO 2020-06-07 00:00:00 Completed [facility] Influenza Virus Vaccine Quad .5 mL IM 6+ MO 2020-06-07 00:00:00 Completed [facility] Influenza Virus Vaccine Quad .5 mL IM 6+ MO 2020-06-07 00:00:00 Completed [facility] Influenza Virus Vaccine Quad .5 mL IM 6+ MO 2020-06-07 00:00:00 Completed [facility] Influenza Virus Vaccine Quad .5 mL IM 6+ MO 2020-06-07 00:00:00 Completed [facility] Influenza Virus Vaccine Quad .5 mL IM 6+ MO 2020-06-07 00:00:00 Completed [facility] Influenza Virus Vaccine Quad .5 mL IM 6+ MO 2020-06-07 00:00:00 Completed [facility] Influenza Virus Vaccine Quad .5 mL IM 6+ MO 2020-06-07 00:00:00 Completed [facility] Influenza Virus Vaccine Quad .5 mL IM 6+ MO 2020-06-07 00:00:00 Completed [facility] Influenza Virus Vaccine Quad .5 mL IM 6+ MO 2020-06-07 00:00:00 Completed [facility] Influenza Virus Vaccine Quad .5 mL IM 6+ MO 2019-03-30 00:00:00 Completed [facility] Influenza Virus Vaccine Quad .5 mL IM 6+ MO 2019-03-30 00:00:00 Completed [facility] Influenza Virus Vaccine Quad .5 mL IM 6+ MO 2019-03-30 00:00:00 Completed [facility] Influenza Virus Vaccine Quad .5 mL IM 6+ MO 2019-03-30 00:00:00 Completed [facility] Influenza Virus Vaccine Quad .5 mL IM 6+ MO 2019-03-30 00:00:00 Completed [facility] Influenza Virus Vaccine Quad .5 mL IM 6+ MO 2019-03-30 00:00:00 Completed [facility] Influenza Virus Vaccine Quad .5 mL IM 6+ MO 2019-03-30 00:00:00 Completed [facility] Influenza Virus Vaccine Quad .5 mL IM 6+ MO 2019-03-30 00:00:00 Completed [facility] Influenza Virus Vaccine Quad .5 mL IM 6+ MO 2019-03-30 00:00:00 Completed [facility] Influenza Virus Vaccine Quad .5 mL IM 6+ MO 2019-03-30 00:00:00 Completed [facility] Influenza Virus Vaccine Quad .5 mL IM 6+ MO 2019-03-30 00:00:00 Completed [facility] Influenza Virus Vaccine Quad .5 mL IM 6+ MO 2019-03-30 00:00:00 Completed [facility] Influenza Virus Vaccine Quad .5 mL IM 6+ MO 2019-03-30 00:00:00 Completed [facility] Influenza Virus Vaccine Quad .5 mL IM 6+ MO 2019-03-30 00:00:00 Completed [facility] Influenza Virus Vaccine Quad .5 mL IM 6+ MO 2019-03-30 00:00:00 Completed [facility] Influenza Virus Vaccine Quad .5 mL IM 6+ MO 2019-03-30 00:00:00 Completed [facility] Influenza Virus Vaccine Quad .5 mL IM 6+ MO 2019-03-30 00:00:00 Completed [facility] Influenza Virus Vaccine Quad .5 mL IM 6+ MO 2019-03-30 00:00:00 Completed [facility] Influenza Virus Vaccine Quad .5 mL IM 6+ MO 2019-03-30 00:00:00 Completed [facility] TDAP 2018-12-01 00:00:00 Completed [facility] TDAP 2018-12-01 00:00:00 Completed [facility] TDAP 2018-12-01 00:00:00 Completed [facility] TDAP 2018-12-01 00:00:00 Completed [facility] TDAP 2018-12-01 00:00:00 Completed [facility] TDAP 2018-12-01 00:00:00 Completed [facility] TDAP 2018-12-01 00:00:00 Completed [facility] TDAP 2018-12-01 00:00:00 Completed [facility] TDAP 2018-12-01 00:00:00 Completed [facility] TDAP 2018-12-01 00:00:00 Completed [facility] TDAP 2018-12-01 00:00:00 Completed [facility] TDAP 2018-12-01 00:00:00 Completed [facility] TDAP 2018-12-01 00:00:00 Completed [facility] TDAP 2018-12-01 00:00:00 Completed [facility] TDAP 2018-12-01 00:00:00 Completed [facility] TDAP 2018-12-01 00:00:00 Completed [facility] TDAP 2018-12-01 00:00:00 Completed [facility] TDAP 2018-12-01 00:00:00 Completed [facility] TDAP 2018-12-01 00:00:00 Completed [facility] Influenza Virus Vaccine Quad .5 mL IM 6+ MO 2017-01-30 00:00:00 Completed [facility] Influenza Virus Vaccine Quad .5 mL IM 6+ MO 2017-01-30 00:00:00 Completed [facility] Influenza Virus Vaccine Quad .5 mL IM 6+ MO 2017-01-30 00:00:00 Completed [facility] Influenza Virus Vaccine Quad .5 mL IM 6+ MO 2017-01-30 00:00:00 Completed [facility] Influenza Virus Vaccine Quad .5 mL IM 6+ MO 2017-01-30 00:00:00 Completed [facility] Influenza Virus Vaccine Quad .5 mL IM 6+ MO 2017-01-30 00:00:00 Completed [facility] Influenza Virus Vaccine Quad .5 mL IM 6+ MO 2017-01-30 00:00:00 Completed [facility] Influenza Virus Vaccine Quad .5 mL IM 6+ MO 2017-01-30 00:00:00 Completed [facility] Influenza Virus Vaccine Quad .5 mL IM 6+ MO 2017-01-30 00:00:00 Completed [facility] Influenza Virus Vaccine Quad .5 mL IM 6+ MO 2017-01-30 00:00:00 Completed [facility] Meningococcal B, OMV 2016-09-26 00:00:00 Completed [facility] Meningococcal B, OMV 2016-09-26 00:00:00 Completed [facility] Meningococcal B, OMV 2016-09-26 00:00:00 Completed [facility] Meningococcal B, OMV 2016-09-26 00:00:00 Completed [facility] Meningococcal B, OMV 2016-09-26 00:00:00 Completed [facility] Meningococcal B, OMV 2016-09-26 00:00:00 Completed [facility] Meningococcal B, OMV 2016-09-26 00:00:00 Completed [facility] Meningococcal B, OMV 2016-09-26 00:00:00 Completed [facility] Meningococcal B, OMV 2016-09-26 00:00:00 Completed [facility] Meningococcal B, OMV 2016-09-26 00:00:00 Completed [facility] Meningococcal B, OMV 2016-06-06 00:00:00 Completed [facility] Meningococcal B, OMV 2016-06-06 00:00:00 Completed [facility] Meningococcal B, OMV 2016-06-06 00:00:00 Completed [facility] Meningococcal B, OMV 2016-06-06 00:00:00 Completed [facility] Meningococcal B, OMV 2016-06-06 00:00:00 Completed [facility] Meningococcal B, OMV 2016-06-06 00:00:00 Completed [facility] Meningococcal B, OMV 2016-06-06 00:00:00 Completed [facility] Meningococcal B, OMV 2016-06-06 00:00:00 Completed [facility] Meningococcal B, OMV 2016-06-06 00:00:00 Completed [facility] Meningococcal B, OMV 2016-06-06 00:00:00 Completed [facility] Influenza Virus Vaccine - Whole 2016-02-07 00:00:00 Completed [facility] Meningococcal Polysaccharide (groups A, C, Y and W-135) conjugate vaccine (MCV4P) 2016-02-07 00:00:00 Completed [facility] Meningococcal B, OMV 2016-02-07 00:00:00 Completed [facility] Influenza Virus Vaccine - Whole 2016-02-07 00:00:00 Completed [facility] Meningococcal Polysaccharide (groups A, C, Y and W-135) conjugate vaccine (MCV4P) 2016-02-07 00:00:00 Completed [facility] Meningococcal B, OMV 2016-02-07 00:00:00 Completed [facility] Influenza Virus Vaccine - Whole 2016-02-07 00:00:00 Completed [facility] Meningococcal Polysaccharide (groups A, C, Y and W-135) conjugate vaccine (MCV4P) 2016-02-07 00:00:00 Completed [facility] Meningococcal B, OMV 2016-02-07 00:00:00 Completed [facility] Influenza Virus Vaccine - Whole 2016-02-07 00:00:00 Completed [facility] Meningococcal Polysaccharide (groups A, C, Y and W-135) conjugate vaccine (MCV4P) 2016-02-07 00:00:00 Completed [facility] Meningococcal B, OMV 2016-02-07 00:00:00 Completed [facility] Influenza Virus Vaccine - Whole 2016-02-07 00:00:00 Completed [facility] Meningococcal Polysaccharide (groups A, C, Y and W-135) conjugate vaccine (MCV4P) 2016-02-07 00:00:00 Completed [facility] Meningococcal B, OMV 2016-02-07 00:00:00 Completed [facility] Influenza Virus Vaccine - Whole 2016-02-07 00:00:00 Completed [facility] Meningococcal Polysaccharide (groups A, C, Y and W-135) conjugate vaccine (MCV4P) 2016-02-07 00:00:00 Completed [facility] Meningococcal B, OMV 2016-02-07 00:00:00 Completed [facility] Influenza Virus Vaccine - Whole 2016-02-07 00:00:00 Completed [facility] Meningococcal Polysaccharide (groups A, C, Y and W-135) conjugate vaccine (MCV4P) 2016-02-07 00:00:00 Completed [facility] Meningococcal B, OMV 2016-02-07 00:00:00 Completed [facility] Influenza Virus Vaccine - Whole 2016-02-07 00:00:00 Completed [facility] Meningococcal Polysaccharide (groups A, C, Y and W-135) conjugate vaccine (MCV4P) 2016-02-07 00:00:00 Completed [facility] Meningococcal B, OMV 2016-02-07 00:00:00 Completed [facility] Influenza Virus Vaccine - Whole 2016-02-07 00:00:00 Completed [facility] Meningococcal Polysaccharide (groups A, C, Y and W-135) conjugate vaccine (MCV4P) 2016-02-07 00:00:00 Completed [facility] Meningococcal B, OMV 2016-02-07 00:00:00 Completed [facility] Influenza Virus Vaccine - Whole 2016-02-07 00:00:00 Completed [facility] Meningococcal Polysaccharide (groups A, C, Y and W-135) conjugate vaccine (MCV4P) 2016-02-07 00:00:00 Completed [facility] Meningococcal B, OMV 2016-02-07 00:00:00 Completed [facility] Influenza Virus Vaccine - Whole 2015-03-16 00:00:00 Completed [facility] Influenza Virus Vaccine - Whole 2015-03-16 00:00:00 Completed [facility] Influenza Virus Vaccine - Whole 2015-03-16 00:00:00 Completed [facility] Influenza Virus Vaccine - Whole 2015-03-16 00:00:00 Completed [facility] Influenza Virus Vaccine - Whole 2015-03-16 00:00:00 Completed [facility] Influenza Virus Vaccine - Whole 2015-03-16 00:00:00 Completed [facility] Influenza Virus Vaccine - Whole 2015-03-16 00:00:00 Completed [facility] Influenza Virus Vaccine - Whole 2015-03-16 00:00:00 Completed [facility] Influenza Virus Vaccine - Whole 2015-03-16 00:00:00 Completed [facility] Influenza Virus Vaccine - Whole 2015-03-16 00:00:00 Completed [facility] HPV 2013-07-12 00:00:00 Completed [facility] HPV 2013-07-12 00:00:00 Completed [facility] HPV 2013-07-12 00:00:00 Completed [facility] HPV 2013-07-12 00:00:00 Completed [facility] HPV 2013-07-12 00:00:00 Completed [facility] HPV 2013-07-12 00:00:00 Completed [facility] HPV 2013-07-12 00:00:00 Completed [facility] HPV 2013-07-12 00:00:00 Completed [facility] HPV 2013-07-12 00:00:00 Completed [facility] HPV 2013-07-12 00:00:00 Completed [facility] Influenza Virus Vaccine - Whole 2013-02-08 00:00:00 Completed [facility] HPV 2013-02-08 00:00:00 Completed [facility] Influenza Virus Vaccine - Whole 2013-02-08 00:00:00 Completed [facility] HPV 2013-02-08 00:00:00 Completed [facility] Influenza Virus Vaccine - Whole 2013-02-08 00:00:00 Completed [facility] HPV 2013-02-08 00:00:00 Completed [facility] Influenza Virus Vaccine - Whole 2013-02-08 00:00:00 Completed [facility] HPV 2013-02-08 00:00:00 Completed [facility] Influenza Virus Vaccine - Whole 2013-02-08 00:00:00 Completed [facility] HPV 2013-02-08 00:00:00 Completed [facility] Influenza Virus Vaccine - Whole 2013-02-08 00:00:00 Completed [facility] HPV 2013-02-08 00:00:00 Completed [facility] Influenza Virus Vaccine - Whole 2013-02-08 00:00:00 Completed [facility] HPV 2013-02-08 00:00:00 Completed [facility] Influenza Virus Vaccine - Whole 2013-02-08 00:00:00 Completed [facility] HPV 2013-02-08 00:00:00 Completed [facility] Influenza Virus Vaccine - Whole 2013-02-08 00:00:00 Completed [facility] HPV 2013-02-08 00:00:00 Completed [facility] Influenza Virus Vaccine - Whole 2013-02-08 00:00:00 Completed [facility] HPV 2013-02-08 00:00:00 Completed [facility] HPV 2012-07-20 00:00:00 Completed [facility] HPV 2012-07-20 00:00:00 Completed [facility] HPV 2012-07-20 00:00:00 Completed [facility] HPV 2012-07-20 00:00:00 Completed [facility] HPV 2012-07-20 00:00:00 Completed [facility] HPV 2012-07-20 00:00:00 Completed [facility] HPV 2012-07-20 00:00:00 Completed [facility] HPV 2012-07-20 00:00:00 Completed [facility] HPV 2012-07-20 00:00:00 Completed [facility] HPV 2012-07-20 00:00:00 Completed [facility] Influenza Virus Vaccine - Whole 2011-02-16 00:00:00 Completed [facility] Meningococcal Polysaccharide (groups A, C, Y and W-135) conjugate vaccine (MCV4P) 2011-02-16 00:00:00 Completed [facility] TDAP 2011-02-16 00:00:00 Completed [facility] Influenza Virus Vaccine - Whole 2011-02-16 00:00:00 Completed [facility] Meningococcal Polysaccharide (groups A, C, Y and W-135) conjugate vaccine (MCV4P) 2011-02-16 00:00:00 Completed [facility] TDAP 2011-02-16 00:00:00 Completed [facility] Influenza Virus Vaccine - Whole 2011-02-16 00:00:00 Completed [facility] Meningococcal Polysaccharide (groups A, C, Y and W-135) conjugate vaccine (MCV4P) 2011-02-16 00:00:00 Completed [facility] TDAP 2011-02-16 00:00:00 Completed [facility] Influenza Virus Vaccine - Whole 2011-02-16 00:00:00 Completed [facility] Meningococcal Polysaccharide (groups A, C, Y and W-135) conjugate vaccine (MCV4P) 2011-02-16 00:00:00 Completed [facility] TDAP 2011-02-16 00:00:00 Completed [facility] Influenza Virus Vaccine - Whole 2011-02-16 00:00:00 Completed [facility] Meningococcal Polysaccharide (groups A, C, Y and W-135) conjugate vaccine (MCV4P) 2011-02-16 00:00:00 Completed [facility] TDAP 2011-02-16 00:00:00 Completed [facility] Influenza Virus Vaccine - Whole 2011-02-16 00:00:00 Completed [facility] Meningococcal Polysaccharide (groups A, C, Y and W-135) conjugate vaccine (MCV4P) 2011-02-16 00:00:00 Completed [facility] TDAP 2011-02-16 00:00:00 Completed [facility] Influenza Virus Vaccine - Whole 2011-02-16 00:00:00 Completed [facility] Meningococcal Polysaccharide (groups A, C, Y and W-135) conjugate vaccine (MCV4P) 2011-02-16 [facility] Influenza Virus Vaccine - Whole 2011-02-16 00:00:00 Completed [facility] Meningococcal Polysaccharide (groups A, C, Y and W-135) conjugate vaccine (MCV4P) 2011-02-16 00:00:00 Completed [facility] TDAP 2011-02-16 00:00:00 Completed [facility] Influenza Virus Vaccine - Whole 2011-02-16 00:00:00 Completed [facility] Meningococcal Polysaccharide (groups A, C, Y and W-135) conjugate vaccine (MCV4P) 2011-02-16 00:00:00 Completed [facility] TDAP 2011-02-16 00:00:00 Completed [facility] Influenza Virus Vaccine - Whole 2011-02-16 00:00:00 Completed [facility] Meningococcal Polysaccharide (groups A, C, Y and W-135) conjugate vaccine (MCV4P) 2011-02-16 00:00:00 Completed [facility] TDAP 2011-02-16 00:00:00 Completed [facility] Influenza Virus Vaccine - Whole 2010-06-13 00:00:00 Completed [facility] Influenza Virus Vaccine - Whole 2010-06-13 00:00:00 Completed [facility] Influenza Virus Vaccine - Whole 2010-06-13 00:00:00 Completed [facility] Influenza Virus Vaccine - Whole 2010-06-13 00:00:00 Completed [facility] Influenza Virus Vaccine - Whole 2010-06-13 00:00:00 Completed [facility] Influenza Virus Vaccine - Whole 2010-06-13 00:00:00 Completed [facility] Influenza Virus Vaccine - Whole 2010-06-13 00:00:00 Completed [facility] Influenza Virus Vaccine - Whole 2010-06-13 00:00:00 Completed [facility] Influenza Virus Vaccine - Whole 2010-06-13 00:00:00 Completed [facility] Influenza Virus Vaccine - Whole 2010-06-13 00:00:00 Completed [facility] Influenza Virus Vaccine Nasal 2009-02-22 00:00:00 Completed [facility] Influenza Virus Vaccine Nasal 2009-02-22 00:00:00 Completed [facility] Influenza Virus Vaccine Nasal 2009-02-22 00:00:00 Completed [facility] Influenza Virus Vaccine Nasal 2009-02-22 00:00:00 Completed [facility] Influenza Virus Vaccine Nasal 2009-02-22 00:00:00 Completed [facility] Influenza Virus Vaccine Nasal 2009-02-22 00:00:00 Completed [facility] Influenza Virus Vaccine Nasal 2009-02-22 00:00:00 Completed [facility] Influenza Virus Vaccine Nasal 2009-02-22 00:00:00 Completed [facility] Influenza Virus Vaccine Nasal 2009-02-22 00:00:00 Completed [facility] Influenza Virus Vaccine Nasal 2009-02-22 00:00:00 Completed [facility] Varicella (varivax)(chicken pox) 2006-10-03 00:00:00 Completed [facility] Varicella (varivax)(chicken pox) 2006-10-03 00:00:00 Completed [facility] Varicella (varivax)(chicken pox) 2006-10-03 00:00:00 Completed [facility] Varicella (varivax)(chicken pox) 2006-10-03 00:00:00 Completed [facility] Varicella (varivax)(chicken pox) 2006-10-03 00:00:00 Completed [facility] Varicella (varivax)(chicken pox) 2006-10-03 00:00:00 Completed [facility] Varicella (varivax)(chicken pox) 2006-10-03 00:00:00 Completed [facility] Varicella (varivax)(chicken pox) 2006-10-03 00:00:00 Completed [facility] Varicella (varivax)(chicken pox) 2006-10-03 00:00:00 Completed [facility] Varicella (varivax)(chicken pox) 2006-10-03 00:00:00 Completed [facility] MMR 2004-02-24 00:00:00 Completed [facility] IPV 2004-02-24 00:00:00 Completed [facility] MMR 2004-02-24 00:00:00 Completed [facility] IPV 2004-02-24 00:00:00 Completed [facility] MMR 2004-02-24 00:00:00 Completed [facility] IPV 2004-02-24 00:00:00 Completed [facility] MMR 2004-02-24 00:00:00 Completed [facility] IPV 2004-02-24 00:00:00 Completed [facility] MMR 2004-02-24 00:00:00 Completed [facility] IPV 2004-02-24 00:00:00 Completed [facility] MMR 2004-02-24 00:00:00 Completed [facility] IPV 2004-02-24 00:00:00 Completed [facility] MMR 2004-02-24 00:00:00 Completed [facility] IPV 2004-02-24 00:00:00 Completed [facility] MMR 2004-02-24 00:00:00 Completed [facility] IPV 2004-02-24 00:00:00 Completed [facility] MMR 2004-02-24 00:00:00 Completed [facility] IPV 2004-02-24 00:00:00 Completed [facility] MMR 2004-02-24 00:00:00 Completed [facility] IPV 2004-02-24 00:00:00 Completed [facility] HEPATITIS A 2003-06-15 00:00:00 Completed [facility] HEPATITIS A 2003-06-15 00:00:00 Completed [facility] HEPATITIS A 2003-06-15 00:00:00 Completed [facility] HEPATITIS A 2003-06-15 00:00:00 Completed [facility] HEPATITIS A 2003-06-15 00:00:00 Completed [facility] HEPATITIS A 2003-06-15 00:00:00 Completed [facility] HEPATITIS A 2003-06-15 00:00:00 Completed [facility] HEPATITIS A 2003-06-15 00:00:00 Completed [facility] HEPATITIS A 2003-06-15 00:00:00 Completed [facility] HEPATITIS A 2003-06-15 00:00:00 Completed [facility] HEPATITIS A 2002-09-28 00:00:00 Completed [facility] HEPATITIS A 2002-09-28 00:00:00 Completed [facility] HEPATITIS A 2002-09-28 00:00:00 Completed [facility] HEPATITIS A 2002-09-28 00:00:00 Completed [facility] HEPATITIS A 2002-09-28 00:00:00 Completed [facility] HEPATITIS A 2002-09-28 00:00:00 Completed [facility] HEPATITIS A 2002-09-28 00:00:00 Completed [facility] HEPATITIS A 2002-09-28 00:00:00 Completed [facility] HEPATITIS A 2002-09-28 00:00:00 Completed [facility] HEPATITIS A 2002-09-28 00:00:00 Completed [facility] HIB 4 Dose Schedule 2001-01-22 00:00:00 Completed [facility] MMR 2001-01-22 00:00:00 Completed [facility] IPV 2001-01-22 00:00:00 Completed [facility] Varicella (varivax)(chicken pox) 2001-01-22 00:00:00 Completed [facility] HIB 4 Dose Schedule 2001-01-22 00:00:00 Completed [facility] MMR 2001-01-22 00:00:00 Completed [facility] IPV 2001-01-22 00:00:00 Completed [facility] Varicella (varivax)(chicken pox) 2001-01-22 00:00:00 Completed [facility] HIB 4 Dose Schedule 2001-01-22 00:00:00 Completed [facility] MMR 2001-01-22 00:00:00 Completed [facility] IPV 2001-01-22 00:00:00 Completed [facility] Varicella (varivax)(chicken pox) 2001-01-22 00:00:00 Completed [facility] HIB 4 Dose Schedule 2001-01-22 00:00:00 Completed [facility] MMR 2001-01-22 00:00:00 Completed [facility] IPV 2001-01-22 00:00:00 Completed [facility] Varicella (varivax)(chicken pox) 2001-01-22 00:00:00 Completed [facility] HIB 4 Dose Schedule 2001-01-22 00:00:00 Completed [facility] MMR 2001-01-22 00:00:00 Completed [facility] IPV 2001-01-22 00:00:00 Completed [facility] Varicella (varivax)(chicken pox) 2001-01-22 00:00:00 Completed [facility] HIB 4 Dose Schedule 2001-01-22 00:00:00 Completed [facility] MMR 2001-01-22 00:00:00 Completed [facility] IPV 2001-01-22 00:00:00 Completed [facility] Varicella (varivax)(chicken pox) 2001-01-22 00:00:00 Completed [facility] HIB 4 Dose Schedule 2001-01-22 00:00:00 Completed [facility] MMR 2001-01-22 00:00:00 Completed [facility] IPV 2001-01-22 00:00:00 Completed [facility] Varicella (varivax)(chicken pox) 2001-01-22 00:00:00 Completed [facility] HIB 4 Dose Schedule 2001-01-22 00:00:00 Completed [facility] MMR 2001-01-22 00:00:00 Completed [facility] IPV 2001-01-22 00:00:00 Completed [facility] Varicella (varivax)(chicken pox) 2001-01-22 00:00:00 Completed [facility] HIB 4 Dose Schedule 2001-01-22 00:00:00 Completed [facility] MMR 2001-01-22 00:00:00 Completed [facility] IPV 2001-01-22 00:00:00 Completed [facility] Varicella (varivax)(chicken pox) 2001-01-22 00:00:00 Completed [facility] HIB 4 Dose Schedule 2001-01-22 00:00:00 Completed [facility] MMR 2001-01-22 00:00:00 Completed [facility] IPV 2001-01-22 00:00:00 Completed [facility] Varicella (varivax)(chicken pox) 2001-01-22 00:00:00 Completed [facility] Hep B, Adol or Pedi Dosage 2000 00:00:00 Completed [facility] HIB 4 Dose Schedule 2000 00:00:00 Completed [facility] Hep B, Adol or Pedi Dosage 2000 00:00:00 Completed [facility] HIB 4 Dose Schedule 2000 00:00:00 Completed [facility] Hep B, Adol or Pedi Dosage 2000 00:00:00 Completed [facility] HIB 4 Dose Schedule 2000 00:00:00 Completed [facility] Hep B, Adol or Pedi Dosage 2000 00:00:00 Completed [facility] HIB 4 Dose Schedule 2000 00:00:00 Completed [facility] Hep B, Adol or Pedi Dosage 2000 00:00:00 Completed [facility] HIB 4 Dose Schedule 2000 00:00:00 Completed [facility] Hep B, Adol or Pedi Dosage 2000 00:00:00 Completed [facility] HIB 4 Dose Schedule 2000 00:00:00 Completed [facility] Hep B, Adol or Pedi Dosage 2000 00:00:00 Completed [facility] HIB 4 Dose Schedule 2000 00:00:00 Completed [facility] Hep B, Adol or Pedi Dosage 2000 00:00:00 Completed [facility] HIB 4 Dose Schedule 2000 00:00:00 Completed [facility] Hep B, Adol or Pedi Dosage 2000 00:00:00 Completed [facility] HIB 4 Dose Schedule 2000 00:00:00 Completed [facility] Hep B, Adol or Pedi Dosage 2000 00:00:00 Completed [facility] HIB 4 Dose Schedule 2000 00:00:00 Completed [facility] HIB 4 Dose Schedule 2000 00:00:00 Completed [facility] IPV 2000 00:00:00 Completed [facility] HIB 4 Dose Schedule 2000 00:00:00 Completed [facility] IPV 2000 00:00:00 Completed [facility] HIB 4 Dose Schedule 2000 00:00:00 Completed [facility] IPV 2000 00:00:00 Completed [facility] HIB 4 Dose Schedule 2000 00:00:00 Completed [facility] IPV 2000 00:00:00 Completed [facility] HIB 4 Dose Schedule 2000 00:00:00 Completed [facility] IPV 2000 00:00:00 Completed [facility] HIB 4 Dose Schedule 2000 00:00:00 Completed [facility] IPV 2000 00:00:00 Completed [facility] HIB 4 Dose Schedule 2000 00:00:00 Completed [facility] IPV 2000 00:00:00 Completed [facility] HIB 4 Dose Schedule 2000 00:00:00 Completed [facility] IPV 2000 00:00:00 Completed [facility] HIB 4 Dose Schedule 2000 00:00:00 Completed [facility] IPV 2000 00:00:00 Completed [facility] HIB 4 Dose Schedule 2000 00:00:00 Completed [facility] IPV 2000 00:00:00 Completed [facility] Hep B, Adol or Pedi Dosage 2000 00:00:00 Completed [facility] HIB 4 Dose Schedule 2000 00:00:00 Completed [facility] IPV 2000 00:00:00 Completed [facility] Hep B, Adol or Pedi Dosage 2000 00:00:00 Completed [facility] HIB 4 Dose Schedule 2000 00:00:00 Completed [facility] IPV 2000 00:00:00 Completed [facility] Hep B, Adol or Pedi Dosage 2000 00:00:00 Completed [facility] HIB 4 Dose Schedule 2000 00:00:00 Completed [facility] IPV 2000 00:00:00 Completed [facility] Hep B, Adol or Pedi Dosage 2000 00:00:00 Completed [facility] HIB 4 Dose Schedule 2000 00:00:00 Completed [facility] IPV 2000 00:00:00 Completed [facility] Hep B, Adol or Pedi Dosage 2000 00:00:00 Completed [facility] HIB 4 Dose Schedule 2000 00:00:00 Completed [facility] IPV 2000 00:00:00 Completed [facility] Hep B, Adol or Pedi Dosage 2000 00:00:00 Completed [facility] HIB 4 Dose Schedule 2000 00:00:00 Completed [facility] IPV 2000 00:00:00 Completed [facility] Hep B, Adol or Pedi Dosage 2000 00:00:00 Completed [facility] HIB 4 Dose Schedule 2000 00:00:00 Completed [facility] IPV 2000 00:00:00 Completed [facility] Hep B, Adol or Pedi Dosage 2000 00:00:00 Completed [facility] HIB 4 Dose Schedule 2000 00:00:00 Completed [facility] IPV 2000 00:00:00 Completed [facility] Hep B, Adol or Pedi Dosage 2000 00:00:00 Completed [facility] HIB 4 Dose Schedule 2000 00:00:00 Completed [facility] IPV 2000 00:00:00 Completed [facility] Hep B, Adol or Pedi Dosage 2000 00:00:00 Completed [facility] HIB 4 Dose Schedule 2000 00:00:00 Completed [facility] IPV 2000 00:00:00 Completed [facility] Hep B, Adol or Pedi Dosage 2000 00:00:00 Completed [facility] Hep B, Adol or Pedi Dosage 2000 00:00:00 Completed [facility] Hep B, Adol or Pedi Dosage 2000 00:00:00 Completed [facility] Hep B, Adol or Pedi Dosage 2000 00:00:00 Completed [facility] Hep B, Adol or Pedi Dosage 2000 00:00:00 Completed [facility] Hep B, Adol or Pedi Dosage 2000 00:00:00 Completed [facility] Hep B, Adol or Pedi Dosage 2000 00:00:00 Completed [facility] Hep B, Adol or Pedi Dosage 2000 00:00:00 Completed [facility] Hep B, Adol or Pedi Dosage 2000 00:00:00 Completed [facility] Hep B, Adol or Pedi Dosage 2000 00:00:00 Completed [facility] TDAP Unknown Completed [facility] Influenza Virus Vaccine Quad .5 mL IM 6+ MO (FLUZONE/FLULAVAL/FL UARIX) Unknown Completed [facility] Influenza Virus Vaccine Quad IM, Preserv and ABX Free 6 MO-64 YRS (FLUCELVAX) Unknown Completed [facility] Influenza Virus Vaccine - Whole Unknown Completed [facility] Influenza Virus Vaccine Nasal Unknown Completed [facility] HEPATITIS A Unknown Completed [facility] Hep B, Adol or Pedi Dosage Unknown Completed [facility] HIB 4 Dose Schedule Unknown Completed [facility] HPV Unknown Completed [facility] Meningococcal Polysaccharide (groups A, C, Y and W-135) conjugate vaccine (MCV4P) Unknown Completed [facility] Meningococcal B, OMV Unknown Completed [facility] MMR Unknown Completed [facility] IPV Unknown Completed [facility] Varicella (varivax)(chicken pox) Unknown Completed [facility] TDAP Unknown Completed [facility] Influenza Virus Vaccine Quad .5 mL IM 6+ MO (FLUZONE/FLULAVAL/FL UARIX) Unknown Completed [facility] Influenza Virus Vaccine Quad IM, Preserv and ABX Free 6 [place]-64 YRS (FLUCELVAX) Unknown Completed [facility] Influenza Virus Vaccine - Whole Unknown Completed [facility] Influenza Virus Vaccine Nasal Unknown Completed [facility] HEPATITIS A Unknown Completed [facility] Hep B, Adol or Pedi Dosage Unknown Completed [facility] HIB 4 Dose Schedule Unknown Completed [facility] HPV Unknown Completed [facility] Meningococcal Polysaccharide (groups A, C, Y and W-135) conjugate vaccine (MCV4P) Unknown Completed [facility] Meningococcal B, OMV Unknown Completed [facility] MMR Unknown Completed [facility] IPV Unknown Completed [facility] Varicella (varivax)(chicken pox) Unknown Completed [facility] TDAP Unknown Completed [facility] Influenza Virus Vaccine Quad .5 mL IM 6+ MO (FLUZONE/FLULAVAL/FL UARIX) Unknown Completed [facility] Influenza Virus Vaccine Quad IM, Preserv and ABX Free 6 MO-64 YRS (FLUCELVAX) Unknown Completed [facility] Influenza Virus Vaccine - Whole Unknown Completed [facility] Influenza Virus Vaccine Nasal Unknown Completed [facility] HEPATITIS A Unknown Completed [facility] Hep B, Adol or Pedi Dosage Unknown Completed [facility] HIB 4 Dose Schedule Unknown Completed [facility] HPV Unknown Completed [facility] Meningococcal Polysaccharide (groups A, C, Y and W-135) conjugate vaccine (MCV4P) Unknown Completed [facility] Meningococcal B, OMV Unknown Completed [facility] MMR Unknown Completed [facility] IPV Unknown Completed [facility] Varicella (varivax)(chicken pox) Unknown Completed [facility] TDAP Unknown Completed [facility] Influenza Virus Vaccine Quad .5 mL IM 6+ MO (FLUZONE/FLULAVAL/FL UARIX) Unknown Completed [facility] Influenza Virus Vaccine Quad IM, Preserv and ABX Free 6 MO-64 YRS (FLUCELVAX) Unknown Completed [facility] Influenza Virus Vaccine - Whole Unknown Completed [facility] Influenza Virus Vaccine Nasal Unknown Completed [facility] HEPATITIS A Unknown Completed [facility] Hep B, Adol or Pedi Dosage Unknown Completed [facility] HIB 4 Dose Schedule Unknown Completed [facility] HPV Unknown Completed [facility] Meningococcal Polysaccharide (groups A, C, Y and W-135) conjugate vaccine (MCV4P) Unknown Completed [facility] Meningococcal B, OMV Unknown Completed [facility] MMR Unknown Completed [facility] IPV Unknown Completed [facility] Varicella (varivax)(chicken pox) Unknown Completed [facility] TDAP Unknown Completed [facility] Influenza Virus Vaccine Quad .5 mL IM 6+ MO (FLUZONE/FLULAVAL/FL UARIX) Unknown Completed [facility] Influenza Virus Vaccine Quad IM, Preserv and ABX Free 6 MO-64 YRS (FLUCELVAX) Unknown Completed [facility] Influenza Virus Vaccine - Whole Unknown Completed [facility] Influenza Virus Vaccine Nasal Unknown Completed [facility] HEPATITIS A Unknown Completed [facility] Hep B, Adol or Pedi Dosage Unknown Completed [facility] HIB 4 Dose Schedule Unknown Completed [facility] HPV Unknown Completed [facility] Meningococcal Polysaccharide (groups A, C, Y and W-135) conjugate vaccine (MCV4P) Unknown Completed [facility] Meningococcal B, OMV Unknown Completed [facility] MMR Unknown Completed [facility] IPV Unknown Completed [facility] Varicella (varivax)(chicken pox) Unknown Completed [facility] Influenza Virus Vaccine Quad IM, Preserv and ABX Free 6 MO-64 YRS (FLUCELVAX) Unknown Completed [facility] Influenza Virus Vaccine Nasal Unknown Completed [facility] TDAP Unknown Completed [facility] Influenza Virus Vaccine Quad .5 mL IM 6+ MO (FLUZONE/FLULAVAL/FL UARIX) Unknown Completed [facility] Influenza Virus Vaccine - Whole Unknown Completed [facility] HEPATITIS A Unknown Completed [facility] Hep B, Adol or Pedi Dosage Unknown Completed [facility] HIB 4 Dose Schedule Unknown Completed [facility] HPV Unknown Completed [facility] Meningococcal Polysaccharide (groups A, C, Y and W-135) conjugate vaccine (MCV4P) Unknown Completed [facility] Meningococcal B, OMV Unknown Completed [facility] MMR Unknown Completed [facility] IPV Unknown Completed [facility] Varicella (varivax)(chicken pox) Unknown Completed [facility] Vital Signs Vital Name Observation Time Observation Value Comments S abdullahiabraham Systolic blood pressure 2023-10-29 19:23:00 122 mm[Hg] [facility] Diastolic blood pressure 2023-10-29 19:23:00 78 mm[Hg] [facility] Heart rate 2023-10-29 19:23:00 72 /min [facility] Body temperature 2023-10-29 19:23:00 36.44 Zuly [facility] Respiratory rate 2023-10-29 19:23:00 18 /min [facility] Body height 2023-10-29 19:23:00 157.5 cm [facility] Body weight 2023-10-29 19:23:00 81.194 kg [facility] BMI 2023-10-29 19:23:00 32.74 kg/m2 [facility] Systolic blood pressure 2022-08-28 18:49:00 127 mm[Hg] [facility] Diastolic blood pressure 2022-08-28 18:49:00 87 mm[Hg] [facility] Heart rate 2022-08-28 18:49:00 77 /min [facility] Body temperature 2022-08-28 18:49:00 36.06 Zuly [facility] Respiratory rate 2022-08-28 18:49:00 17 /min [facility] Body weight 2022-08-28 18:49:00 82.555 kg [facility] BMI 2022-08-28 18:49:00 33.28 kg/m2 [facility] Systolic blood pressure 2022-08-22 21:39:00 137 mm[Hg] [facility] Diastolic blood pressure 2022-08-22 21:39:00 87 mm[Hg] [facility] Heart rate 2022-08-22 21:39:00 63 /min [facility] Body temperature 2022-08-22 21:39:00 36.78 Zuly [facility] Respiratory rate 2022-08-22 21:39:00 18 /min [facility] Oxygen saturation in Arterial blood by Pulse oximetry 2022-08-22 21:39:00 99 /min [facility] Body height 2022-08-21 00:19:00 157.5 cm [facility] Body weight 2022-08-21 00:19:00 90.402 kg [facility] BMI 2022-08-21 00:19:00 36.44 kg/m2 [facility] Systolic blood pressure 2022-08-20 20:22:00 149 mm[Hg] [facility] Diastolic blood pressure 2022-08-20 20:22:00 90 mm[Hg] [facility] Heart rate 2022-08-20 20:21:00 75 /min [facility] Body temperature 2022-08-20 20:21:00 36.22 Zuly [facility] Respiratory rate 2022-08-20 20:21:00 17 /min [facility] Body height 2022-08-20 20:21:00 157.5 cm [facility] Body weight 2022-08-20 20:21:00 90.538 kg [facility] BMI 2022-08-20 20:21:00 36.51 kg/m2 [facility] Systolic blood pressure 2022-07-30 18:02:00 133 mm[Hg] [facility] Diastolic blood pressure 2022-07-30 18:02:00 78 mm[Hg] [facility] Heart rate 2022-07-30 18:02:00 81 /min [facility] Body temperature 2022-07-30 18:02:00 36.44 Zuly [facility] Respiratory rate 2022-07-30 18:02:00 18 /min [facility] Body height 2022-07-30 18:02:00 157.5 cm [facility] Body weight 2022-07-30 18:02:00 88.996 kg [facility] BMI 2022-07-30 18:02:00 35.89 kg/m2 [facility] Systolic blood pressure 2022-07-03 15:36:00 124 mm[Hg] [facility] Diastolic blood pressure 2022-07-03 15:36:00 84 mm[Hg] [facility] Heart rate 2022-07-03 15:36:00 80 /min [facility] Body temperature 2022-07-03 15:36:00 35.83 Zuly [facility] Respiratory rate 2022-07-03 15:36:00 18 /min [facility] Body height 2022-07-03 15:36:00 157.5 cm [facility] Body weight 2022-07-03 15:36:00 86.365 kg [facility] BMI 2022-07-03 15:36:00 34.82 kg/m2 [facility] Systolic blood pressure 2022-06-18 19:39:00 115 mm[Hg] [facility] Diastolic blood pressure 2022-06-18 19:39:00 68 mm[Hg] [facility] Heart rate 2022-06-18 19:39:00 78 /min [facility] Body temperature 2022-06-18 19:39:00 36.28 Zuly [facility] Respiratory rate 2022-06-18 19:39:00 16 /min [facility] Body height 2022-06-18 19:39:00 157.5 cm [facility] Body weight 2022-06-18 19:39:00 86.138 kg [facility] BMI 2022-06-18 19:39:00 34.73 kg/m2 [facility] Systolic blood pressure 2022-03-22 14:14:00 125 mm[Hg] [facility] Diastolic blood pressure 2022-03-22 14:14:00 74 mm[Hg] [facility] Heart rate 2022-03-22 14:14:00 75 /min [facility] Body temperature 2022-03-22 14:14:00 36.28 Zuly [facility] Respiratory rate 2022-03-22 14:14:00 18 /min [facility] Body weight 2022-03-22 14:14:00 85.049 kg [facility] BMI 2022-03-22 14:14:00 34.29 kg/m2 [facility] Procedures Procedure Date / Time Performed Performing Clinician Source POCT TEST 2023-10-29 20:07:00 Aparna Rees [facility] THYROID STIMULATING HORMONE 2023-10-29 20:05:00 Aparna Rees [facility] CBC WITH DIFF 2023-10-29 20:05:00 [facility] WITH DIFF 2022-08-22 09:36:00 Jayne Goff Mai [facility] VENOUS CORD GAS 2022-08-21 10:05:00 Ly, [facility] CENTRAL NEURAXIAL BLOCK 2022-08-21 04:41:00 Imelda Gonzalez [facility] SGOT (ASPARTATE AMINO TRANSFER) 2022-08-21 01:47:00 Ly, [facility] CREATININE 2022-08-21 01:47:00 Ly, [facility] ALANINE AMINO TRANSFERASE(SGPT 2022-08-21 01:47:00 Ly, [facility] LACTATE DEHYDROGENASE 2022-08-21 01:47:00 Ly, [facility] URIC ACID 2022-08-21 01:47:00 Ly, [facility] CBC WITH DIFF 2022-08-21 01:47:00 Ly, [facility] URINALYSIS 2022-08-21 01:47:00 Ly, [facility] HEPATITIS B SURFACE ANTIGEN 2022-08-21 01:47:00 Ly, [facility] HB ABO GROUPING 2022-08-21 01:47:00 Ly, [facility] RHO (D) IMMUNE GLOBULIN 2022-08-21 01:47:00 Jill Salguero Mai [facility] PROTEIN CREAT RATIO URINE RANDOM 2022-08-21 01:47:00 Ly, [facility] SYPHILIS IGG/IGM 2022-08-21 01:47:00 Ly, [facility] COVID-19 (ID NOW RAPID TESTING) 2022-08-21 00:30:00 Guille [facility] LAB ONLY COVID INTERPRETATION 2022-08-21 00:30:00 Guille [facility] GALV ONLY - INFLUENZA A B RSV PCR 2022-08-20 20:24:00 Ly, [facility] POCT URINALYSIS 2022-08-20 00:00:00 Gay Coe [facility] CBC WITH DIFF 2022-07-30 18:50:00 Merly Gardner [facility] POCT URINALYSIS 2022-07-30 18:02:00 Gay Coe [facility] ASSIGNMENT OF BENEFITS 2022-07-30 17:42:37 Docto r Unassigned, [place] [facility] POCT URINALYSIS 2022-07-03 15:39:00 Gay Coe [facility] CBC WITH DIFF 2022-06-18 20:07:00 Merly Gardner [facility] HIV 1/2 AG-AB WITH REFLEX 2022-06-18 20:07:00 Merly Artis [facility] TDAP VACCINE, >11 YRS, IM 2022-06-18 19:58:57 Merly Artis [facility] POCT URINALYSIS 2022-06-18 00:00:00 Gay Coe [facility] POCT URINALYSIS 2022-03-22 14:15:00 Gay Coe [facility] Encounters Start Date/Time End Date/Time Encounter Type Admission Type Attending [facility] Care Facility Care Department Encounter ID Source 2023-10-29 14:15:00 2023-10-29 15:07:58 Outpatient R APARNA REES [facility] [id number] [facility] 2023-10-29 14:15:00 2023-10-29 15:07:58 Office Visit Aparna Rees [facility] [place] CERT[facility] 1.2.840.114 350.1.13.10 4.2.7.2.686 [id number] [facility] 2022-12-24 15:00:00 2022-12-24 15:00:00 Outpatient R MERLY GARDNER [facility] [id number] [facility] 2022-11-21 14:45:00 2022-11-21 14:45:00 Outpatient R JESUS ONEILLOLA [facility] [id number] [facility] 2022-09-16 10:15:00 2022-09-16 10:15:00 Outpatient R ROZINA ONEILL [facility] [id number] [facility] 2022-08-28 13:30:00 2022-08-28 14:01:39 Nurse Visit Visit, [facility] Nurse Rozina Oneill [facility] [place] CERTIFIED [facility] 1.2840.114 350.1.13.10 4.2.7.2.686 [id number] [facility] 2022-08-28 13:30:00 2022-08-28 13:30:00 Outpatient ROZINA DEE [facility] [id number] [facility] 2022-08-23 00:00:00 2022-08-23 00:00:00 Telephone Rozina Oneill [facility] CERTIFIED [facility] 1.840.114 350.1.13.10 4.2.7.2.686 [id number] [facility] 2022-08-23 00:00:00 2022-08-23 00:00:00 Patient Secure Msg Doctor Unassigned, [place] [facility] 1.2840.114 350.1.13.10 4.2.7.2.686 [id number] [facility] 2022-08-23 00:00:00 2022-08-23 00:00:00 Patient Secure Msg Doctor Unassigned, [place] [facility] 1.2840.114 350.1.13.10 4.2.7.2.686 [id number] [facility] 2022-08-20 19:09:00 2022-08-22 20:49:00 Hospital Encounter Turner Tinoco [facility] 1.2840.114 350.1.13.10 4.2.7.2.686 [id number] [facility] 2022-08-20 22:35:00 2022-08-21 06:52:00 Anesthesia Event Oscar Gonzalez, [place] [facility] 1..840.114 350.1.13.10 4.2.7.2.686 [id number] [facility] 2022-08-20 15:00:00 2022-08-20 15:48:28 Outpatient R MERLY GARDNER [facility] [id number] [facility] 2022-08-20 15:00:00 2022-08-20 15:48:28 Routine Visit Mrely Gardner [facility] [place] CERTIFIED [facility] 1..840.114 350.1.13.10 4.2.7.2.686 [id number] [facility] 2022-08-20 15:00:00 2022-08-20 15:48:28 Outpatient R MERLY GARDNER [facility] LINO [id number] [facility] 2022-08-06 15:15:00 2022-08-06 15:15:00 Outpatient R ROZINA ONEILL [facility] [id number] [facility] 2022-08-03 00:00:00 2022-08-03 00:00:00 Patient Secure Msg Doctor Unassigned, [place] [facility] 1..840.114 350.1.13.10 4.2.7.2.686 [id number] [facility] 2022-07-30 12:45:00 2022-07-30 13:40:37 Outpatient R MERLY GARDNER [facility] [id number] [facility] 2022-07-30 12:45:00 2022-07-30 13:40:37 Routine Visit Provider, Luis-Merly Han [facility] CERTIFIED [facility] 1..114 350.1.13.10 4.2.7.2.686 [id number] [facility] 2022-07-30 00:00:00 2022-07-30 00:00:00 Orders Only Doctor Unassigned, [place] [facility] 1..114 350.1.13.10 4.2.7.2.686 [id number] [facility] 2022-07-28 00:00:00 2022-07-28 00:00:00 Patient Secure Msg Doctor Unassigned, [place] [facility] 1..114 350.1.13.10 4.2.7.2.686 [id number] [facility] 2022-07-18 12:45:00 2022-07-18 12:45:00 Outpatient R MERLY GARDNER [facility] [id number] [facility] 2022-07-03 09:00:00 2022-07-03 10:12:46 Outpatient R ROZINA ONEILL [facility] [id number] [facility] 2022-07-03 09:00:00 2022-07-03 10:12:46 Routine Visit Rozina Oneill [facility] CERTIFIED [facility] 1..114 350.1.13.10 4.2.7.2.686 [id number] [facility] 2022-06-19 00:00:00 2022-06-19 00:00:00 Case Management Merly Gardner [facility] CERTIFIED [facility] 1.0.114 350.1.13.10 4.2.7.2.686 [id number] [facility] 2022-06-18 13:30:00 2022-06-18 14:20:07 Outpatient R ROZINA ONEILL [facility] [id number] [facility] 2022-06-18 13:30:00 2022-06-18 14:20:07 Routine Visit Provider, Rozina Melo [facility] CERTIFIED [facility] 1.2.840.114 350.1.13.10 4.2.7.2.686 [id number] [facility] 2022-05-29 08:45:00 2022-05-29 08:45:00 Outpatient R ROZINA ONEILL [facility] [id number] [facility] 2022-04-24 09:45:00 2022-04-24 09:45:00 Outpatient ROZINA DEE [facility] [id number] [facility] 2022-04-18 00:00:00 2022-04-18 00:00:00 Abstract Rozina Oneill [facility] CERTIFIED [facility] 1.2.840.114 350.1.13.10 4.2.7.2.686 [id number] [facility] 2022-04-17 08:00:00 2022-04-17 09:00:00 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 Setter Visit Ultrasound, Merary James [facility] CERTIFIED [facility] 1.2.840.114 350.1.13.10 4.2.7.2.686 [id number] [facility] 2022-04-17 08:00:00 2022-04-17 08:00:00 Outpatient MERARY RODGERS SANGEETA [facility] [id number] [facility] 2022-03-22 09:00:00 2022-03-22 10:02:01 Outpatient R MERLY GARDNER [facility] [id number] [facility] 2022-03-22 09:00:00 2022-03-22 10:02:01 Routine Visit Provider, JorgeRmchp Merly Peres [facility] [place] CERTIFIED [facility] 1..114 350.1.13.10 4.2.7.2.686 [id number] [facility] 2022-03-15 09:30:00 2022-03-15 09:30:00 Outpatient MERLY ROMERO [facility] [id number] [facility] 2022-03-04 07:45:00 2022-03-04 07:45:00 Outpatient GAY HUMMEL [facility] [id number] [facility] 2022-02-21 08:00:00 2022-02-21 08:30:00 Collar Setter Visit Ultrasound, Last Camacho [facility] [place] CERTIFIED [facility] 1..114 350.1.13.10 4.2.7.2.686 [id number] [facility] 2022-02-21 08:00:00 2022-02-21 08:00:00 Outpatient LAST MEADE [facility] [id number] [facility] 2022-02-21 08:00:00 2022-02-21 08:00:00 Outpatient Bia [facility] [id number] [facility] 2022-02-21 00:00:00 2022-02-21 00:00:00 Abstract Clara Leung [facility] [place] CERTIFIED [facility] ..114 350.1.13.10 4.2.7.2.686 [id number] [facility] 2022-02-10 00:00:00 2022-02-10 00:00:00 Patient Secure Msg Doctor Unassigned, [place] [facility] 1.114 350.1.13.10 4.2.7.2.686 [id number] [facility] 2022-02-10 00:00:00 2022-02-10 00:00:00 Telephone CoeGay [facility] [place] CERTIFIED [facility] 1.2.840.114 350.1.13.10 4.2.7.2.686 [id number] [facility] 2022-02-05 00:00:00 2022-02-05 00:00:00 Telephone Arsenio Gay Fuentes [facility] CERTIFIED [facility] 1.2.840.114 350.1.13.10 4.2.7.2.686 [id number] [facility] 2022-02-04 00:00:00 2022-02-04 00:00:00 Telephone CoeGay [facility] CERTIFIED [facility] 1.2.840.114 350.1.13.10 4.2.7.2.686 [id number] [facility] 2022-02-01 00:00:00 2022-02-01 00:00:00 Patient Secure Msg Gay Coe [facility] CERTIFIED [facility] 1.2.840.114 350.1.13.10 4.2.7.2.686 [id number] [facility] 2022-01-31 09:15:00 2022-01-31 09:48:42 Outpatient R GAY COE [facility] [id number] [facility] 2022-01-31 09:15:00 2022-01-31 09:48:42 Outpatient R GAY COE [facility] [id number] [facility] 2022-01-31 09:15:00 2022-01-31 09:48:42 Initial Visit Gay Coe [facility] CERTIFIED [facility] 1.0.114 350.1.13.10 4.2.7.2.686 [id number] [facility] 2022-01-31 00:00:00 2022-01-31 00:00:00 Orders Only Doctor Unassigned, [place] [facility] 1.2840.114 350.1.13.10 4.2.7.2.686 [id number] [facility] 2021-02-21 00:00:00 2021-02-21 00:00:00 Telephone Rozina Oneill [facility] CERTIFIED [facility] 1..114 350.1.13.10 4.2.7.2.686 [id number] [facility] 2020-08-08 00:00:00 2020-08-08 00:00:00 Patient Outreach Luis Alfredo Max [facility] 1..114 350.1.13.10 4.2.7.2.686 [id number] 2020-07-05 15:45:00 2020-07-05 15:45:00 Outpatient R ROZINA ONEILL [facility] [id number] [facility] 2020-06-29 00:00:00 2020-06-29 00:00:00 Orders Only Doctor Unassigned, [place] [facility] 1.2.114 350.1.13.10 4.2.7.2.686 [id number] 2020-06-14 08:15:00 2020-06-14 08:15:00 Outpatient R [facility] [id number] [facility] 2020-06-07 14:57:16 2020-06-07 15:57:08 Initial Visit Rozina Oneill [facility] CERTIFIED [facility] 1.0.114 350.1.13.10 4.2.7.2.686 [id number] 2020-06-07 14:00:00 2020-06-07 14:00:00 Outpatient R ROZINA ONEILL [facility] [id number] [facility] 2020-06-07 00:00:00 2020-06-07 00:00:00 Orders Only Doctor Unassigned, [place] [facility] 1.2.840.114 350.1.13.10 4.2.7.2.686 [id number] 2019-05-03 00:00:00 2019-05-03 00:00:00 Patient Secure Msg Doctor Unassigned, [place] [facility] 1.2.840.114 350.1.13.10 4.2.7.2.686 [id number] 2019-02-04 10:51:35 2019-02-04 11:16:15 Routine Visit CoeGay [facility] [place] CERTIFIED [facility] 1.2.840.114 350.1.13.10 4.2.7.2.686 [id number] 2019-01-26 11:12:01 2019-01-26 11:58:34 [facility] [id number] [id number] 4.2.7.2.686 [id number] Results Test Description Test Time Test Comments Results Result Co mments Source [facility] [id number] 05:02:33 * Test Item Value Reference Range Interpretation Comme nts TSH (test code = 2331549388) 1.74 0.45-4.70 Biotin has been reported to cause a negative bias, interpret results relative to patient's use of biotin. Lab Interpretation (test code = 46070-9) Normal [facility] [id number] 04:25:11* Test Item Value Reference Range Interpretation Comme nts WBC (test code = 6690-2) 8.55 4.30-11.10 RBC (test code = 789-8) 4.27 3.93-5.25 HGB (test code = 718-7) 12.4 g/dL 11.6-15.0 HCT (test code = 4544-3) 37.4 % 35.7-45.2 MCV (test code = 787-2) 87.6 fL 80.6-95.5 MCH (test code = 785-6) 29.0 pg 25.9-32.8 MCHC (test code = 786-4) 33.2 g/dL 31.6-35.1 RDW-SD (test code = 58602-0) 42.2 fL 39.0-49.9 RDW-CV (test code = 788-0) 13.2 % 12.0-15.5 PLT (test code = 777-3) 320 166-358 MPV (test code = 06608-4) 11.0 fL 9.5-12.9 NRBC/100 WBC (test code = 9122748414) 0.0 0.0-10.0 NRBC x10^3 (test code = 2558876156) See_Comment [Automated me ssage] The system which generated this result transmitted reference range: 10*3/?L. The reference range was not used to interpret this result as normal/abnormal. GRAN MAT (NEUT) % (test code = 770-8) 61.0 % IMM GRAN % (test code = 3509634970) 0.20 % LYMPH % (test code = 736-9) 29.9 % MONO % (test code = 5905-5) 6.0 % EOS % (test code = 713-8) 2.5 % BASO % (test code = 706-2) 0.4 % GRAN MAT x10^3(ANC) (test code = 8424904595) 5.22 10*3/uL 1.88-7.09 IMM GRAN x10^3 (test code = 5321066458) 0.00-0.06 LYMPH x10^3 (test code = 731-0) 2.56 10*3/uL 1.32-3.29 MONO x10^3 (test code = 742-7) 0.51 10*3/uL 0.33-0.92 EOS x10^3 (test code = 711-2) 0.21 10*3/uL 0.03-0.39 BASO x10^3 (test code = 704-7) 0.03 10*3/uL 0.01-0.07 [facility] WITH [id number] 04:25:11* Test Item Value Reference Range Interpretation Comme nts WBC (test code = 6690-2) 8.55 4.30-11.10 RBC (test code = 789-8) 4.27 3.93-5.25 HGB (test code = 718-7) 12.4 g/dL 11.6-15.0 HCT (test code = 4544-3) 37.4 % 35.7-45.2 MCV (test code = 787-2) 87.6 fL 80.6-95.5 MCH (test code = 785-6) 29.0 pg 25.9-32.8 MCHC (test code = 786-4) 33.2 g/dL 31.6-35.1 RDW-SD (test code = 42754-5) 42.2 fL 39.0-49.9 RDW-CV (test code = 788-0) 13.2 % 12.0-15.5 PLT (test code = 777-3) 320 166-358 MPV (test code = 50555-7) 11.0 fL 9.5-12.9 NRBC/100 WBC (test code = 7111647679) 0.0 0.0-10.0 NRBC x10^3 (test code = 6073900714) See_Comment [Automated me ssage] The system which generated this result transmitted reference range: 10*3/?L. The reference range was not used to interpret this result as normal/abnormal. GRAN MAT (NEUT) % (test code = 770-8) 61.0 % IMM GRAN % (test code = 1930505581) 0.20 % LYMPH % (test code = 736-9) 29.9 % MONO % (test code = 5905-5) 6.0 % EOS % (test code = 713-8) 2.5 % BASO % (test code = 706-2) 0.4 % GRAN MAT x10^3(ANC) (test code = 8881545516) 5.22 10*3/uL 1.88-7.09 IMM GRAN x10^3 (test code = 2365751054) 0.00-0.06 LYMPH x10^3 (test code = 731-0) 2.56 10*3/uL 1.32-3.29 MONO x10^3 (test code = 742-7) 0.51 10*3/uL 0.33-0.92 EOS x10^3 (test code = 711-2) 0.21 10*3/uL 0.03-0.39 BASO x10^3 (test code = 704-7) 0.03 10*3/uL 0.01-0.07 [facility] [id number] 20:07:00* Test Item Value Reference Range Interpretation Comme [facility] POCT PREG (test code = 1605) Negative On board controls acceptable with C Line (test code = 3574) Yes POCT PREG LOT # (test code = 3575) POCT PREG TEST DATE ( test code = 3576) [facility] [id number] 20:07:00* Test Item Value Reference Range Interpretation Comme nts POCT PREG (test code = 1605) Negative On board controls acceptable with C Line (test code = 3574) Yes POCT PREG LOT # (test code = 3575) POCT PREG TEST DATE ( test code = 3576) [facility] IMMUNE [id number] 13:06:59* Test Item Value Reference Range Interpretation Comme nts RHIG CANDIDATE? (test code = 5188) No- see comment Patient is not a candidate for RhIg- Patient is Rh Positive.Performed at [facility] Laboratory Services - [facility] Blood [id number] [place] [id number] Free: [phone] No. [phone] [facility] CORD [id number] 10:23:04* Test Item Value Reference Range Interpretation Comme [facility] VENOUS BASE EXCESS, CORD (test code = 6690932262) -0.3 mEq/L VENOUS PH, CORD (test code = 9855541905) 7.34 7.25-7.45 VENOUS PC02, CORD (test code = 0563501678) 50 See_Comment H [Automated me ssage] The system which generated this result transmitted reference range: 27 - 49 mmHg. The reference range was not used to interpret this result as normal/abnormal. VENOUS PO2, CORD (test code = 4032102452) 22 See_Comment [Automated me ssage] The system which generated this result transmitted reference range: 17 - 41 mmHg. The reference range was not used to interpret this result as normal/abnormal. VENOUS BICARBONATE, CORD (test code = 3107988205) 26 See_Comment [[employer]oma kathryn message] The system which generated this result transmitted reference range: 12 - 29 mEq/L. The reference range was not used to interpret this result as normal/abnormal. Lab Interpretation (test code = 13157-4) [facility]normal [facility] CORD [id number] 10:22:43* Test Item Value Reference Range Interpretation Comme nts BASE EXCESS, CORD (test code = 3656687693) -2.8 mEq/L QUES AC PH, CORD (BEAKER) (test code = 1924410767) 7.29 7.18-7.38 PC02, CORD (test code = 1845972622) 53 See_Comment [Automated messa ge] The system which generated this result transmitted reference range: 32 - 66 mmHg. The reference range was not used to interpret this result as normal/abnormal. PO2, CORD (test code = 9027421400) 21 See_Comment [Automated messa ge] The system which generated this result transmitted reference range: 10 - 30 mmHg. The reference range was not used to interpret this result as normal/abnormal. BICARBONATE, CORD (test code = 7337691742) 25 See_Comment [Automated messa ge] The system which generated this result transmitted reference range: 17 - 27 mEq/L. The reference range was not used to interpret this result as normal/abnormal. [facility] URINALYSIS W SPECIFIC [id number] 20:27:00* Test Item Value Reference Range Interpretation [...] U APPEAR (test code = 3267) . [facility] WITH [id number] 05:55:15* Test Item Value Reference Range Interpretation Comme nts WBC (test code = 6690-2) 8.34 See_Comment [Automated [employer]] The system which generated this result transmitted reference range: 4.30 - 11.10 10*3/?L. The reference range was not used to interpret this result as normal/abnormal. RBC (test code = 789-8) 4.08 See_Comment [Automated [employer]] The system which generated this result transmitted [...] 32.4 g/dL 31.6-35.1 RDW-SD (test code = 14537-2) 41.6 fL 39.0-49.9 RDW-CV (test code = 788-0) 13.0 % 12.0-15.5 PLT (test code = 777-3) 275 See_Comment [Automated [employer] ge] The system which generated this result transmitted reference range: 166 - 358 10*3/?L. The reference range was not used to interpret this result as normal/abnormal. MPV (test code = 25847-7) 12.3 fL 9.5-12.9 IPF % (test code = 3296748214) 8.4 % 1.3-7.7 H Platelet count measured by fluorescence method. NRBC/100 WBC (test code = 7185842079) 0.0 See_Comment [Automated me ssage] The system which generated this result transmitted reference range: 0.0 - 10.0 /100 WBCs. The reference range was not used to interpret this result as normal/abnormal. NRBC x10^3 (test code = 7630794139) See_Comment [Automated messa ge] The system which generated this result transmitted reference range: 10*3/?L. The reference range was not used to interpret this result as normal/abnormal. GRAN MAT (NEUT) % (test code = 770-8) 72.6 % IMM GRAN % (test code = 4720701057) 0.40 % LYMPH % (test code = 736-9) 20.7 % MONO % (test code = 5905-5) 5.3 % EOS % (test code = 713-8) 0.8 % BASO % (test code = 706-2) 0.2 % GRAN MAT x10^3(ANC) (test code = 5710305286) 6.05 10*3/uL 1.88-7.09 IMM GRAN x10^3 (test code = 0205111969) 0.03 10*3/uL 0.00-0.06 LYMPH x10^3 (test code = 731-0) 1.73 10*3/uL 1.32-3.29 MONO x10^3 (test code = 742-7) 0.44 10*3/uL 0.33-0.92 EOS x10^3 (test code = 711-2) 0.07 10*3/uL 0.03-0.39 BASO x10^3 (test code = 704-7) 0.01-0.07 Lab Interpretation (test code = 88257-0) Abnormal [facility] WITH [id number] 05:55:15* Test Item Value Reference Range Interpretation Comme nts WBC (test code = 6690-2) 8.34 See_Comment [Automated [employer] ge] The system which generated this result transmitted reference range: 4.30 - 11.10 10*3/?L. The reference range was not used to interpret this result as normal/abnormal. RBC (test code = 789-8) 4.08 See_Comment [Automated [employer] ge] The system which generated this result [...] 32.4 g/dL 31.6-35.1 RDW-SD (test code = 04054-8) 41.6 fL 39.0-49.9 RDW-CV (test code = 788-0) 13.0 % 12.0-15.5 PLT (test code = 777-3) 275 See_Comment [Automated [employer] ge] The system which generated this result transmitted reference range: 166 - 358 10*3/?L. The reference range was not used to interpret this result as normal/abnormal. MPV (test code = 29986-3) 12.3 fL 9.5-12.9 IPF % (test code = 4185391702) 8.4 % 1.3-7.7 H Platelet count measured by fluorescence method. NRBC/100 WBC (test code = 5849925949) 0.0 See_Comment [Automated [employer] ssage] The system which generated this result transmitted reference range: 0.0 - 10.0 /100 WBCs. The reference range was not used to interpret this result as normal/abnormal. NRBC x10^3 (test code = 7287826137) See_Comment [Automated [employer] ge] The system which generated this result transmitted reference range: 10*3/?L. The reference range was not used to interpret this result as normal/abnormal. GRAN MAT (NEUT) % (test code = 770-8) 72.6 % IMM GRAN % (test code = 7902295328) 0.40 % LYMPH % (test code = 736-9) 20.7 % MONO % (test code = 5905-5) 5.3 % EOS % (test code = 713-8) 0.8 % BASO % (test code = 706-2) 0.2 % GRAN MAT x10^3(ANC) (test code = 8528192612) 6.05 10*3/uL 1.88-7.09 IMM GRAN x10^3 (test code = 4398594960) 0.03 10*3/uL 0.00-0.06 LYMPH x10^3 (test code = 731-0) 1.73 10*3/uL 1.32-3.29 MONO x10^3 (test code = 742-7) 0.44 10*3/uL 0.33-0.92 EOS x10^3 (test code = 711-2) 0.07 10*3/uL 0.03-0.39 BASO x10^3 (test code = 704-7) 0.01-0.07 Lab Interpretation (test code = 75211-2) Abnormal [facility] URINALYSIS W SPECIFIC [id number] 18:02:00* Test Item Value Reference Range Interpretation [...] U APPEAR (test code = 3267) . [facility] URINALYSIS W SPECIFIC [id number] 18:02:00* Test Item Value Reference Range Interpretation [...] U APPEAR (test code = 3267) . [facility] URINALYSIS W SPECIFIC [id number] 15:39:00* Test Item Value Reference Range Interpretation [...] POCT U APPEAR (test code = 3267) [facility] URINALYSIS W SPECIFIC [id number] 15:39:00* Test Item Value Reference Range Interpretation [...] code = 3261) . Negative - Negat eflicitas POCT U BLD (test code = 3257) . Negative - Negati ve POCT U COLOR (test code = 3266) POCT U APPEAR (test code = 3267) [facility] URINALYSIS W SPECIFIC [id number] 15:39:00* Test Item Value Reference Range Interpretation [...] POCT U APPEAR (test code = 3267) [facility] URINALYSIS W SPECIFIC [id number] 19:52:00* Test Item Value Reference Range Interpretation [...] U APPEAR (test code = 3267) . [facility] URINALYSIS W SPECIFIC [id number] 14:15:00* Test Item Value Reference Range Interpretation [...] POCT U APPEAR (test code = 3267) [facility] URINALYSIS W SPECIFIC [id number] 14:15:00* Test Item Value Reference Range Interpretation Comme nts POCT U SP GRAV (test code = 3255) * 1.005-1.025 POCT PH U (test code = 3254) * 5-8 POCT U LEUK EST (test code = 3263) * Negative - Negative POCT U NIT (test code = 3262) * Negative - Negati ve POCT U PROT (test code = 2079) trace Negative - Negat felicitas POCT U GLU (test code = 3256) negative Negative - Negati ve POCT U KETONE (test code = 7218) * Negative - Neg ative POCT U UROBILI (test code = 3260) * 0.2-1 POCT U BILI (test code = 3261) * Negative - Negat felicitas POCT U BLD (test code = 0867) * Negative - Negati ve POCT U COLOR (test code = 3266) POCT U APPEAR (test code = 9667) [facility]
== END 2024-04-23 10:35 | disposition home or self-care (01) ==
LOC: ER 08:11
DX: J03.00 Acute streptococcal tonsillitis, unspecified (principal); R11.10 Vomiting, unspecified; Z11.52 Encounter for screening for COVID-19
CPT/HCPCS: 36415; 81001; 81025; 87081; 87804; 87811; 96372; 99284; J0696; J8540; Q0162